=== PATIENT | female | born 1960 | race Caucasian/White ===

== ENCOUNTER 2017-04-21 09:51 | Outpatient (RCR) | payer BC ==
[~2017-04-21 09:51] MED LIST: ACHD5005 PO; CALC-250 PO; CLD600T PO; ESTR0.5T3 PO; ESTR1TAB24 PO; LEVO200T6 PO; LUTE20TA PO; LVT.1T PO
== END 2017-07-20 | disposition home or self-care (01) ==
LOC: CARD 09:51
PROVIDERS: ATTEND Family Medicine
DX: R00.2 Palpitations (principal)
CPT/HCPCS: 93225; 93226

== ENCOUNTER → 2017-07-30 | Outpatient (CLI) | payer BC ==
[~2017-07-30] MED LIST changes: +HYDR-3820 PO; +LEVO150T6 PO
--- NOTE | 2017-07-30 10:57 | Diagnostic Imaging Report ---
EXAMINATION: Bilateral breast ultrasound. INDICATION: Left breast lump. FINDINGS: The diagnostic mammogram performed earlier today noted a prominent area of architectural distortion in the upper-outer aspect of the left breast. In this region, there is a poorly defined area of shadowing measuring 2.1 x 1.8 x 2.0 cm. I do suspect that this corresponds to the abnormality seen on the mammogram and this finding should be considered neoplastic until proven otherwise. An ultrasound guided biopsy would be recommended. The mammogram also identified a small rounded area of slightly increased density in the retroareolar region of the right breast. The ultrasound examination of this area, however, shows no discrete abnormality. I suspect that finding was secondary to superimposition. The suspicious microcalcifications in the midportion right breast seen on mammogram could not be identified on this study. IMPRESSION: 1. There is a poorly defined 2.1 x 1.8 x 2.0 cm area of shadowing in the upper-outer aspect of the left breast. This would correspond to the findings on the mammogram and should be considered neoplastic until proven otherwise. Recommendations as above. 2. There is no evidence for malignancy involving the right breast, although the microcalcifications in the midportion of the right breast seen on the mammogram could not be identified.. 3. The results were discussed with Dr. Erazo. CRITICAL FINDING: ACR BI-RADS Category 5: Highly suggestive of malignancy. Dictated by: Dictated on workstation # [id number]
--- NOTE | 2017-07-31 10:29 | Diagnostic Imaging Report ---
Digital mammogram bilateral diagnostic. INDICATION: Left breast lump. This study was compared to the prior exam of 04/17/2010; and 11/04/2013. At this time the patient does complain of a lump in the upper-outer quadrant of the left breast. A marker was placed over the area of concern. The fibroglandular tissue in both breasts is heterogeneously dense. This does limit the sensitivity of this exam. In the area of the marker of concern there is a prominent region of architectural distortion. This finding is worrisome for malignancy. I would recommend that ultrasound of this area be performed for further study. There is a small rounded density in the retroareolar area of the right breast. The tomographic images suggest that this is most likely due to superimposition of the fibroglandular tissue. Even so, it may prove worthwhile to have an ultrasound examination of this area as well. In the 12 o'clock position there is a group of microcalcifications that have developed in the interval since the prior study. The magnification views of these microcalcifications show that they are indeterminate in appearance. I would recommend that these calcifications also be biopsied using a stereotactic device. IMPRESSION: 1. There is a prominent area of architectural distortion in the region of patient's palpable abnormality in the upper-outer aspect of the left breast. This finding is worrisome for malignancy. There is also a small density in the retroareolar area of the right breast. Ultrasound of both breasts would be recommended for further evaluation of these findings. 2. The small group of microcalcifications in the 12 o'clock position of the right breast is technically indeterminate. A stereotactic biopsy would be recommended to exclude malignancy. ACR BI-RADS Category 0: Incomplete. (Needs additional imaging evaluation). Result letter will be mailed to the patient. Note: At least 10% of breast cancer is not imaged by mammography. Dictated by: Dictated on workstation # [id number]
== END ==
LOC: RAD 08:05
PROVIDERS: ATTEND Nurse Practitioner Family
DX: N63 Unspecified lump in breast (principal)
CPT/HCPCS: 77066

== ENCOUNTER → 2017-08-04 | Outpatient (CLI) | payer BC ==
[~2017-08-04] VITALS: Ht 175.3 cm; Wt 73.9 kg
[~2017-08-04] MED LIST changes: -HYDR-3820 PO; -LEVO150T6 PO; +LIDOCAINE 1% INJ 20 ML (XYLOCAINE) VIAL INJ ONE
[2017-08-04 14:00] VITALS: BP 132/78
[2017-08-04 14:56] VITALS: BP 122/70
--- NOTE | 2017-08-04 16:59 | Diagnostic Imaging Report ---
EXAMINATION: Ultrasound-guided biopsy of a breast mass. A metallic clip placed to reginaldo biopsy site. INDICATION: Left breast mass. CONSENT: Informed consent was obtained from the patient. The risks, benefits, potential complications and alternatives were reviewed and all questions answered to the patient's satisfaction. FINDINGS: Ultrasound images demonstrate a 1:30 o'clock position left breast mass. PROCEDURE: After sterile preparation and draping, 1% lidocaine was utilized for local anesthesia. A 13-gauge guide needle was introduced under live ultrasound guidance to the level of the lesion. Good needle position was documented with ultrasound images. 14-gauge biopsy needle was utilized and core biopsies were performed. Multiple samples were obtained and sent to pathology. A metallic clip was placed to reginaldo the site of the biopsy. A subsequent mammogram is performed and confirms the proper positioning of the clip. The patient tolerated the procedure well with no immediate complications. IMPRESSION: Successful ultrasound-guided core biopsy of 1:30 o'clock position left breast mass. Dictated by: Dictated on workstation # [id number]
--- NOTE | 2017-08-05 13:58 | Diagnostic Imaging Report ---
EXAMINATION: CC and lateral mammographic views of the left breast were performed. INDICATION: Documentation of clip position after ultrasound-guided biopsy. FINDINGS: The breasts are composed of heterogeneously dense parenchyma which may decrease mammographic sensitivity. There is a subtle area of architectural distortion, better seen on the true lateral view, with the biopsy clip at the center of this region which is laterally located in the CC projection. The abnormality is much more subtle on the CC view. IMPRESSION: Satisfactory clip position in the lateral aspect of the left breast after ultrasound-guided biopsy. The Pathology results are pending. Dictated by: Dictated on workstation # [id number]
== END ==
LOC: RAD 13:35
PROVIDERS: ATTEND Nurse Practitioner Family
DX: R92.8 Other abnormal and inconclusive findings on diagnostic imaging of breast (principal)
CPT/HCPCS: 19083

== ENCOUNTER → 2017-08-05 | Outpatient (CLI) | payer BC ==
[~2017-08-05] MED LIST changes: +HYDR-3820 PO; +LEVO150T6 PO; +NS (IVPB) 0 ML ONE
== END ==
LOC: RAD 10:41
PROVIDERS: ATTEND Nurse Practitioner Family
DX: R92.8 Other abnormal and inconclusive findings on diagnostic imaging of breast (principal)

== ENCOUNTER → 2017-08-11 | Outpatient (CLI) | payer BC ==
[~2017-08-11] MED LIST changes: -HYDR-3820 PO; -LEVO150T6 PO; -LIDOCAINE 1% INJ 20 ML (XYLOCAINE) VIAL INJ ONE; -NS (IVPB) 0 ML ONE
--- NOTE | 2017-08-11 17:29 | Diagnostic Imaging Report ---
EXAMINATION: PET-CT TECHNIQUE: Serum glucose level at the time of the study is: 111 mg/dL. 11.7 mCi of FDG was administered intravenously followed by obtaining PET images with corresponding noncontrast CT scan images. The CT scan was performed for anatomic correlation and attenuation correction and was not performed according to the diagnostic protocol of the areas covered. The scan was performed from the head to mid thighs. INDICATION: Left breast cancer. FINDINGS: There is symmetric FDG uptake seen in the brain. There is no increased FDG uptake seen in the neck. There is no significant hypermetabolism seen in the breasts to correspond with the biopsy proven breast cancer. No hypermetabolic lymph nodes are seen in the left axilla and no enlarged lymph nodes are seen on the corresponding localizer CT images. In general, no significant hypermetabolism is seen in the chest. IN THE ABDOMEN AND PELVIS: There is prominent tracer uptake seen in the abdomen and pelvis within the urinary tracts related to excretion with no suspicious hypermetabolic mass identified. IMPRESSION: No hypermetabolic mass is seen. Dictated by: Dictated on workstation # [id number]
== END ==
LOC: RAD 07:48
PROVIDERS: ATTEND Family Medicine
DX: C50.911 Malignant neoplasm of unspecified site of right female breast (principal)

== ENCOUNTER → 2017-08-13 | Outpatient (CLI) | payer BC ==
[~2017-08-13] MED LIST changes: +HYDR-3820 PO; +LEVO150T6 PO
== END ==
LOC: CARD 09:45
PROVIDERS: ATTEND Family Medicine
DX: C50.912 Malignant neoplasm of unspecified site of left female breast (principal)
CPT/HCPCS: 93306

== ENCOUNTER → 2017-08-14 | Outpatient (CLI) | payer BC ==
[~2017-08-14] MED LIST changes: +GADOBUTROL 7.5 MMOL/7.5 ML (GADAVIST) VIAL IV ONE
--- NOTE | 2017-08-27 09:16 | Diagnostic Imaging Report ---
TECHNIQUE: Utilizing 1.5 Catrina magnet, patient was placed in a prone position with 8-channel dual breast coil utilized. Axial STIR precontrasted image and axial T1 fat-sat postcontrast high-resolution images obtained. Sagittal T2-weighted images precontrast, bilaterally, as well. Sagittal vibrant temporal images were obtained pre and post contrast with bolus technique utilized of gadolinium. Images are postcontrast immediately and subsequently for 7 minutes. Pre and post contrasted images are then evaluated with [employer] for evaluation of possible angiogenesis. INDICATION: Breast cancer COMPARISON: August 04, 2017 and July 30, 2017 FINDINGS: The bilateral breasts demonstrate moderate background glandularity. The bilateral breasts demonstrate mild background enhancement. No significant axillary or internal mammary adenopathy. No suspicious mass or non-mass enhancement within the right breast. Within the middle to posterior depth of the left breast at 3:00, there is an irregular region of non-mass enhancement and distortion. This measures 2.6 x 2.4 cm. A similar appearing spicule of enhancement is identified extending medially from this region of non-mass enhancement and terminates within the region central to the nipple. Including the spicule, the overall dimension of this non-mass enhancement within the transverse dimension is 3.5 cm. An additional small focus of similar-appearing enhancement is identified 1 cm anterior to the region of non-mass enhancement within the lateral left breast. No additional suspicious mass or non-mass enhancement within the left breast. IMPRESSION: 1. Irregular non-mass enhancement and distortion within the left breast at 3:00 is consistent with patient's known carcinoma. Overall dimensions are 2.6 x 2.4 x 3.5 cm. However, there is an additional tiny focus of enhancement 1 cm anterior to this non-mass enhancement which is concerning for a tiny satellite lesion. Including this questionable satellite lesion, the entire AP dimension of this region is 5.2 cm. 2. No definite adenopathy identified. 3. No evidence of malignancy within the right breast. BI-RADS category 6: Known malignancy Followup: Continued surgical consultation. Dictated by: Dictated on workstation # [id number]
== END ==
LOC: RAD 08:14
PROVIDERS: ATTEND Internal Medicine Hematology & Oncology
DX: C50.412 Malignant neoplasm of upper-outer quadrant of left female breast (principal); Z53.29 Procedure and treatment not carried out because of patient's decision for other reasons

== ENCOUNTER 2017-08-18 11:02 | Outpatient (CLI) | payer BC ==
[~2017-08-18] VITALS: Ht 175.3 cm; Wt 73.9 kg
[~2017-08-18 11:02] MED LIST changes: -GADOBUTROL 7.5 MMOL/7.5 ML (GADAVIST) VIAL IV ONE; -HYDR-3820 PO; -LEVO150T6 PO
[2017-08-18] MEDS ORDERED: LEVO150T6 PO (14:03)
[2017-08-19] MEDS ORDERED: HYDR-3820 PO (14:10)
== END 2017-08-18 14:29 ==
LOC: PREOP 11:02
PROVIDERS: ATTEND Surgery
DX: Z01.818 Encounter for other preprocedural examination (principal); C50.912 Malignant neoplasm of unspecified site of left female breast

== ENCOUNTER 2017-08-18 15:07 | Outpatient (RCR) | payer BC ==
[2017-08-11 11:34] LABS: BASOPHILS % (AUTO) 0 % (0-10); EOSINOPHILS # (AUTO) 0.2 10^3/uL (0.0-0.3); EOSINOPHILS % (AUTO) 3 % (0-10); LYMPHOCYTES # (AUTO) 1.5 X 10^3 (1.0-4.0); LYMPHOCYTES % (AUTO) 30 % (12-44); MEAN CORPUSCULAR HEMOGLOBIN 31 PG (25-34); MEAN CORPUSCULAR HGB CONC 34 G/DL (32-36); MEAN CORPUSCULAR VOLUME 91 FL (80-99); MEAN PLATELET VOLUME 10.2 FL (7.4-10.4); MONOCYTES # (AUTO) 0.4 X 10^3 (0.0-1.0); MONOCYTES % (AUTO) 7 % (0-12); NEUTROPHILS % (AUTO) 60 % (42-75); PLATELET COUNT 234 10^3/uL (130-400); RED BLOOD COUNT 4.33 10^6/uL (4.35-5.85); RED CELL DISTRIBUTION WIDTH 11.9 % (10.0-14.5)
[2017-08-11 11:59] LABS: ALANINE AMINOTRANSFERASE 18 U/L (0-55); ALBUMIN 4.3 GM/DL (3.2-4.5); ANION GAP 8 MMOL/L (5-14); ASPARTATE AMINO TRANSFERASE 15 U/L (5-34); BILIRUBIN,TOTAL 0.6 MG/DL (0.1-1.0); BLOOD UREA NITROGEN 7 MG/DL (7-18); BUN/CREATININE RATIO 9; CALCIUM 9.3 MG/DL (8.5-10.1); CARBON DIOXIDE 26 MMOL/L (21-32); CHLORIDE 105 MMOL/L (98-107); CREATININE SERUM 0.74 MG/DL (0.60-1.30); GFR ESTIMATED > 60; GLUCOSE 101 MG/DL (70-105); POTASSIUM 4.4 MMOL/L (3.6-5.0); SODIUM 139 MMOL/L (135-145); TOTAL PROTEIN 6.9 GM/DL (6.4-8.2)
[2017-08-11 12:20] LABS: THYROID STIMULATING HORMONE 0.03 UIU/ML (0.35-4.94)
[~2017-08-18 15:07] MED LIST changes: +LEVO150T6 PO; +LORazepam INJ 2 MG/ML VIAL CANCER CTR IV NR
[2017-08-19] MEDS ORDERED: HYDR-3820 PO (14:10)
== END 2017-08-22 | disposition home or self-care (01) ==
LOC: ONC 15:07
PROVIDERS: ATTEND Internal Medicine Hematology & Oncology
DX: C50.412 Malignant neoplasm of upper-outer quadrant of left female breast (principal); Z85.850 Personal history of malignant neoplasm of thyroid; E89.0 Postprocedural hypothyroidism; Z17.0 Estrogen receptor positive status [ER+]; Z80.42 Family history of malignant neoplasm of prostate; Z80.8 Family history of malignant neoplasm of other organs or systems; Z79.899 Other long term (current) drug therapy
CPT/HCPCS: 36415; 80053; 84443; 85025; 96374; 99213; 99214

== ENCOUNTER 2017-08-19 11:50 | Day surgery (SDC) | payer BC ==
[~2017-08-19] VITALS: Ht 175.3 cm; Wt 73.9 kg
--- NOTE | 2017-08-19 09:35 | History & Physicial ---
History of Present Illness History of Present Illness Reason for visit/HPI to undergo Ubiyzh-a-Caiw placement to facilitate systemic therapy regarding duct carcinoma of the left breast Date of Admission Date Seen by Provider: Aug 19, 2017 Time Seen by Provider: 09:31 I consulted on this patient on 08/19/17 09:31 Attending Physician Catalina Lowe MD Admitting Physician Destiny Erazo MD Consult Allergies and Home Medications Allergies Coded Allergies: No Known Drug Allergies (Unverified , 08/18/17) Home Medications Cholecalciferol 5,000 Unit Capsule, 5,000 UNIT PO DAILY, (Reported) Levothyroxine Sodium 150 Mcg Tablet, 150 MCG PO DAILY, (Reported) Lutein 20 Mg Tablet, 20 MG PO DAILY, (Reported) Past Afumncp-Yaikib-Xfkjfo Hx Patient Social History Marrital Status: Employed/Student: employed Immunizations Up To Date Date of Influenza Vaccine: Aug 23, 2013 Surgeries Hysterectomy, Thyroidectomy Respiratory No Cardiovascular No Neurological No Reproductive System : No Hx Reproductive Disorders: Yes Genitourinary No Gastrointestinal No Musculoskeletal Yes Arthritis Endocrine History of Endocrine Disorders: Yes Endocrine Disorders: Hypothyroidsim HEENT History of HEENT Disorders: No Cancer Yes Breast Psychosocial History of Psychiatric Problem: No Integumentary History of Skin or Integumenta: No Blood Transfusions History of Blood Disorders: No Family Medical History Significant Family History: Heart Disease, Cancer Family Hx: Cancer 03 FATHER (LUNG ) 09 SISTER (MELANOMA OF THE EYE) Family history: Cardiovascular disease 03 FATHER (TACHYCARDIA ) Family history: Diabetes mellitus 03 MOTHER 09 SISTER Family history: Osteoporosis 03 MOTHER OTHER SPECIFIED EYE DISORDER 03 MOTHER Constitutional: no symptoms reported EENTM: no symptoms reported Cardiovascular: no symptoms reported Gastrointestinal: no symptoms reported Genitourinary: no symptoms reported Musculoskeletal: no symptoms reported Skin: no symptoms reported Physical Exam Vital Signs Capillary Refill : General Appearance: No Apparent Distress Neck: Normal Inspection Respiratory: Lungs Clear Cardiovascular: Regular Rate, Rhythm Gastrointestinal: Non Tender Extremity: Normal Inspection Neurologic/Psychiatric: Alert, Oriented x3 Skin: Warm/Dry Assessment/Plan Assessment and Plan lady with ductal carcinoma of the left breast. For Osxolc-d-Fitm placement to initiate neoadjuvant systemic therapy. Problems: CATALINA LOWE MD Aug 19, 2017 9:35 am
[~2017-08-19 11:50] MED LIST changes: -LORazepam INJ 2 MG/ML VIAL CANCER CTR IV NR
--- OUTSIDE RECORDS SUMMARY | 2017-08-19 12:09 | XMS REPORT | Continuity of Care Document ---
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 04/24/2016 LUC BAZZI, CATALINA Gordon Ot Z01.818 ENCOUNTER FOR OTHER PREPROCEDURAL EXAMIN 04/25/2016 CATALINA CALLE MD Ot Z01.818 ENCOUNTER FOR OTHER PREPROCEDURAL EXAMIN 04/28/2016 CATALINA CALLE MD Ot K62.1 RECTAL POLYP 04/28/2016 CATALINA CALLE MD Ot Z12.11 ENCOUNTER FOR SCREENING FOR MALIGNANT NE 04/28/2016 CATALINA CALLE MD Ot Z80.0 FAMILY HISTORY OF MALIGNANT NEOPLASM OF 04/29/2016 CATALINA CALLE MD Ot K62.1 RECTAL POLYP 04/29/2016 CATALINA CALLE MD Ot Z12.11 ENCOUNTER FOR SCREENING FOR MALIGNANT NE 04/29/2016 CATALINA CALLE MD Ot Z80.0 FAMILY HISTORY OF MALIGNANT NEOPLASM OF 05/04/2016 CATALINA CALLE MD Ot K62.1 RECTAL POLYP 05/04/2016 CATALINA CALLE MD Ot Z12.11 ENCOUNTER FOR SCREENING FOR MALIGNANT NE 05/04/2016 CATALINA CALLE MD Ot Z80.0 FAMILY HISTORY OF MALIGNANT NEOPLASM OF 04/22/2017 VELASQUEZ DIANA MD Ot R00.2 PALPITATIONS 05/06/2017 VELASQUEZ DIANA MD Ot R00.2 PALPITATIONS 07/20/2017 VELASQUEZ DIANA MD Ot R00.2 PALPITATIONS 07/21/2017 VELASQUEZ DIANA MD Ot R00.2 PALPITATIONS 07/21/2017 LEBRON MD, VELASQUEZ A Ot R00.2 PALPITATIONS 07/29/2017 SCOTT CURRAN IT BUSINESS PROCESS ARCHITECT Ot 721.0 CERVICAL SPONDYLOSIS 07/29/2017 SCOTT CURRAN IT BUSINESS PROCESS ARCHITECT Ot 733.90 BONE CARTILAGE DIS NOS 07/29/2017 SCOTT CURRAN IT BUSINESS PROCESS ARCHITECT Ot V17.81 FAMILY HISTORY, OSTEOPOROSIS 07/29/2017 SCOTT CURRAN IT BUSINESS PROCESS ARCHITECT Ot V76.12 OTH SCREEN MAMMO-MALIGN NEOPLASM OF DAVY 07/29/2017 SCOTT CURRANP Ot V82.81 SCREENING FOR OSTEOPOROSIS 07/29/2017 LEBRON BAZZI, VELASQUEZ A Ot 241.0 NONTOX UNINODULAR GOITER 07/29/2017 LEBRON BAZZI, VELASQUEZ Taylor Ot 715.36 LOC OSTEOARTH NOS-L/LEG 07/29/2017 LEBRON BAZZI, VELASQUEZ Taylor Ot 719.45 JOINT PAIN-PELVIS 07/29/2017 LUC BAZZI, CATALINA Gordon Ot 241.0 NONTOX UNINODULAR GOITER 07/29/2017 LUC BAZZI, CATALINA Gordon Ot 245.2 CHR LYMPHOCYT THYROIDIT 07/29/2017 LUC BAZZI, CATALINA Gordon Ot 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 07/29/2017 LUC BAZZI, CATALINA Gordon Ot V72.83 EXAM PRE-OPERATIVE NEC 07/29/2017 LUC BAZZI, CATALINA Gordon Ot V74.8 SCREEN-BACTERIAL DIS NEC 07/29/2017 LEBRON BAZZI, VELASQUEZ A Ot R00.2 PALPITATIONS 07/30/2017 SCOTT CURRAN IT BUSINESS PROCESS ARCHITECT Ot N63 UNSPECIFIED LUMP IN BREAST 08/11/2017 SCOTT CURRAN IT BUSINESS PROCESS ARCHITECT Ot 721.0 CERVICAL SPONDYLOSIS 08/11/2017 SCOTT CURRANP Ot 733.90 BONE CARTILAGE DIS NOS 08/11/2017 SCOTT CURRAN IT BUSINESS PROCESS ARCHITECT Ot V17.81 FAMILY HISTORY, OSTEOPOROSIS 08/11/2017 SCOTT CURRAN IT BUSINESS PROCESS ARCHITECT Ot V76.12 OTH SCREEN MAMMO-MALIGN NEOPLASM OF DAVY 08/11/2017 SCOTT CURRANP Ot V82.81 SCREENING FOR OSTEOPOROSIS 08/11/2017 LEBRON BAZZI, VELASQUEZ A Ot 241.0 NONTOX UNINODULAR GOITER 08/11/2017 LEBRON BAZZI, VELASQUEZ A Ot 715.36 LOC OSTEOARTH NOS-L/LEG 08/11/2017 LEBRON BAZZI, VELASQUEZ Taylor Ot 719.45 JOINT PAIN-PELVIS 08/11/2017 LUC BAZZI, CATALINA Gordon Ot 241.0 NONTOX UNINODULAR GOITER 08/11/2017 LUC BAZZI, CATALINA Gordon Ot 245.2 CHR LYMPHOCYT THYROIDIT 08/11/2017 LUC BAZZI, CATALINA Gordon Ot 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 Visit Date/Time Discharge Status Pt. Type Provider Facility Loc./Unit Complaint [id number] 08/13/2017 09:30:00 2016 23:59:59 CLS Preadmit VELASQUEZ DIANA MD [facility] CARD LT BREAST CA [id number] 08/11/2017 10:30:00 2016 23:59:59 CLS Outpatient JOSE TUCKER [facility] ONC [id number] 08/11/2017 07:48:00 2016 23:59:59 CLS Outpatient VELASQUEZ DIANA MD [facility] RAD LT BREAST CA [id number] 08/05/2017 10:41:00 2016 23:59:59 CLS Outpatient SCOTT CURRAN [facility] RAD ABNORMAL MAMMO, CALCIFICATION RT BREAST [id number] 08/04/2017 13:35:00 2016 23:59:59 CLS Outpatient SCOTT CURRAN [facility] RAD ABNORMAL MAMMO, LESION LT OUTER BREAST [id number] 07/30/2017 08:05:00 2016 23:59:59 CLS Outpatient SCOTT CURRAN IT BUSINESS PROCESS ARCHITECT [facility] RAD L BREAST LUMP [id number] 07/21/2017 10:15:00 2016 23:59:59 CLS Preadmit VELASQUEZ DIANA MD [facility] CARD PALPITATIONS [id number] 04/21/2017 09:51:00 2016 00:01:00 DIS Outpatient VELASQUEZ DIANA MD [facility] CARD PALPITATIONS [id number] 04/28/2016 09:28:00 2015 13:39:00 DIS Outpatient CATALINA CALLE MD [facility] SDC SCREENING [id number] 04/24/2016 07:13:00 2015 14:48:00 DIS Outpatient CATALINA CALLE MD [facility] PREOP SCREENING [id number] 11/09/2013 06:00:00 2012 10:30:00 DIS Outpatient CATALINA CALLE MD [facility] SDC MULTINODULES [id number] 11/08/2013 08:04:00 2012 23:59:59 CLS Outpatient CATALINA CALLE MD [facility] PREOP MULTINODULES [id number] 11/04/2013 08:58:00 2012 23:59:59 CLS Outpatient SCOTT CURRAN IT BUSINESS PROCESS ARCHITECT [facility] RAD SCREENING [id number] 10/31/2013 09:57:00 2012 23:59:59 CLS Outpatient CATALINA CALLE MD [facility] RAD THYROID NODULE [id number] 10/04/2013 11:02:00 2012 23:59:59 CLS Outpatient VELASQUEZ DINAA MD [facility] RAD GOITER, THROAT FULLNESS,LT HIP AND KNEE PAIN
[2017-08-19] MEDS ORDERED: HEParin (CENTRAL IV FLUSH) 500 UNIT/5 ML SYR ONE (12:12)
[2017-08-19] MEDS ORDERED: 0.9% SODIUM CHLORIDE PF INJ 20 ML VIAL ONE (12:13)
[2017-08-19] MEDS ORDERED: BUP/EPI 0.5% 1:200,000 (MARCAINE) 10ML VIAL IJ ONE (12:14)
[2017-08-19] MEDS: LACTATED RINGERS 1,000 ML IV SCH ×2 (12:15→13:35)
[2017-08-19] MEDS ORDERED: ceFAZolin 1,000 MG (ANCEF) VIAL ONE (12:22)
[2017-08-19] MEDS ORDERED: SCOPOLAMINE 1.5 MG (TRANSDERM-SCOP) PATCH ONE (12:39)
[2017-08-19] MEDS ORDERED: FAMOTIDINE 20MG/2ML IV (PEPCID) ONE (12:39)
[2017-08-19] MEDS ORDERED: ONDANSETRON 4 MG/2 ML (SDV) Z0FRAN ONE ×2 (12:39→12:44)
[2017-08-19] MEDS ORDERED: fentaNYL INJECTION 100 MCG/2 ML AMP ONE ×2 (12:43→13:32)
[2017-08-19] MEDS ORDERED: proPOfol 200 MG/20 ML (DIPRIVAN) VIAL IV ONE (12:43)
[2017-08-19] MEDS ORDERED: SEVOFLURANE (ULTANE) 15 ML INHAL SOLN ONE ×4 (12:43→13:51)
[2017-08-19] MEDS ORDERED: LACTATED RINGERS 1,000 ML IV ONE (12:43)
[2017-08-19] MEDS ORDERED: LIDOCAINE PF 2% 5 ML (XYLOCAINE) VIAL ONE (12:43)
[2017-08-19] MEDS ORDERED: MIDAZOLAM 2 MG/2 ML (VERSED) VIAL ONE (12:43)
[2017-08-19] MEDS ORDERED: DEXAMETHASONE 10 MG/ML (DECADRON) 1 ML VIAL ONE (12:44)
[2017-08-19] MEDS ORDERED: CATHETER FLUSH 10 ML SYR IV PRN (12:45)
[2017-08-19] MEDS ORDERED: ceFAZolin 1 GM/NS 50 ML IVPB IV ONE ×2 (12:45)
--- NOTE | 2017-08-19 12:50 | Progress Note-Pre Operative ---
Pre-Operative Progress Note H&P Reviewed The H&P was reviewed, patient examined and no changes noted. Date Seen by Provider: Aug 19, 2017 Time Seen by Provider: 12:43 Date H&P Reviewed: Aug 19, 2017 Time H&P Reviewed: 12:50 Pre-Operative Diagnosis: Left breast carcinoma CATALINA CALLE MD Aug 19, 2017 12:50 pm
[2017-08-19] MEDS ORDERED: ONDANSETRON 4 MG/2 ML (SDV) Z0FRAN IVP ONE (13:15)
[2017-08-19] MEDS ORDERED: SCOPOLAMINE 1.5 MG (TRANSDERM-SCOP) PATCH TD ONE (13:15)
[2017-08-19 13:17] VITALS: BP 122/87
[2017-08-19] MEDS ORDERED: MEPERIDINE (DEMEROL) INJ 50 MG/ML IVP PRN (13:45)
[2017-08-19] MEDS ORDERED: ONDANSETRON 4 MG/2 ML (SDV) Z0FRAN IVP PRN (13:45)
[2017-08-19] MEDS ORDERED: HYDR-3820 PO (14:10)
--- NOTE | 2017-08-19 14:10 | Operative Report ---
Operative Report Date of Procedure/Surgery Aug 19, 2017 Surgeon (s) CATALINA CALLE MD Coat Repair Inspector (s): not applicable Post-Operative Diagnosis same Procedure Performed Ewtska-f-Tukz placement Description of Procedure Anesthesia Type: General Estimated blood loss (mL): minimal Specimen(s) collected/removed none Description of the Procedure Indication for procedure: This lady is due to receive preoperative systemic chemotherapy to manage a 2.1 cm duct carcinoma the left breast. To facilitate this, placing an Pblqkj-n-Zvps was felt to be reasonable. Informed consent was obtained after reviewing the procedure and complications of bacteremia, malfunction of the catheter requiring replacement etc. Description of the procedure: she was placed supine on the operative table and general anesthesia induced using a laryngeal mask airway. A was administered intravenously as prophylaxis against wound infection. Sequential compression devices were placed around her legs, to minimize the risk of venous thrombosis. Her neck and upper chest were prepared and draped in the usual sterile manner. Right internal jugular vein was localized using a 10 MHz ultrasound probe and a floppy guidewire introduced into the heart, under fluoroscopy. A subcutaneous pocket was created over the infra-clavicular fossa and the Gerber catheter brought into the neck, in a retrograde fashion. It was then advanced into the heart, under fluoroscopy, using the peel away sheath. I was able to aspirate and flush the system without any difficulty. The catheter was then connected to the port, that had been primed with heparinized saline. The port itself was secured to the pectoralis fascia using 2-0 Prolene sutures. The incision was then closed using 3-0 Vicryl for the subcutaneous tissue and 4-0 Vicryl for skin , in a subcuticular fashion. 0.5 percent Marcaine with epinephrine was infiltrated along the incision preemptively. She tolerated the procedure well, was extubated and operative room and taken to the recovery room in a stable condition Findings of the Procedure see operative report Allergies and Home Medications Allergies Coded Allergies: No Known Drug Allergies (Unverified , 08/18/17) Home Medications Cholecalciferol 5,000 Unit Capsule, 5,000 UNIT PO DAILY, (Reported) Levothyroxine Sodium 150 Mcg Tablet, 150 MCG PO DAILY, (Reported) Lutein 20 Mg Tablet, 20 MG PO DAILY, (Reported) CATALINA CALLE MD Aug 19, 2017 2:09 pm
--- NOTE | 2017-08-19 14:11 | Discharge Inst-Simple/Standard ---
Discharge Inst-Standard Discharge Medications New, Converted or Re-Newed RX: RX on Chart Patient Instructions/Follow Up Plan of Care/Instructions/FU: dressings off in 48 hours. May use the Gcxpuw-j-Kqjk. Activity as Tolerated: Yes Discharge Diet: No Restrictions CATALINA CALLE MD Aug 19, 2017 2:11 pm
[2017-08-19] MEDS ORDERED: morphine INJ 10 MG/ML 1ML (SYR OR VIAL) ONE (14:21)
[2017-08-19] MEDS: morphine INJ 10 MG/ML 1ML (SYR OR VIAL) IVP PRN ×3 (14:30→14:42)
[2017-08-19 15:10] VITALS: BP 152/80
[2017-08-19 15:40] VITALS: BP 148/78
--- NOTE | 2017-08-19 15:58 | Diagnostic Imaging Report ---
INDICATION: Central line placement. IMPRESSION: 72.7 seconds of fluoroscopy was used by Dr. Lowe during right IJ Groshong catheter insertion. A digital image shows the catheter tip projecting over the right atrium near the cavoatrial junction. Dictated by: Dictated on workstation # [id number]
[2017-08-19 15:59] VITALS: BP 117/75
[2017-08-19 16:35] VITALS: BP 117/75
[2017-08-20] MEDS ORDERED: FAMOTIDINE 20MG/2ML IV (PEPCID) IVP SCH (09:00)
== END 2017-08-19 16:35 | disposition home or self-care (01) ==
LOC: SDC 11:50
PROVIDERS: ATTEND Surgery
DX: C50.912 Malignant neoplasm of unspecified site of left female breast (principal); E03.9 Hypothyroidism, unspecified; Z79.899 Other long term (current) drug therapy
CPT/HCPCS: 87081

== ENCOUNTER → 2017-08-25 | Outpatient (CLI) | payer BC ==
[~2017-08-25] MED LIST changes: +GADOBUTROL 7.5 MMOL/7.5 ML (GADAVIST) VIAL IV ONE; +HYDR-3820 PO
== END ==
LOC: RAD 14:49
PROVIDERS: ATTEND Internal Medicine Hematology & Oncology
DX: C50.412 Malignant neoplasm of upper-outer quadrant of left female breast (principal)
CPT/HCPCS: 77059

== ENCOUNTER 2017-09-17 15:39 | Outpatient (RCR) | payer BC ==
[2017-08-27 13:56] LABS: BASOPHILS % (AUTO) 0 % (0-10); EOSINOPHILS # (AUTO) 0.1 10^3/uL (0.0-0.3); EOSINOPHILS % (AUTO) 2 % (0-10); LYMPHOCYTES # (AUTO) 1.6 X 10^3 (1.0-4.0); LYMPHOCYTES % (AUTO) 23 % (12-44); MEAN CORPUSCULAR HEMOGLOBIN 31 PG (25-34); MEAN CORPUSCULAR HGB CONC 34 G/DL (32-36); MEAN CORPUSCULAR VOLUME 92 FL (80-99); MEAN PLATELET VOLUME 10.3 FL (7.4-10.4); MONOCYTES # (AUTO) 0.5 X 10^3 (0.0-1.0); MONOCYTES % (AUTO) 7 % (0-12); NEUTROPHILS # (AUTO) 4.7 X 10^3 (1.8-7.8); NEUTROPHILS % (AUTO) 67 % (42-75); PLATELET COUNT 258 10^3/uL (130-400); RED CELL DISTRIBUTION WIDTH 11.7 % (10.0-14.5)
[2017-08-27 14:11] LABS: ANION GAP 7 MMOL/L (5-14); BLOOD UREA NITROGEN 11 MG/DL (7-18); BUN/CREATININE RATIO 15; CALCIUM 8.8 MG/DL (8.5-10.1); CARBON DIOXIDE 25 MMOL/L (21-32); CHLORIDE 106 MMOL/L (98-107); CREATININE SERUM 0.72 MG/DL (0.60-1.30); GFR ESTIMATED > 60; GLUCOSE 131 MG/DL (70-105); POTASSIUM 3.7 MMOL/L (3.6-5.0); SODIUM 138 MMOL/L (135-145)
[2017-09-03 14:14] LABS: BASOPHILS # (AUTO) 0.1 10^3/uL (0.0-0.1); BASOPHILS % (AUTO) 1 % (0-10); EOSINOPHILS # (AUTO) 0.2 10^3/uL (0.0-0.3); EOSINOPHILS % (AUTO) 6 % (0-10); LYMPHOCYTES # (AUTO) 1.4 X 10^3 (1.0-4.0); LYMPHOCYTES % (AUTO) 38 % (12-44); MEAN CORPUSCULAR HEMOGLOBIN 31 PG (25-34); MEAN CORPUSCULAR HGB CONC 33 G/DL (32-36); MEAN CORPUSCULAR VOLUME 92 FL (80-99); MEAN PLATELET VOLUME 10.5 FL (7.4-10.4); MONOCYTES # (AUTO) 0.6 X 10^3 (0.0-1.0); MONOCYTES % (AUTO) 16 % (0-12); NEUTROPHILS # (AUTO) 1.5 X 10^3 (1.8-7.8); NEUTROPHILS % (AUTO) 39 % (42-75); PLATELET COUNT 188 10^3/uL (130-400); RED BLOOD COUNT 4.17 10^6/uL (4.35-5.85); RED CELL DISTRIBUTION WIDTH 11.5 % (10.0-14.5); WHITE BLOOD COUNT 3.7 10^3/uL (4.3-11.0)
[2017-09-03 14:58] LABS: ANION GAP 8 MMOL/L (5-14); BLOOD UREA NITROGEN 11 MG/DL (7-18); BUN/CREATININE RATIO 16; CALCIUM 9.3 MG/DL (8.5-10.1); CARBON DIOXIDE 27 MMOL/L (21-32); CHLORIDE 102 MMOL/L (98-107); CREATININE SERUM 0.69 MG/DL (0.60-1.30); GFR ESTIMATED > 60; GLUCOSE 90 MG/DL (70-105); POTASSIUM 4.4 MMOL/L (3.6-5.0); SODIUM 137 MMOL/L (135-145)
[2017-09-10 10:31] LABS: BASOPHILS % (AUTO) 0 % (0-10); EOSINOPHILS # (AUTO) 0.1 10^3/uL (0.0-0.3); EOSINOPHILS % (AUTO) 1 % (0-10); LYMPHOCYTES # (AUTO) 1.5 X 10^3 (1.0-4.0); LYMPHOCYTES % (AUTO) 17 % (12-44); MEAN CORPUSCULAR HEMOGLOBIN 31 PG (25-34); MEAN CORPUSCULAR HGB CONC 34 G/DL (32-36); MEAN CORPUSCULAR VOLUME 92 FL (80-99); MEAN PLATELET VOLUME 9.7 FL (7.4-10.4); MONOCYTES # (AUTO) 0.4 X 10^3 (0.0-1.0); MONOCYTES % (AUTO) 5 % (0-12); NEUTROPHILS # (AUTO) 6.6 X 10^3 (1.8-7.8); NEUTROPHILS % (AUTO) 77 % (42-75); PLATELET COUNT 174 10^3/uL (130-400); RED BLOOD COUNT 4.01 10^6/uL (4.35-5.85); WHITE BLOOD COUNT 8.6 10^3/uL (4.3-11.0)
[2017-09-10 10:50] LABS: ALANINE AMINOTRANSFERASE 103 U/L (0-55); ALBUMIN 4.1 GM/DL (3.2-4.5); ANION GAP 8 MMOL/L (5-14); ASPARTATE AMINO TRANSFERASE 32 U/L (5-34); BILIRUBIN,TOTAL 0.3 MG/DL (0.1-1.0); BLOOD UREA NITROGEN 11 MG/DL (7-18); BUN/CREATININE RATIO 16; CALCIUM 9.2 MG/DL (8.5-10.1); CARBON DIOXIDE 25 MMOL/L (21-32); CHLORIDE 104 MMOL/L (98-107); CREATININE SERUM 0.68 MG/DL (0.60-1.30); GFR ESTIMATED > 60; GLUCOSE 105 MG/DL (70-105); SODIUM 137 MMOL/L (135-145); TOTAL PROTEIN 7.2 GM/DL (6.4-8.2)
[~2017-09-17] VITALS: Ht 172.7 cm; Wt 77.6 kg
[~2017-09-17 15:39] MED LIST changes: +CYCLOPHOSPHAMIDE INJECTION 1,000 MG, CYCLOPHOSPHAMIDE INJECTION 100 MG in NS (IVPB) CAN... IV SCH; +DOXORUBICIN HCL IV SCH; +FOSAPREPITANT DIMEGLUMINE 150 MG in NS (IVPB) CANCER CENTER ONLY 150 ML IV SCH; -GADOBUTROL 7.5 MMOL/7.5 ML (GADAVIST) VIAL IV ONE; +LORazepam INJ 2 MG/ML VIAL CANCER CTR IV NR; +LORazepam INJ 2 MG/ML VIAL CANCER CTR IV SCH; +NS IV 500 ML (CANCER CENTER) IV SCH; +NS IV SCH; +PALONOSETRON 0.25 MG, DEXAMETHASONE 10 MG/NS 50 ML IVPB IV PRN; +PEGFILGRASTIM 6 MG/0.6ML NEULASTA SC SCH
[2017-09-17 15:56] LABS: BASOPHILS # (AUTO) 0.1 10^3/uL (0.0-0.1); BASOPHILS % (AUTO) 2 % (0-10); EOSINOPHILS % (AUTO) 1 % (0-10); LYMPHOCYTES # (AUTO) 0.8 X 10^3 (1.0-4.0); LYMPHOCYTES % (AUTO) 29 % (12-44); MEAN CORPUSCULAR HEMOGLOBIN 31 PG (25-34); MEAN CORPUSCULAR HGB CONC 33 G/DL (32-36); MEAN CORPUSCULAR VOLUME 93 FL (80-99); MEAN PLATELET VOLUME 9.8 FL (7.4-10.4); MONOCYTES # (AUTO) 0.3 X 10^3 (0.0-1.0); MONOCYTES % (AUTO) 10 % (0-12); NEUTROPHILS # (AUTO) 1.7 X 10^3 (1.8-7.8); NEUTROPHILS % (AUTO) 59 % (42-75); PLATELET COUNT 260 10^3/uL (130-400); WHITE BLOOD COUNT 2.9 10^3/uL (4.3-11.0)
[2017-09-17 16:16] LABS: ANION GAP 8 MMOL/L (5-14); BLOOD UREA NITROGEN 13 MG/DL (7-18); BUN/CREATININE RATIO 16; CALCIUM 8.9 MG/DL (8.5-10.1); CARBON DIOXIDE 27 MMOL/L (21-32); CHLORIDE 104 MMOL/L (98-107); CREATININE SERUM 0.79 MG/DL (0.60-1.30); GFR ESTIMATED > 60; GLUCOSE 127 MG/DL (70-105); POTASSIUM 4.1 MMOL/L (3.6-5.0); SODIUM 139 MMOL/L (135-145)
== END 2017-09-23 13:42 | disposition home or self-care (01) ==
LOC: ONC 15:39
PROVIDERS: ATTEND Internal Medicine Hematology & Oncology
DX: Z51.11 Encounter for antineoplastic chemotherapy (principal); C50.412 Malignant neoplasm of upper-outer quadrant of left female breast; Z85.850 Personal history of malignant neoplasm of thyroid; E89.0 Postprocedural hypothyroidism; Z17.0 Estrogen receptor positive status [ER+]; Z80.42 Family history of malignant neoplasm of prostate; Z80.8 Family history of malignant neoplasm of other organs or systems; Z79.899 Other long term (current) drug therapy
CPT/HCPCS: 36415; 36591; 80048; 80053; 85025; 96367; 96372; 96374; 96375; 96411; 96413

== ENCOUNTER 2017-10-14 10:16 | Outpatient (RCR) | payer BC ==
[2017-09-24 15:24] LABS: BASOPHILS # (AUTO) 0.1 10^3/uL (0.0-0.1); BASOPHILS % (AUTO) 1 % (0-10); EOSINOPHILS % (AUTO) 0 % (0-10); LYMPHOCYTES # (AUTO) 1.8 X 10^3 (1.0-4.0); LYMPHOCYTES % (AUTO) 13 % (12-44); MEAN CORPUSCULAR HEMOGLOBIN 32 PG (25-34); MEAN CORPUSCULAR HGB CONC 34 G/DL (32-36); MEAN CORPUSCULAR VOLUME 94 FL (80-99); MEAN PLATELET VOLUME 9.9 FL (7.4-10.4); MONOCYTES # (AUTO) 0.9 X 10^3 (0.0-1.0); MONOCYTES % (AUTO) 7 % (0-12); NEUTROPHILS # (AUTO) 10.9 X 10^3 (1.8-7.8); NEUTROPHILS % (AUTO) 80 % (42-75); PLATELET COUNT 164 10^3/uL (130-400); RED BLOOD COUNT 3.71 10^6/uL (4.35-5.85); WHITE BLOOD COUNT 13.6 10^3/uL (4.3-11.0)
[2017-09-24 15:44] LABS: ALANINE AMINOTRANSFERASE 42 U/L (0-55); ANION GAP 9 MMOL/L (5-14); ASPARTATE AMINO TRANSFERASE 22 U/L (5-34); BILIRUBIN,TOTAL 0.2 MG/DL (0.1-1.0); BLOOD UREA NITROGEN 14 MG/DL (7-18); BUN/CREATININE RATIO 18; CALCIUM 8.9 MG/DL (8.5-10.1); CARBON DIOXIDE 23 MMOL/L (21-32); CHLORIDE 108 MMOL/L (98-107); CREATININE SERUM 0.79 MG/DL (0.60-1.30); GFR ESTIMATED > 60; GLUCOSE 132 MG/DL (70-105); POTASSIUM 3.9 MMOL/L (3.6-5.0); SODIUM 140 MMOL/L (135-145); TOTAL PROTEIN 6.7 GM/DL (6.4-8.2)
[2017-10-01 14:10] LABS: BASOPHILS % (AUTO) 1 % (0-10); EOSINOPHILS % (AUTO) 0 % (0-10); LYMPHOCYTES # (AUTO) 1.1 X 10^3 (1.0-4.0); LYMPHOCYTES % (AUTO) 21 % (12-44); MEAN CORPUSCULAR HEMOGLOBIN 31 PG (25-34); MEAN CORPUSCULAR HGB CONC 34 G/DL (32-36); MEAN CORPUSCULAR VOLUME 93 FL (80-99); MONOCYTES # (AUTO) 0.3 X 10^3 (0.0-1.0); MONOCYTES % (AUTO) 6 % (0-12); NEUTROPHILS # (AUTO) 3.6 X 10^3 (1.8-7.8); NEUTROPHILS % (AUTO) 72 % (42-75); PLATELET COUNT 176 10^3/uL (130-400); RED BLOOD COUNT 3.67 10^6/uL (4.35-5.85); RED CELL DISTRIBUTION WIDTH 12.8 % (10.0-14.5)
[2017-10-01 14:30] LABS: ANION GAP 8 MMOL/L (5-14); BLOOD UREA NITROGEN 13 MG/DL (7-18); BUN/CREATININE RATIO 19; CALCIUM 9.3 MG/DL (8.5-10.1); CARBON DIOXIDE 27 MMOL/L (21-32); CHLORIDE 103 MMOL/L (98-107); CREATININE SERUM 0.68 MG/DL (0.60-1.30); GFR ESTIMATED > 60; GLUCOSE 92 MG/DL (70-105); POTASSIUM 4.7 MMOL/L (3.6-5.0); SODIUM 138 MMOL/L (135-145)
[2017-10-08 13:34] LABS: BASOPHILS # (AUTO) 0.1 10^3/uL (0.0-0.1); BASOPHILS % (AUTO) 0 % (0-10); EOSINOPHILS # (AUTO) 0.1 10^3/uL (0.0-0.3); EOSINOPHILS % (AUTO) 0 % (0-10); LYMPHOCYTES # (AUTO) 1.5 X 10^3 (1.0-4.0); LYMPHOCYTES % (AUTO) 9 % (12-44); MEAN CORPUSCULAR HEMOGLOBIN 32 PG (25-34); MEAN CORPUSCULAR HGB CONC 34 G/DL (32-36); MEAN CORPUSCULAR VOLUME 95 FL (80-99); MEAN PLATELET VOLUME 9.6 FL (7.4-10.4); MONOCYTES # (AUTO) 0.8 X 10^3 (0.0-1.0); MONOCYTES % (AUTO) 5 % (0-12); NEUTROPHILS # (AUTO) 13.1 X 10^3 (1.8-7.8); NEUTROPHILS % (AUTO) 85 % (42-75); PLATELET COUNT 181 10^3/uL (130-400); RED BLOOD COUNT 3.41 10^6/uL (4.35-5.85); RED CELL DISTRIBUTION WIDTH 14.3 % (10.0-14.5); WHITE BLOOD COUNT 15.5 10^3/uL (4.3-11.0)
[2017-10-08 14:01] LABS: ALANINE AMINOTRANSFERASE 26 U/L (0-55); ALBUMIN 4.1 GM/DL (3.2-4.5); ANION GAP 10 MMOL/L (5-14); ASPARTATE AMINO TRANSFERASE 17 U/L (5-34); BILIRUBIN,TOTAL 0.3 MG/DL (0.1-1.0); BLOOD UREA NITROGEN 10 MG/DL (7-18); BUN/CREATININE RATIO 13; CARBON DIOXIDE 23 MMOL/L (21-32); CHLORIDE 108 MMOL/L (98-107); GFR ESTIMATED > 60; GLUCOSE 123 MG/DL (70-105); POTASSIUM 3.7 MMOL/L (3.6-5.0); SODIUM 141 MMOL/L (135-145); TOTAL PROTEIN 6.7 GM/DL (6.4-8.2)
[~2017-10-14] VITALS: Ht 172.7 cm; Wt 78.0 kg
[~2017-10-14 10:16] MED LIST changes: -LORazepam INJ 2 MG/ML VIAL CANCER CTR IV NR
[2017-10-14 10:40] LABS: BASOPHILS % (AUTO) 1 % (0-10); EOSINOPHILS % (AUTO) 0 % (0-10); LYMPHOCYTES # (AUTO) 0.5 X 10^3 (1.0-4.0); LYMPHOCYTES % (AUTO) 11 % (12-44); MEAN CORPUSCULAR HEMOGLOBIN 32 PG (25-34); MEAN CORPUSCULAR HGB CONC 33 G/DL (32-36); MEAN CORPUSCULAR VOLUME 95 FL (80-99); MEAN PLATELET VOLUME 9.5 FL (7.4-10.4); MONOCYTES # (AUTO) 0.1 X 10^3 (0.0-1.0); MONOCYTES % (AUTO) 1 % (0-12); NEUTROPHILS # (AUTO) 4.1 X 10^3 (1.8-7.8); NEUTROPHILS % (AUTO) 87 % (42-75); PLATELET COUNT 177 10^3/uL (130-400); RED BLOOD COUNT 3.51 10^6/uL (4.35-5.85); RED CELL DISTRIBUTION WIDTH 14.1 % (10.0-14.5); WHITE BLOOD COUNT 4.7 10^3/uL (4.3-11.0)
[2017-10-14 10:58] LABS: ANION GAP 8 MMOL/L (5-14); BLOOD UREA NITROGEN 16 MG/DL (7-18); BUN/CREATININE RATIO 24; CALCIUM 8.8 MG/DL (8.5-10.1); CARBON DIOXIDE 25 MMOL/L (21-32); CHLORIDE 105 MMOL/L (98-107); CREATININE SERUM 0.68 MG/DL (0.60-1.30); GFR ESTIMATED > 60; GLUCOSE 116 MG/DL (70-105); POTASSIUM 4.1 MMOL/L (3.6-5.0); SODIUM 138 MMOL/L (135-145)
== END 2017-10-19 10:18 | disposition home or self-care (01) ==
LOC: ONC 10:16
PROVIDERS: ATTEND Internal Medicine Hematology & Oncology
DX: Z51.11 Encounter for antineoplastic chemotherapy (principal); C50.412 Malignant neoplasm of upper-outer quadrant of left female breast; Z85.850 Personal history of malignant neoplasm of thyroid; E89.0 Postprocedural hypothyroidism; Z17.0 Estrogen receptor positive status [ER+]; Z80.42 Family history of malignant neoplasm of prostate; Z80.8 Family history of malignant neoplasm of other organs or systems; Z79.899 Other long term (current) drug therapy
CPT/HCPCS: 36415; 36591; 80048; 80053; 84443; 85025; 96367; 96368; 96372; 96375; 96411; 96413

== ENCOUNTER → 2017-10-22 | Outpatient (CLI) | payer BC ==
[~2017-10-22] MED LIST changes: -CYCLOPHOSPHAMIDE INJECTION 1,000 MG, CYCLOPHOSPHAMIDE INJECTION 100 MG in NS (IVPB) CAN... IV SCH; -DOXORUBICIN HCL IV SCH; -FOSAPREPITANT DIMEGLUMINE 150 MG in NS (IVPB) CANCER CENTER ONLY 150 ML IV SCH; -LORazepam INJ 2 MG/ML VIAL CANCER CTR IV SCH; -NS IV 500 ML (CANCER CENTER) IV SCH; -NS IV SCH; -PALONOSETRON 0.25 MG, DEXAMETHASONE 10 MG/NS 50 ML IVPB IV PRN; -PEGFILGRASTIM 6 MG/0.6ML NEULASTA SC SCH
--- NOTE | 2017-10-22 22:02 | Diagnostic Imaging Report ---
EXAMINATION: Ultrasound of the left breast. INDICATION: Left breast cancer followup after treatment with chemotherapy. FINDINGS: There is a heterogenous hypoechoic mass measuring 2.0 x 1.4 x 1.9 cm. This is associated with significant shadowing. Area of increased vascularity anterior to it is seen. Prior measurements were 2.1 x 1.7 x 2.0 cm. This is located at 1:30 o'clock position, 10 cm from the nipple. The surrounding area demonstrates no additional nodules. IMPRESSION: Suggestion of minimal decrease in the size of biopsy-proven cancer in the left breast at the 1:30 o'clock position. ACR BI-RADS Category 6: Known biopsy proven malignancy. Result letter will be mailed to the patient. Note: At least 10% of breast cancer is not imaged by mammography. Dictated by: Dictated on workstation # [id number]
== END ==
LOC: RAD 13:41
PROVIDERS: ATTEND Nurse Practitioner Adult Health
DX: C50.412 Malignant neoplasm of upper-outer quadrant of left female breast (principal)
CPT/HCPCS: 76642

== ENCOUNTER 2017-12-17 14:56 | Outpatient (RCR) | payer BC ==
[2017-10-22 15:15] LABS: BASOPHILS % (AUTO) 0 % (0-10); EOSINOPHILS % (AUTO) 0 % (0-10); HEMATOCRIT 32 % (35-52); HEMOGLOBIN 10.7 G/DL (11.5-16.0); LYMPHOCYTES # (AUTO) 0.6 X 10^3 (1.0-4.0); LYMPHOCYTES % (AUTO) 2 % (12-44); MEAN CORPUSCULAR HEMOGLOBIN 32 PG (25-34); MEAN CORPUSCULAR HGB CONC 33 G/DL (32-36); MEAN CORPUSCULAR VOLUME 96 FL (80-99); MEAN PLATELET VOLUME 9.5 FL (7.4-10.4); MONOCYTES # (AUTO) 0.2 X 10^3 (0.0-1.0); MONOCYTES % (AUTO) 1 % (0-12); NEUTROPHILS # (AUTO) 26.4 X 10^3 (1.8-7.8); NEUTROPHILS % (AUTO) 97 % (42-75); PLATELET COUNT 197 10^3/uL (130-400); RED BLOOD COUNT 3.33 10^6/uL (4.35-5.85); RED CELL DISTRIBUTION WIDTH 15.6 % (10.0-14.5); WHITE BLOOD COUNT 27.2 10^3/uL (4.3-11.0)
[2017-10-22 15:31] LABS: BUN/CREATININE RATIO 18; CALCIUM 9.2 MG/DL (8.5-10.1); CARBON DIOXIDE 24 MMOL/L (21-32); CHLORIDE 105 MMOL/L (98-107); CREATININE SERUM 0.73 MG/DL (0.60-1.30); GFR ESTIMATED > 60; GLUCOSE 249 MG/DL (70-105); POTASSIUM 3.7 MMOL/L (3.6-5.0); SODIUM 138 MMOL/L (135-145)
[2017-10-29 14:42] LABS: BASOPHILS % (AUTO) 0 % (0-10); EOSINOPHILS % (AUTO) 0 % (0-10); HEMATOCRIT 31 % (35-52); HEMOGLOBIN 10.5 G/DL (11.5-16.0); LYMPHOCYTES # (AUTO) 0.2 X 10^3 (1.0-4.0); LYMPHOCYTES % (AUTO) 3 % (12-44); MEAN CORPUSCULAR HEMOGLOBIN 32 PG (25-34); MEAN CORPUSCULAR HGB CONC 34 G/DL (32-36); MEAN CORPUSCULAR VOLUME 95 FL (80-99); MEAN PLATELET VOLUME 9.9 FL (7.4-10.4); MONOCYTES % (AUTO) 0 % (0-12); NEUTROPHILS # (AUTO) 8.9 X 10^3 (1.8-7.8); NEUTROPHILS % (AUTO) 97 % (42-75); PLATELET COUNT 333 10^3/uL (130-400); RED BLOOD COUNT 3.28 10^6/uL (4.35-5.85); RED CELL DISTRIBUTION WIDTH 15.4 % (10.0-14.5); WHITE BLOOD COUNT 9.1 10^3/uL (4.3-11.0)
[2017-10-29 14:54] LABS: BUN/CREATININE RATIO 15; CALCIUM 9.5 MG/DL (8.5-10.1); CARBON DIOXIDE 22 MMOL/L (21-32); CHLORIDE 104 MMOL/L (98-107); CREATININE SERUM 0.89 MG/DL (0.60-1.30); GFR ESTIMATED > 60; GLUCOSE 153 MG/DL (70-105); POTASSIUM 3.6 MMOL/L (3.6-5.0); SODIUM 137 MMOL/L (135-145)
[2017-11-05 14:11] LABS: BASOPHILS % (AUTO) 0 % (0-10); EOSINOPHILS % (AUTO) 0 % (0-10); HEMATOCRIT 33 % (35-52); HEMOGLOBIN 11.2 G/DL (11.5-16.0); LYMPHOCYTES # (AUTO) 0.3 X 10^3 (1.0-4.0); LYMPHOCYTES % (AUTO) 4 % (12-44); MEAN CORPUSCULAR HEMOGLOBIN 32 PG (25-34); MEAN CORPUSCULAR HGB CONC 34 G/DL (32-36); MEAN CORPUSCULAR VOLUME 96 FL (80-99); MEAN PLATELET VOLUME 9.6 FL (7.4-10.4); MONOCYTES % (AUTO) 1 % (0-12); NEUTROPHILS # (AUTO) 7.5 X 10^3 (1.8-7.8); NEUTROPHILS % (AUTO) 96 % (42-75); PLATELET COUNT 341 10^3/uL (130-400); RED BLOOD COUNT 3.46 10^6/uL (4.35-5.85); RED CELL DISTRIBUTION WIDTH 15.3 % (10.0-14.5); WHITE BLOOD COUNT 7.9 10^3/uL (4.3-11.0)
[2017-11-05 14:32] LABS: BUN/CREATININE RATIO 20; CALCIUM 9.4 MG/DL (8.5-10.1); CARBON DIOXIDE 25 MMOL/L (21-32); CHLORIDE 103 MMOL/L (98-107); CREATININE SERUM 0.66 MG/DL (0.60-1.30); GFR ESTIMATED > 60; GLUCOSE 163 MG/DL (70-105); POTASSIUM 3.8 MMOL/L (3.6-5.0); SODIUM 135 MMOL/L (135-145)
[2017-11-11 13:17] LABS: BASOPHILS # (AUTO) 0.1 10^3/uL (0.0-0.1); BASOPHILS % (AUTO) 1 % (0-10); EOSINOPHILS # (AUTO) 0.1 10^3/uL (0.0-0.3); EOSINOPHILS % (AUTO) 2 % (0-10); HEMATOCRIT 34 % (35-52); HEMOGLOBIN 11.6 G/DL (11.5-16.0); LYMPHOCYTES # (AUTO) 0.8 X 10^3 (1.0-4.0); LYMPHOCYTES % (AUTO) 13 % (12-44); MEAN CORPUSCULAR HEMOGLOBIN 33 PG (25-34); MEAN CORPUSCULAR HGB CONC 34 G/DL (32-36); MEAN CORPUSCULAR VOLUME 96 FL (80-99); MEAN PLATELET VOLUME 9.6 FL (7.4-10.4); MONOCYTES # (AUTO) 0.5 X 10^3 (0.0-1.0); MONOCYTES % (AUTO) 9 % (0-12); NEUTROPHILS # (AUTO) 4.6 X 10^3 (1.8-7.8); NEUTROPHILS % (AUTO) 76 % (42-75); PLATELET COUNT 274 10^3/uL (130-400); RED BLOOD COUNT 3.53 10^6/uL (4.35-5.85); RED CELL DISTRIBUTION WIDTH 14.9 % (10.0-14.5)
[2017-11-11 13:34] LABS: ALANINE AMINOTRANSFERASE 48 U/L (0-55); ALKALINE PHOSPHATASE 64 U/L (40-136); BILIRUBIN,TOTAL 0.4 MG/DL (0.1-1.0); BUN/CREATININE RATIO 21; CALCIUM 8.9 MG/DL (8.5-10.1); CARBON DIOXIDE 25 MMOL/L (21-32); CHLORIDE 105 MMOL/L (98-107); CREATININE SERUM 0.77 MG/DL (0.60-1.30); GFR ESTIMATED > 60; GLUCOSE 157 MG/DL (70-105); SODIUM 140 MMOL/L (135-145); TOTAL PROTEIN 6.9 GM/DL (6.4-8.2)
[2017-11-19 14:52] LABS: BASOPHILS % (AUTO) 1 % (0-10); EOSINOPHILS # (AUTO) 0.3 10^3/uL (0.0-0.3); EOSINOPHILS % (AUTO) 5 % (0-10); HEMATOCRIT 34 % (35-52); HEMOGLOBIN 11.3 G/DL (11.5-16.0); LYMPHOCYTES # (AUTO) 0.8 X 10^3 (1.0-4.0); LYMPHOCYTES % (AUTO) 15 % (12-44); MEAN CORPUSCULAR HEMOGLOBIN 33 PG (25-34); MEAN CORPUSCULAR HGB CONC 33 G/DL (32-36); MEAN CORPUSCULAR VOLUME 97 FL (80-99); MEAN PLATELET VOLUME 9.5 FL (7.4-10.4); MONOCYTES # (AUTO) 0.7 X 10^3 (0.0-1.0); MONOCYTES % (AUTO) 13 % (0-12); NEUTROPHILS # (AUTO) 3.6 X 10^3 (1.8-7.8); NEUTROPHILS % (AUTO) 67 % (42-75); PLATELET COUNT 247 10^3/uL (130-400); RED BLOOD COUNT 3.48 10^6/uL (4.35-5.85); RED CELL DISTRIBUTION WIDTH 14.6 % (10.0-14.5); WHITE BLOOD COUNT 5.4 10^3/uL (4.3-11.0)
[2017-11-19 15:17] LABS: BUN/CREATININE RATIO 19; CALCIUM 8.8 MG/DL (8.5-10.1); CARBON DIOXIDE 25 MMOL/L (21-32); CHLORIDE 109 MMOL/L (98-107); GFR ESTIMATED > 60; GLUCOSE 134 MG/DL (70-105); POTASSIUM 3.7 MMOL/L (3.6-5.0); SODIUM 140 MMOL/L (135-145)
[2017-11-26 09:08] LABS: BASOPHILS % (AUTO) 1 % (0-10); EOSINOPHILS # (AUTO) 0.2 10^3/uL (0.0-0.3); EOSINOPHILS % (AUTO) 3 % (0-10); HEMATOCRIT 32 % (35-52); HEMOGLOBIN 11.6 G/DL (11.5-16.0); LYMPHOCYTES # (AUTO) 0.9 X 10^3 (1.0-4.0); LYMPHOCYTES % (AUTO) 19 % (12-44); MEAN CORPUSCULAR HEMOGLOBIN 32 PG (25-34); MEAN CORPUSCULAR HGB CONC 36 G/DL (32-36); MEAN CORPUSCULAR VOLUME 90 FL (80-99); MEAN PLATELET VOLUME 8.9 FL (7.4-10.4); MONOCYTES # (AUTO) 0.4 X 10^3 (0.0-1.0); MONOCYTES % (AUTO) 9 % (0-12); NEUTROPHILS # (AUTO) 3.1 X 10^3 (1.8-7.8); NEUTROPHILS % (AUTO) 67 % (42-75); PLATELET COUNT 232 10^3/uL (130-400); RED BLOOD COUNT 3.62 10^6/uL (4.35-5.85); RED CELL DISTRIBUTION WIDTH 13.3 % (10.0-14.5); WHITE BLOOD COUNT 4.6 10^3/uL (4.3-11.0)
[2017-11-26 09:25] LABS: BUN/CREATININE RATIO 16; CALCIUM 9.1 MG/DL (8.5-10.1); CARBON DIOXIDE 24 MMOL/L (21-32); CHLORIDE 108 MMOL/L (98-107); GFR ESTIMATED > 60; GLUCOSE 109 MG/DL (70-105); POTASSIUM 3.8 MMOL/L (3.6-5.0); SODIUM 142 MMOL/L (135-145)
[2017-12-03 09:38] LABS: BASOPHILS % (AUTO) 1 % (0-10); EOSINOPHILS # (AUTO) 0.1 10^3/uL (0.0-0.3); EOSINOPHILS % (AUTO) 2 % (0-10); HEMATOCRIT 35 % (35-52); HEMOGLOBIN 11.8 G/DL (11.5-16.0); LYMPHOCYTES # (AUTO) 0.7 X 10^3 (1.0-4.0); LYMPHOCYTES % (AUTO) 17 % (12-44); MEAN CORPUSCULAR HEMOGLOBIN 33 PG (25-34); MEAN CORPUSCULAR HGB CONC 34 G/DL (32-36); MEAN CORPUSCULAR VOLUME 96 FL (80-99); MEAN PLATELET VOLUME 9.5 FL (7.4-10.4); MONOCYTES # (AUTO) 0.5 X 10^3 (0.0-1.0); MONOCYTES % (AUTO) 10 % (0-12); NEUTROPHILS # (AUTO) 3.1 X 10^3 (1.8-7.8); NEUTROPHILS % (AUTO) 70 % (42-75); PLATELET COUNT 260 10^3/uL (130-400); RED BLOOD COUNT 3.58 10^6/uL (4.35-5.85); WHITE BLOOD COUNT 4.4 10^3/uL (4.3-11.0)
[2017-12-03 10:01] LABS: ALANINE AMINOTRANSFERASE 41 U/L (0-55); ALBUMIN 4.1 GM/DL (3.2-4.5); ALKALINE PHOSPHATASE 66 U/L (40-136); BILIRUBIN,TOTAL 0.4 MG/DL (0.1-1.0); BUN/CREATININE RATIO 16; CALCIUM 9.3 MG/DL (8.5-10.1); CARBON DIOXIDE 25 MMOL/L (21-32); CHLORIDE 106 MMOL/L (98-107); CREATININE SERUM 0.69 MG/DL (0.60-1.30); GFR ESTIMATED > 60; GLUCOSE 95 MG/DL (70-105); SODIUM 139 MMOL/L (135-145); TOTAL PROTEIN 6.9 GM/DL (6.4-8.2)
[2017-12-10 14:38] LABS: BASOPHILS % (AUTO) 0 % (0-10); EOSINOPHILS # (AUTO) 0.1 10^3/uL (0.0-0.3); EOSINOPHILS % (AUTO) 2 % (0-10); HEMATOCRIT 33 % (35-52); HEMOGLOBIN 11.1 G/DL (11.5-16.0); LYMPHOCYTES # (AUTO) 0.9 X 10^3 (1.0-4.0); LYMPHOCYTES % (AUTO) 19 % (12-44); MEAN CORPUSCULAR HEMOGLOBIN 33 PG (25-34); MEAN CORPUSCULAR HGB CONC 34 G/DL (32-36); MEAN CORPUSCULAR VOLUME 96 FL (80-99); MEAN PLATELET VOLUME 9.6 FL (7.4-10.4); MONOCYTES # (AUTO) 0.5 X 10^3 (0.0-1.0); MONOCYTES % (AUTO) 11 % (0-12); NEUTROPHILS # (AUTO) 3.2 X 10^3 (1.8-7.8); NEUTROPHILS % (AUTO) 68 % (42-75); PLATELET COUNT 240 10^3/uL (130-400); RED CELL DISTRIBUTION WIDTH 12.6 % (10.0-14.5); WHITE BLOOD COUNT 4.7 10^3/uL (4.3-11.0)
[2017-12-10 15:00] LABS: BUN/CREATININE RATIO 18; CALCIUM 8.9 MG/DL (8.5-10.1); CARBON DIOXIDE 23 MMOL/L (21-32); CHLORIDE 106 MMOL/L (98-107); GFR ESTIMATED > 60; GLUCOSE 144 MG/DL (70-105); POTASSIUM 3.6 MMOL/L (3.6-5.0); SODIUM 140 MMOL/L (135-145)
[~2017-12-17] VITALS: Ht 172.7 cm; Wt 77.6 kg
[~2017-12-17 14:56] MED LIST changes: +FAMOTIDINE 20MG/2ML IV (CANCER CTR) IV SCH; +NS IV 1000 ML (CANCER CTR) IV SCH; +ONDANSETRON 16 MG, DEXAMETHASONE 10 MG/NS 50 ML IVPB IV SCH; +ONDANSETRON MDV (CANCER CENTER 16 MG, DEXAMETHASONE PF INJ (CANCER C 10 MG in D5W 50 ML... IV SCH; +PACLITAXEL 140 MG in NORMAL SALINE (CANCER CENTER) 250 ML IV SCH; +diphenhydrAMINE 25 MG TAB (BENADRYL) CANCER CENTER PO SCH; +diphenhydrAMINE 50 MG/ML INJ (CANCER CENTER) IV PRN
[2017-12-17 15:18] LABS: BASOPHILS % (AUTO) 1 % (0-10); EOSINOPHILS # (AUTO) 0.1 10^3/uL (0.0-0.3); EOSINOPHILS % (AUTO) 2 % (0-10); HEMATOCRIT 34 % (35-52); HEMOGLOBIN 11.7 G/DL (11.5-16.0); LYMPHOCYTES # (AUTO) 1.1 X 10^3 (1.0-4.0); LYMPHOCYTES % (AUTO) 24 % (12-44); MEAN CORPUSCULAR HEMOGLOBIN 33 PG (25-34); MEAN CORPUSCULAR HGB CONC 35 G/DL (32-36); MEAN CORPUSCULAR VOLUME 96 FL (80-99); MEAN PLATELET VOLUME 9.6 FL (7.4-10.4); MONOCYTES # (AUTO) 0.5 X 10^3 (0.0-1.0); MONOCYTES % (AUTO) 11 % (0-12); NEUTROPHILS # (AUTO) 2.8 X 10^3 (1.8-7.8); NEUTROPHILS % (AUTO) 62 % (42-75); PLATELET COUNT 255 10^3/uL (130-400); RED BLOOD COUNT 3.54 10^6/uL (4.35-5.85); RED CELL DISTRIBUTION WIDTH 12.1 % (10.0-14.5); WHITE BLOOD COUNT 4.5 10^3/uL (4.3-11.0)
[2017-12-17 15:37] LABS: BUN/CREATININE RATIO 18; CARBON DIOXIDE 24 MMOL/L (21-32); CHLORIDE 106 MMOL/L (98-107); CREATININE SERUM 0.72 MG/DL (0.60-1.30); GFR ESTIMATED > 60; GLUCOSE 124 MG/DL (70-105); SODIUM 139 MMOL/L (135-145)
[2017-12-24 13:45] LABS: BASOPHILS % (AUTO) 1 % (0-10); EOSINOPHILS % (AUTO) 1 % (0-10); HEMATOCRIT 35 % (35-52); LYMPHOCYTES % (AUTO) 22 % (12-44); MEAN CORPUSCULAR HEMOGLOBIN 33 PG (25-34); MEAN CORPUSCULAR HGB CONC 35 G/DL (32-36); MEAN CORPUSCULAR VOLUME 95 FL (80-99); MEAN PLATELET VOLUME 9.8 FL (7.4-10.4); MONOCYTES # (AUTO) 0.4 X 10^3 (0.0-1.0); MONOCYTES % (AUTO) 9 % (0-12); NEUTROPHILS % (AUTO) 67 % (42-75); PLATELET COUNT 259 10^3/uL (130-400); RED BLOOD COUNT 3.63 10^6/uL (4.35-5.85); RED CELL DISTRIBUTION WIDTH 12.1 % (10.0-14.5); WHITE BLOOD COUNT 4.4 10^3/uL (4.3-11.0)
[2017-12-24 14:05] LABS: ALANINE AMINOTRANSFERASE 36 U/L (0-55); ALBUMIN 4.1 GM/DL (3.2-4.5); ALKALINE PHOSPHATASE 49 U/L (40-136); BILIRUBIN,TOTAL 0.3 MG/DL (0.1-1.0); BUN/CREATININE RATIO 19; CALCIUM 9.1 MG/DL (8.5-10.1); CARBON DIOXIDE 23 MMOL/L (21-32); CHLORIDE 106 MMOL/L (98-107); CREATININE SERUM 0.69 MG/DL (0.60-1.30); GFR ESTIMATED > 60; GLUCOSE 106 MG/DL (70-105); SODIUM 138 MMOL/L (135-145); TOTAL PROTEIN 6.8 GM/DL (6.4-8.2)
== END 2017-12-24 09:48 | disposition home or self-care (01) ==
LOC: ONC 14:56
PROVIDERS: ATTEND Internal Medicine Hematology & Oncology
DX: Z51.11 Encounter for antineoplastic chemotherapy (principal); C50.412 Malignant neoplasm of upper-outer quadrant of left female breast; Z85.850 Personal history of malignant neoplasm of thyroid; E89.0 Postprocedural hypothyroidism; Z17.0 Estrogen receptor positive status [ER+]; Z80.42 Family history of malignant neoplasm of prostate; Z80.8 Family history of malignant neoplasm of other organs or systems; Z79.899 Other long term (current) drug therapy
CPT/HCPCS: 36591; 80048; 80053; 84443; 85025; 96375; 96413; 99213

== ENCOUNTER 2018-01-07 14:24 | Outpatient (RCR) | payer BC ==
[2017-12-31 14:24] LABS: BASOPHILS % (AUTO) 1 % (0-10); EOSINOPHILS % (AUTO) 1 % (0-10); HEMATOCRIT 35 % (35-52); HEMOGLOBIN 12.1 G/DL (11.5-16.0); LYMPHOCYTES % (AUTO) 22 % (12-44); MEAN CORPUSCULAR HEMOGLOBIN 32 PG (25-34); MEAN CORPUSCULAR HGB CONC 35 G/DL (32-36); MEAN CORPUSCULAR VOLUME 94 FL (80-99); MONOCYTES # (AUTO) 0.5 X 10^3 (0.0-1.0); MONOCYTES % (AUTO) 11 % (0-12); NEUTROPHILS # (AUTO) 2.8 X 10^3 (1.8-7.8); NEUTROPHILS % (AUTO) 65 % (42-75); PLATELET COUNT 245 10^3/uL (130-400); RED BLOOD COUNT 3.73 10^6/uL (4.35-5.85); RED CELL DISTRIBUTION WIDTH 11.9 % (10.0-14.5); WHITE BLOOD COUNT 4.3 10^3/uL (4.3-11.0)
[2017-12-31 14:38] LABS: BUN/CREATININE RATIO 14; CALCIUM 9.3 MG/DL (8.5-10.1); CARBON DIOXIDE 25 MMOL/L (21-32); CHLORIDE 107 MMOL/L (98-107); GFR ESTIMATED > 60; GLUCOSE 106 MG/DL (70-105); POTASSIUM 4.2 MMOL/L (3.6-5.0); SODIUM 139 MMOL/L (135-145)
[~2018-01-07 14:24] MED LIST changes: +NS IV 500 ML (CANCER CENTER) 500 ML ONE; -ONDANSETRON 16 MG, DEXAMETHASONE 10 MG/NS 50 ML IVPB IV SCH; +diphenhydrAMINE 25 MG TAB (BENADRYL) CANCER CENTER PO ONE; -diphenhydrAMINE 50 MG/ML INJ (CANCER CENTER) IV PRN
[2018-01-07 14:44] LABS: BASOPHILS % (AUTO) 1 % (0-10); EOSINOPHILS # (AUTO) 0.1 10^3/uL (0.0-0.3); EOSINOPHILS % (AUTO) 1 % (0-10); HEMATOCRIT 35 % (35-52); HEMOGLOBIN 12.1 G/DL (11.5-16.0); LYMPHOCYTES # (AUTO) 0.9 X 10^3 (1.0-4.0); LYMPHOCYTES % (AUTO) 22 % (12-44); MEAN CORPUSCULAR HEMOGLOBIN 33 PG (25-34); MEAN CORPUSCULAR HGB CONC 35 G/DL (32-36); MEAN CORPUSCULAR VOLUME 94 FL (80-99); MEAN PLATELET VOLUME 9.9 FL (7.4-10.4); MONOCYTES # (AUTO) 0.4 X 10^3 (0.0-1.0); MONOCYTES % (AUTO) 11 % (0-12); NEUTROPHILS # (AUTO) 2.8 X 10^3 (1.8-7.8); NEUTROPHILS % (AUTO) 66 % (42-75); PLATELET COUNT 230 10^3/uL (130-400); RED BLOOD COUNT 3.69 10^6/uL (4.35-5.85); RED CELL DISTRIBUTION WIDTH 11.8 % (10.0-14.5); WHITE BLOOD COUNT 4.2 10^3/uL (4.3-11.0)
[2018-01-07 15:07] LABS: BUN/CREATININE RATIO 16; CALCIUM 8.8 MG/DL (8.5-10.1); CARBON DIOXIDE 23 MMOL/L (21-32); CHLORIDE 106 MMOL/L (98-107); GFR ESTIMATED > 60; GLUCOSE 117 MG/DL (70-105); POTASSIUM 4.1 MMOL/L (3.6-5.0); SODIUM 140 MMOL/L (135-145)
== END 2018-01-12 12:48 | disposition home or self-care (01) ==
LOC: ONC 14:24
PROVIDERS: ATTEND Internal Medicine Hematology & Oncology
DX: Z51.11 Encounter for antineoplastic chemotherapy (principal); C50.412 Malignant neoplasm of upper-outer quadrant of left female breast; Z85.850 Personal history of malignant neoplasm of thyroid; E89.0 Postprocedural hypothyroidism; Z17.0 Estrogen receptor positive status [ER+]; Z80.42 Family history of malignant neoplasm of prostate; Z80.8 Family history of malignant neoplasm of other organs or systems; Z79.899 Other long term (current) drug therapy
CPT/HCPCS: 36591; 80048; 85025; 96375; 96413

== ENCOUNTER → 2018-04-14 | Outpatient (RCR) | payer BC ==
[2018-01-14 11:14] LABS: BASOPHILS % (AUTO) 1 % (0-10); EOSINOPHILS # (AUTO) 0.1 10^3/uL (0.0-0.3); EOSINOPHILS % (AUTO) 1 % (0-10); HEMATOCRIT 38 % (35-52); HEMOGLOBIN 13.1 G/DL (11.5-16.0); LYMPHOCYTES % (AUTO) 22 % (12-44); MEAN CORPUSCULAR HEMOGLOBIN 32 PG (25-34); MEAN CORPUSCULAR HGB CONC 35 G/DL (32-36); MEAN CORPUSCULAR VOLUME 94 FL (80-99); MONOCYTES # (AUTO) 0.5 X 10^3 (0.0-1.0); MONOCYTES % (AUTO) 11 % (0-12); NEUTROPHILS % (AUTO) 66 % (42-75); PLATELET COUNT 244 10^3/uL (130-400); RED BLOOD COUNT 4.04 10^6/uL (4.35-5.85); RED CELL DISTRIBUTION WIDTH 11.9 % (10.0-14.5); WHITE BLOOD COUNT 4.6 10^3/uL (4.3-11.0)
[2018-01-14 11:33] LABS: ALANINE AMINOTRANSFERASE 41 U/L (0-55); ALBUMIN 4.3 GM/DL (3.2-4.5); ALKALINE PHOSPHATASE 52 U/L (40-136); BILIRUBIN,TOTAL 0.3 MG/DL (0.1-1.0); BUN/CREATININE RATIO 21; CALCIUM 9.5 MG/DL (8.5-10.1); CARBON DIOXIDE 23 MMOL/L (21-32); CHLORIDE 107 MMOL/L (98-107); CREATININE SERUM 0.72 MG/DL (0.60-1.30); GFR ESTIMATED > 60; GLUCOSE 113 MG/DL (70-105); POTASSIUM 4.8 MMOL/L (3.6-5.0); SODIUM 139 MMOL/L (135-145); TOTAL PROTEIN 7.2 GM/DL (6.4-8.2)
[2018-02-16 10:41] LABS: BASOPHILS % (AUTO) 0 % (0-10); EOSINOPHILS # (AUTO) 0.2 10^3/uL (0.0-0.3); EOSINOPHILS % (AUTO) 3 % (0-10); HEMATOCRIT 34 % (35-52); HEMOGLOBIN 11.3 G/DL (11.5-16.0); LYMPHOCYTES # (AUTO) 1.3 X 10^3 (1.0-4.0); LYMPHOCYTES % (AUTO) 26 % (12-44); MEAN CORPUSCULAR HEMOGLOBIN 31 PG (25-34); MEAN CORPUSCULAR HGB CONC 33 G/DL (32-36); MEAN CORPUSCULAR VOLUME 95 FL (80-99); MEAN PLATELET VOLUME 9.7 FL (7.4-10.4); MONOCYTES # (AUTO) 0.4 X 10^3 (0.0-1.0); MONOCYTES % (AUTO) 8 % (0-12); NEUTROPHILS # (AUTO) 3.1 X 10^3 (1.8-7.8); NEUTROPHILS % (AUTO) 63 % (42-75); PLATELET COUNT 246 10^3/uL (130-400); RED BLOOD COUNT 3.61 10^6/uL (4.35-5.85); RED CELL DISTRIBUTION WIDTH 12.3 % (10.0-14.5)
[2018-02-16 11:02] LABS: ALANINE AMINOTRANSFERASE 72 U/L (0-55); ALKALINE PHOSPHATASE 92 U/L (40-136); BILIRUBIN,TOTAL 0.3 MG/DL (0.1-1.0); BUN/CREATININE RATIO 25; CALCIUM 9.1 MG/DL (8.5-10.1); CARBON DIOXIDE 25 MMOL/L (21-32); CHLORIDE 108 MMOL/L (98-107); GFR ESTIMATED > 60; GLUCOSE 98 MG/DL (70-105); POTASSIUM 4.3 MMOL/L (3.6-5.0); SODIUM 139 MMOL/L (135-145); TOTAL PROTEIN 6.6 GM/DL (6.4-8.2)
[2018-02-26 11:05] LABS: ALBUMIN 4.1 GM/DL (3.2-4.5); BILIRUBIN,DIRECT 0.1 MG/DL (0.0-0.3); BILIRUBIN,INDIRECT 0.2 MG/DL; BILIRUBIN,TOTAL 0.3 MG/DL (0.1-1.0); TOTAL PROTEIN 6.5 GM/DL (6.4-8.2)
[2018-04-06 13:14] LABS: BASOPHILS % (AUTO) 0 % (0-10); EOSINOPHILS # (AUTO) 0.1 10^3/uL (0.0-0.3); EOSINOPHILS % (AUTO) 2 % (0-10); HEMATOCRIT 40 % (35-52); HEMOGLOBIN 13.7 G/DL (11.5-16.0); LYMPHOCYTES # (AUTO) 1.2 X 10^3 (1.0-4.0); LYMPHOCYTES % (AUTO) 19 % (12-44); MEAN CORPUSCULAR HEMOGLOBIN 31 PG (25-34); MEAN CORPUSCULAR HGB CONC 34 G/DL (32-36); MEAN CORPUSCULAR VOLUME 91 FL (80-99); MEAN PLATELET VOLUME 10.2 FL (7.4-10.4); MONOCYTES # (AUTO) 0.4 X 10^3 (0.0-1.0); MONOCYTES % (AUTO) 7 % (0-12); NEUTROPHILS # (AUTO) 4.4 X 10^3 (1.8-7.8); NEUTROPHILS % (AUTO) 72 % (42-75); PLATELET COUNT 234 10^3/uL (130-400); RED CELL DISTRIBUTION WIDTH 11.9 % (10.0-14.5); WHITE BLOOD COUNT 6.1 10^3/uL (4.3-11.0)
[2018-04-06 13:45] LABS: ALANINE AMINOTRANSFERASE 13 U/L (0-55); ALBUMIN 4.3 GM/DL (3.2-4.5); ALKALINE PHOSPHATASE 53 U/L (40-136); BILIRUBIN,TOTAL 0.5 MG/DL (0.1-1.0); BUN/CREATININE RATIO 19; CALCIUM 9.2 MG/DL (8.5-10.1); CARBON DIOXIDE 22 MMOL/L (21-32); CHLORIDE 109 MMOL/L (98-107); CREATININE SERUM 0.78 MG/DL (0.60-1.30); GFR ESTIMATED > 60; GLUCOSE 134 MG/DL (70-105); POTASSIUM 3.8 MMOL/L (3.6-5.0); SODIUM 142 MMOL/L (135-145); TOTAL PROTEIN 6.8 GM/DL (6.4-8.2)
[~2018-04-14] MED LIST changes: -FAMOTIDINE 20MG/2ML IV (CANCER CTR) IV SCH; -NS IV 1000 ML (CANCER CTR) IV SCH; -NS IV 500 ML (CANCER CENTER) 500 ML ONE; -ONDANSETRON MDV (CANCER CENTER 16 MG, DEXAMETHASONE PF INJ (CANCER C 10 MG in D5W 50 ML... IV SCH; -PACLITAXEL 140 MG in NORMAL SALINE (CANCER CENTER) 250 ML IV SCH; -diphenhydrAMINE 25 MG TAB (BENADRYL) CANCER CENTER PO ONE; -diphenhydrAMINE 25 MG TAB (BENADRYL) CANCER CENTER PO SCH
== END | disposition home or self-care (01) ==
LOC: ONC 01-14 10:50
PROVIDERS: ATTEND Internal Medicine Hematology & Oncology
DX: Z51.0 Encounter for antineoplastic radiation therapy (principal); C50.412 Malignant neoplasm of upper-outer quadrant of left female breast; Z85.850 Personal history of malignant neoplasm of thyroid; E89.0 Postprocedural hypothyroidism; Z17.0 Estrogen receptor positive status [ER+]; Z80.42 Family history of malignant neoplasm of prostate; Z80.8 Family history of malignant neoplasm of other organs or systems; Z79.899 Other long term (current) drug therapy
CPT/HCPCS: 36415; 77280; 77290; 77295; 77300; 77332; 77334; 77336; 77417; 77470; 80053; 80076; 84443; 85025; 99204; 99213

== ENCOUNTER → 2018-06-03 | Outpatient (CLI) | payer BC ==
--- NOTE | 2018-06-03 16:06 | Diagnostic Imaging Report ---
INDICATION: Screening for osteoporosis. EXAMINATION: DEXA scan. COMPARISON: This study was compared to the prior exam of 11/04/2013. FINDINGS: The bone mineral density of the hips and spine was measured. The T-score for the spine is -1.9. This is unchanged when compared with the prior exam. The T-score for the left hip is 0.3 and for the right hip is 0.2. On the prior exam, the respective T-scores were 0.8 and 0.7. IMPRESSION: 1. The bone mineral density of the spine is unchanged when compared with the prior exam. The T-score does indicate osteopenia. 2. There has been a slight decrease in the bone mineral density of each hip joint; however, the T-score value still remains within normal limits. Dictated by: Dictated on workstation # [id number]
== END ==
LOC: RAD 09:01
PROVIDERS: ATTEND Nurse Practitioner Adult Health
DX: C50.412 Malignant neoplasm of upper-outer quadrant of left female breast (principal); Z13.820 Encounter for screening for osteoporosis; M85.88 Other specified disorders of bone density and structure, other site
CPT/HCPCS: 77080

== ENCOUNTER → 2018-06-22 | Outpatient (CLI) | payer BC | LOC: CARD 10:40 | PROVIDERS: ATTEND Nurse Practitioner Adult Health | DX: C50.412 Malignant neoplasm of upper-outer quadrant of left female breast (principal); R06.09 Other forms of dyspnea; R53.83 Other fatigue | CPT/HCPCS: 93306 ==

== ENCOUNTER → 2018-07-28 | Outpatient (CLI) | payer BC ==
--- NOTE | 2018-07-28 16:41 | Diagnostic Imaging Report ---
INDICATION: Breast cancer, persistent cough. EXAMINATION: PA and lateral chest. FINDINGS: There are postsurgical changes from left mastectomy with bilateral breast augmentation. There is some increased opacity in the lateral aspect of the left apex that could be infiltrate. IMPRESSION: Asymmetric density near the left apex which could be pneumonia. There are no prior studies available for comparison. Dictated by: Dictated on workstation # [id number]
== END ==
LOC: RAD 14:40
PROVIDERS: ATTEND Internal Medicine Hematology & Oncology
DX: J98.4 Other disorders of lung (principal); Z85.3 Personal history of malignant neoplasm of breast
CPT/HCPCS: 71046

== ENCOUNTER 2018-08-02 14:58 | Outpatient (RCR) | payer BC | END 2018-08-22 | disposition home or self-care (01) | LOC: ONC 14:58 | PROVIDERS: ATTEND Internal Medicine Hematology & Oncology | DX: C50.412 Malignant neoplasm of upper-outer quadrant of left female breast (principal); Z85.850 Personal history of malignant neoplasm of thyroid; E89.0 Postprocedural hypothyroidism; Z17.0 Estrogen receptor positive status [ER+]; Z80.42 Family history of malignant neoplasm of prostate; Z80.8 Family history of malignant neoplasm of other organs or systems; Z79.899 Other long term (current) drug therapy | CPT/HCPCS: 99213 ==

== ENCOUNTER → 2018-08-10 | Outpatient (CLI) | payer BC ==
[~2018-08-10] MED LIST changes: +IOHEXOL 350 MG/ML 100 ML (OMNIPAQUE 350) VIAL IV ONE; +NS 250 ML (IVPB) BAG IV ONE
[2018-08-10 14:38] LABS: BUN/CREATININE RATIO 15; CREATININE SERUM 0.75 MG/DL (0.60-1.30); GFR ESTIMATED > 60
--- NOTE | 2018-08-10 17:32 | Diagnostic Imaging Report ---
PROCEDURE: CT chest with contrast only. TECHNIQUE: Multiple contiguous axial images were obtained through the chest after administration of intravenous contrast. INDICATION: Persistent cough. COMPARISON: August 11, 2017 FINDINGS: Postsurgical changes with surgical clips seen involving the thyroid bed. Bilateral mastectomies with implant reconstruction. Surgical clips are seen within the bilateral axillary regions. No axillary adenopathy within the [id number]. No significant mediastinal or hilar adenopathy. The heart is within normal limits in size. No aneurysmal dilatation of the thoracic aorta. No pericardial effusion. No pleural effusion. New consolidation and opacities are seen within the superior and lateral aspect of the left upper lobe. Most focal consolidation measures up to 2.8 x 2.4 cm. Additional new opacities are seen within the medial aspect of the left upper lung. Pleural-based interstitial opacities are identified within the anterior aspect of the left upper lobe and lingula. The lungs are otherwise clear. No pneumothorax. 2.5 cm hypodensity is seen within the left hepatic lobe. There is suggestion this is likely present on the prior PET/CT. However, this region appears slightly more prominent. The visualized upper abdomen is otherwise unremarkable. Scattered osseous degenerative changes without acute osseous abnormality. IMPRESSION: 1. New predominantly airspace opacities and consolidation within the left upper lobe. This may relate to a focus of pneumonia. Postradiation pneumonitis could appear similar. Neoplasm not totally excluded, particularly given nodularity. Recommend a followup CT of the chest in one month after appropriate therapy to ensure improvement/resolution. 2. Pleural-based interstitial opacities within the anterior aspect of the left upper lobe and lingula. This is new from the prior exam though felt to relate to post radiation effects. 3. 2.5 cm hypodensity within the left hepatic lobe. This appears to have likely been present on the prior PET/CT, though may be slightly increased in size since that time. Direct comparison is difficult secondary to differences in technique. Comparison to additional prior imaging would be beneficial. This is indeterminate based upon this examination, though does not appear to relate to a simple hepatic cyst. If further characterization is desired, a CT of the abdomen with and without contrast using hepatic mass protocol could be obtained. Additional postsurgical and chronic findings as above. Dictated by: Dictated on workstation # [id number]
== END ==
LOC: RAD 14:07
PROVIDERS: ATTEND Nurse Practitioner Family
DX: J18.1 Lobar pneumonia, unspecified organism (principal); J98.4 Other disorders of lung; K76.89 Other specified diseases of liver; Z98.890 Other specified postprocedural states; Z90.13 Acquired absence of bilateral breasts and nipples
CPT/HCPCS: 36415; 71260; 82565; 84520

== ENCOUNTER 2019-01-21 09:32 | Outpatient (RCR) | payer BC ==
[2018-11-02 15:11] LABS: BASOPHILS % (AUTO) 1 % (0-10); EOSINOPHILS # (AUTO) 0.1 10^3/uL (0.0-0.3); EOSINOPHILS % (AUTO) 2 % (0-10); HEMATOCRIT 38 % (35-52); HEMOGLOBIN 12.5 G/DL (11.5-16.0); LYMPHOCYTES % (AUTO) 25 % (12-44); MEAN CORPUSCULAR HEMOGLOBIN 31 PG (25-34); MEAN CORPUSCULAR HGB CONC 33 G/DL (32-36); MEAN CORPUSCULAR VOLUME 93 FL (80-99); MEAN PLATELET VOLUME 9.8 FL (7.4-10.4); MONOCYTES # (AUTO) 0.6 X 10^3 (0.0-1.0); MONOCYTES % (AUTO) 15 % (0-12); NEUTROPHILS # (AUTO) 2.2 X 10^3 (1.8-7.8); NEUTROPHILS % (AUTO) 57 % (42-75); PLATELET COUNT 221 10^3/uL (130-400); RED CELL DISTRIBUTION WIDTH 12.5 % (10.0-14.5); WHITE BLOOD COUNT 3.8 10^3/uL (4.3-11.0)
[2018-11-02 15:28] LABS: ALANINE AMINOTRANSFERASE 20 U/L (0-55); ALBUMIN 4.3 GM/DL (3.2-4.5); ALKALINE PHOSPHATASE 71 U/L (40-136); BILIRUBIN,TOTAL 0.3 MG/DL (0.1-1.0); BUN/CREATININE RATIO 14; CALCIUM 9.2 MG/DL (8.5-10.1); CARBON DIOXIDE 24 MMOL/L (21-32); CHLORIDE 107 MMOL/L (98-107); CREATININE SERUM 0.76 MG/DL (0.60-1.30); GFR ESTIMATED > 60; GLUCOSE 124 MG/DL (70-105); POTASSIUM 3.9 MMOL/L (3.6-5.0); SODIUM 139 MMOL/L (135-145); TOTAL PROTEIN 6.7 GM/DL (6.4-8.2)
[~2019-01-21 09:32] MED LIST changes: -IOHEXOL 350 MG/ML 100 ML (OMNIPAQUE 350) VIAL IV ONE; -NS 250 ML (IVPB) BAG IV ONE
[2019-01-21 09:54] LABS: BASOPHILS % (AUTO) 1 % (0-10); EOSINOPHILS # (AUTO) 0.1 10^3/uL (0.0-0.3); EOSINOPHILS % (AUTO) 3 % (0-10); HEMATOCRIT 40 % (35-52); HEMOGLOBIN 13.4 G/DL (11.5-16.0); LYMPHOCYTES % (AUTO) 23 % (12-44); MEAN CORPUSCULAR HEMOGLOBIN 31 PG (25-34); MEAN CORPUSCULAR HGB CONC 33 G/DL (32-36); MEAN CORPUSCULAR VOLUME 92 FL (80-99); MEAN PLATELET VOLUME 9.7 FL (7.4-10.4); MONOCYTES # (AUTO) 0.5 X 10^3 (0.0-1.0); MONOCYTES % (AUTO) 11 % (0-12); NEUTROPHILS # (AUTO) 2.8 X 10^3 (1.8-7.8); NEUTROPHILS % (AUTO) 63 % (42-75); PLATELET COUNT 199 10^3/uL (130-400); RED CELL DISTRIBUTION WIDTH 12.1 % (10.0-14.5); WHITE BLOOD COUNT 4.4 10^3/uL (4.3-11.0)
[2019-01-21 10:14] LABS: ALANINE AMINOTRANSFERASE 27 U/L (0-55); ALBUMIN 4.4 GM/DL (3.2-4.5); ALKALINE PHOSPHATASE 65 U/L (40-136); BILIRUBIN,TOTAL 0.6 MG/DL (0.1-1.0); BUN/CREATININE RATIO 20; CALCIUM 9.7 MG/DL (8.5-10.1); CARBON DIOXIDE 24 MMOL/L (21-32); CHLORIDE 108 MMOL/L (98-107); CREATININE SERUM 0.79 MG/DL (0.60-1.30); GFR ESTIMATED > 60; GLUCOSE 92 MG/DL (70-105); SODIUM 142 MMOL/L (135-145); TOTAL PROTEIN 6.9 GM/DL (6.4-8.2)
== END 2019-01-31 | disposition home or self-care (01) ==
LOC: ONC 09:32
PROVIDERS: ATTEND Internal Medicine Hematology & Oncology
DX: C50.412 Malignant neoplasm of upper-outer quadrant of left female breast (principal); Z85.850 Personal history of malignant neoplasm of thyroid; E89.0 Postprocedural hypothyroidism; M85.88 Other specified disorders of bone density and structure, other site; R91.8 Other nonspecific abnormal finding of lung field; K76.9 Liver disease, unspecified; Z17.0 Estrogen receptor positive status [ER+]; Z79.811 Long term (current) use of aromatase inhibitors; Z79.899 Other long term (current) drug therapy; Z92.21 Personal history of antineoplastic chemotherapy; Z92.3 Personal history of irradiation
CPT/HCPCS: 36415; 80053; 82306; 84443; 85025; 99213

== ENCOUNTER → 2019-01-27 | Outpatient (CLI) | payer BC ==
--- NOTE | 2019-01-27 17:58 | Diagnostic Imaging Report ---
INDICATION: Breast cancer as well as history of thyroid cancer. TECHNIQUE: CT chest and abdomen obtained. CT chest obtained with IV contrast. CT of the abdomen obtained pre and post IV contrast. COMPARISON: Comparison made with 07/31/2018. CT chest findings: There are bilateral breast implants with evidence of previous bilateral mastectomy. There are surgical clips in both axilla but no evidence of axillary adenopathy. There is no enlarged mediastinal or hilar node. There is no pleural or pericardial fluid. Lung parenchymal windows demonstrate some apparent parenchymal scarring in the left apex which appears decreased compared to the prior study but not entirely resolved. There is some subpleural scarring in the lingula as well. The right lung appears clear. CT abdomen findings: The liver shows multiple lesions which show peripheral enhancement and a pattern suspicious for hemangiomas. There is a lesion in the left lobe of the liver measuring about 1.9 cm. There is a lesion in the inferoanterior portion of the right lobe measuring about 2.7 cm. There is a lesion in the inferior portion of the right lobe more posteriorly measuring about 2.5 cm. The spleen, adrenals, and pancreas appear normal. Kidneys bilaterally appear unremarkable. There is no retroperitoneal mass or adenopathy. IMPRESSION: 1. CT chest demonstrates postop changes status post bilateral mastectomy with breast implants. There is no adenopathy or pleural fluid. Parenchymal changes in the left apex as well as in the lingula appear to be decreasing compared to the prior study and most likely represent residual changes from prior pneumonia or postradiation pneumonitis. There is no overt suspicious mass lesion in the chest. 2. There are three separate lesions in the liver, all of which have characteristics compatible with hemangiomas. There is no other significant abnormality. Consider followup, as clinically warranted. Dictated by: Dictated on workstation # [id number]
== END ==
LOC: RAD 13:31
PROVIDERS: ATTEND Internal Medicine Hematology & Oncology
DX: C50.412 Malignant neoplasm of upper-outer quadrant of left female breast (principal); K76.9 Liver disease, unspecified; R91.8 Other nonspecific abnormal finding of lung field; Z85.850 Personal history of malignant neoplasm of thyroid; Z90.13 Acquired absence of bilateral breasts and nipples
CPT/HCPCS: 71270; 74170

== ENCOUNTER 2019-04-27 09:23 | Outpatient (RCR) | payer BC ==
[2019-04-27 09:37] LABS: BASOPHILS % (AUTO) 1 % (0-10); EOSINOPHILS # (AUTO) 0.1 10^3/uL (0.0-0.3); EOSINOPHILS % (AUTO) 3 % (0-10); HEMATOCRIT 39 % (35-52); HEMOGLOBIN 13.3 G/DL (11.5-16.0); LYMPHOCYTES # (AUTO) 0.9 X 10^3 (1.0-4.0); LYMPHOCYTES % (AUTO) 22 % (12-44); MEAN CORPUSCULAR HEMOGLOBIN 31 PG (25-34); MEAN CORPUSCULAR HGB CONC 34 G/DL (32-36); MEAN CORPUSCULAR VOLUME 93 FL (80-99); MEAN PLATELET VOLUME 10.2 FL (7.4-10.4); MONOCYTES # (AUTO) 0.4 X 10^3 (0.0-1.0); MONOCYTES % (AUTO) 10 % (0-12); NEUTROPHILS # (AUTO) 2.7 X 10^3 (1.8-7.8); NEUTROPHILS % (AUTO) 65 % (42-75); PLATELET COUNT 214 10^3/uL (130-400); RED CELL DISTRIBUTION WIDTH 12.6 % (10.0-14.5); WHITE BLOOD COUNT 4.2 10^3/uL (4.3-11.0)
[2019-04-27 10:01] LABS: ALANINE AMINOTRANSFERASE 26 U/L (0-55); ALBUMIN 4.5 GM/DL (3.2-4.5); ALKALINE PHOSPHATASE 77 U/L (40-136); BILIRUBIN,TOTAL 0.6 MG/DL (0.1-1.0); BUN/CREATININE RATIO 18; CALCIUM 9.3 MG/DL (8.5-10.1); CARBON DIOXIDE 23 MMOL/L (21-32); CHLORIDE 108 MMOL/L (98-107); CREATININE SERUM 0.78 MG/DL (0.60-1.30); GFR ESTIMATED > 60; GLUCOSE 98 MG/DL (70-105); POTASSIUM 4.1 MMOL/L (3.6-5.0); SODIUM 139 MMOL/L (135-145); TOTAL PROTEIN 7.1 GM/DL (6.4-8.2)
== END 2019-07-26 | disposition home or self-care (01) ==
LOC: ONC 09:23
PROVIDERS: ATTEND Internal Medicine Hematology & Oncology
DX: C50.412 Malignant neoplasm of upper-outer quadrant of left female breast (principal); Z85.850 Personal history of malignant neoplasm of thyroid; E89.0 Postprocedural hypothyroidism; M85.88 Other specified disorders of bone density and structure, other site; R91.8 Other nonspecific abnormal finding of lung field; K76.9 Liver disease, unspecified; Z17.0 Estrogen receptor positive status [ER+]; Z79.811 Long term (current) use of aromatase inhibitors; Z79.899 Other long term (current) drug therapy; Z92.21 Personal history of antineoplastic chemotherapy; Z92.3 Personal history of irradiation; Z80.42 Family history of malignant neoplasm of prostate
CPT/HCPCS: 36415; 80053; 84443; 85025; 99213

== ENCOUNTER → 2019-04-28 | Outpatient (CLI) | payer BC ==
[~2019-04-28] MED LIST changes: +CATHETER FLUSH 10 ML SYR IV PRN; +HOLD METFORMIN - RECEIVED CONTRAST 20 ML VIAL IV SCH; +IOHEXOL 350 MG/ML 100 ML (OMNIPAQUE 350) VIAL IV ONE; +NS 100 ML (IVPB) BAG IV ONE
--- NOTE | 2019-04-28 13:29 | Diagnostic Imaging Report ---
PROCEDURE: CT chest and abdomen with contrast. TECHNIQUE: Multiple contiguous axial images were obtained through the chest and abdomen after the administration of intravenous contrast. Auto Exposure Controls were utilized during the CT exam to meet ALARA standards for radiation dose reduction. INDICATION: Breast carcinoma with metastases to lungs and liver, followup. COMPARISON: Correlation is made with prior study from 01/27/2019. CT CHEST: Bilateral breast implants are noted. There are surgical clips in both axillae. No axillary lymphadenopathy is detected. No internal mammary lymphadenopathy is detected. No mediastinal or hilar lymphadenopathy is detected. No pericardial or pleural fluid is identified. Parenchymal evaluation again demonstrates some scarring in the left apex. Minimal scarring in the lingula is also seen. No parenchymal mass is identified. IMPRESSION: Stable CT chest when compared with exam from 01/27/2019. There is no evidence of thoracic lymphadenopathy or pulmonary metastatic disease. CT ABDOMEN: Previously noted low-density lesions within the liver are again noted and appear very similar to prior exam. These are somewhat ill defined and difficult to measure, but no change has occurred. No new liver lesion is seen. Gallbladder is contracted. There is no biliary ductal dilatation. Pancreas and spleen are unremarkable. No adrenal mass is detected. Kidneys are unremarkable. Aorta is nonaneurysmal. There is no central retroperitoneal or mesenteric lymphadenopathy. Bony structures are unremarkable. IMPRESSION: Stable CT abdomen when compared with exam from 01/27/2019. Three separate liver lesions are stable and again may represent hemangiomas, but continued followup is recommended. No new abnormality is identified. Dictated by: Dictated on workstation # [id number]
--- NOTE | 2019-04-28 20:54 | Diagnostic Imaging Report ---
INDICATION: Breast carcinoma. Patient was administered 27.1 mCi technetium 99m MDP intravenously, and whole body imaging was performed after 3 hour delay. No prior studies are available for comparison. Normal uptake of activity by the axial and appendicular skeleton is seen. There is uptake by both kidneys with excretion to the urinary bladder. No abnormal foci of tracer accumulation is seen to suggest osseous metastatic disease. IMPRESSION: No scintigraphic evidence of osseous metastatic disease. Dictated by: Dictated on workstation # [id number]
== END ==
LOC: CARD 10:35
PROVIDERS: ATTEND Internal Medicine Hematology & Oncology
DX: C50.412 Malignant neoplasm of upper-outer quadrant of left female breast (principal); J70.0 Acute pulmonary manifestations due to radiation; M89.8X9 Other specified disorders of bone, unspecified site; R93.89 Abnormal findings on diagnostic imaging of other specified body structures; K76.9 Liver disease, unspecified
CPT/HCPCS: 71260; 74160; 78306

== ENCOUNTER 2019-08-02 12:46 | Outpatient (RCR) | payer BC ==
[~2019-08-02 12:46] MED LIST changes: -CATHETER FLUSH 10 ML SYR IV PRN; -HOLD METFORMIN - RECEIVED CONTRAST 20 ML VIAL IV SCH; -IOHEXOL 350 MG/ML 100 ML (OMNIPAQUE 350) VIAL IV ONE; -NS 100 ML (IVPB) BAG IV ONE
[2019-08-02 13:08] LABS: BASOPHILS % (AUTO) 0 % (0-10); EOSINOPHILS # (AUTO) 0.1 10^3/uL (0.0-0.3); EOSINOPHILS % (AUTO) 2 % (0-10); HEMATOCRIT 40 % (35-52); HEMOGLOBIN 13.1 G/DL (11.5-16.0); LYMPHOCYTES # (AUTO) 1.1 X 10^3 (1.0-4.0); LYMPHOCYTES % (AUTO) 23 % (12-44); MEAN CORPUSCULAR HEMOGLOBIN 31 PG (25-34); MEAN CORPUSCULAR HGB CONC 33 G/DL (32-36); MEAN CORPUSCULAR VOLUME 94 FL (80-99); MONOCYTES # (AUTO) 0.4 X 10^3 (0.0-1.0); MONOCYTES % (AUTO) 9 % (0-12); NEUTROPHILS # (AUTO) 3.3 X 10^3 (1.8-7.8); NEUTROPHILS % (AUTO) 67 % (42-75); PLATELET COUNT 222 10^3/uL (130-400); RED CELL DISTRIBUTION WIDTH 12.3 % (10.0-14.5); WHITE BLOOD COUNT 4.9 10^3/uL (4.3-11.0)
[2019-08-02 13:28] LABS: ALANINE AMINOTRANSFERASE 33 U/L (0-55); ALBUMIN 4.4 GM/DL (3.2-4.5); ALKALINE PHOSPHATASE 76 U/L (40-136); BILIRUBIN,TOTAL 0.5 MG/DL (0.1-1.0); BUN/CREATININE RATIO 19; CALCIUM 9.3 MG/DL (8.5-10.1); CARBON DIOXIDE 27 MMOL/L (21-32); CHLORIDE 103 MMOL/L (98-107); CREATININE SERUM 0.85 MG/DL (0.60-1.30); GFR ESTIMATED > 60; GLUCOSE 96 MG/DL (70-105); POTASSIUM 4.2 MMOL/L (3.6-5.0); SODIUM 138 MMOL/L (135-145)
[2019-09-06] MEDS ORDERED: LEVO137T2 PO (12:44)
[2019-09-06] MEDS ORDERED: MV-M1TAB38 PO (12:44)
[2019-09-06] MEDS ORDERED: EXEM25TA4 PO (12:44)
== END 2019-10-31 | disposition home or self-care (01) ==
LOC: ONC 12:46
PROVIDERS: ATTEND Internal Medicine Hematology & Oncology
DX: C50.412 Malignant neoplasm of upper-outer quadrant of left female breast (principal); Z85.850 Personal history of malignant neoplasm of thyroid; E89.0 Postprocedural hypothyroidism; M85.88 Other specified disorders of bone density and structure, other site; R91.8 Other nonspecific abnormal finding of lung field; K76.9 Liver disease, unspecified; Z17.0 Estrogen receptor positive status [ER+]; Z79.811 Long term (current) use of aromatase inhibitors; Z79.899 Other long term (current) drug therapy; Z92.21 Personal history of antineoplastic chemotherapy; Z92.3 Personal history of irradiation; Z80.42 Family history of malignant neoplasm of prostate
CPT/HCPCS: 36415; 80053; 82306; 84443; 85025; 99213

== ENCOUNTER 2019-09-06 05:40 | Outpatient (CLI) | payer BC ==
[~2019-09-06] VITALS: Ht 175 cm; Wt 73.8 kg
[2019-09-06] MEDS ORDERED: MV-M1TAB38 PO (12:44)
[2019-09-06] MEDS ORDERED: LEVO137T2 PO (12:44)
[2019-09-06] MEDS ORDERED: EXEM25TA4 PO (12:44)
== END 2019-09-06 12:52 | disposition home or self-care (01) ==
LOC: PREOP 05:40
PROVIDERS: ATTEND Specialist
DX: Z01.818 Encounter for other preprocedural examination (principal)

== ENCOUNTER 2019-09-09 06:00 | Day surgery (SDC) | payer BC ==
[~2019-09-09] VITALS: Wt 73.8 kg
[~2019-09-09 06:00] MED LIST changes: +EXEM25TA4 PO; +LEVO137T2 PO; +MV-M1TAB38 PO
[2019-09-09 06:05] VITALS: BP 124/81
[2019-09-09] MEDS ORDERED: POVIDONE (BETADINE) OPHTH SOLN 5% 30 ML OP ONE (06:15)
[2019-09-09] MEDS ORDERED: TIMOLOL MALEATE 0.5% 5 ML (TIMOPTIC) BTL OU PRN (06:15)
[2019-09-09] MEDS ORDERED: MOXIFLOXACIN OPHTH SOLN 5 MG/ML 0.3 ML SYRINGE OP ONE (06:15)
[2019-09-09] MEDS ORDERED: LIDOCAINE PF 1% 2 ML AMP IR PRN (06:15)
[2019-09-09] MEDS: TETRACAINE 0.5% OPHTH SOLN 4 ML BTL (SINGLE DOSE ONLY) OU PRN ×4 (06:19→06:42)
[2019-09-09] MEDS: PHENYLEPHRINE 10% OPHTH (NEO-SYN) 5 ML BTL OU SCH ×3 (06:28→06:42)
[2019-09-09] MEDS: CYCLOPENTOLATE 1% (CYCLOGYL) 2 ML DROPS OP SCH ×3 (06:28→06:42)
[2019-09-09] MEDS ORDERED: MIDAZOLAM 2 MG/2 ML (VERSED) VIAL ONE (06:56)
--- NOTE | 2019-09-09 07:06 | Ophthalmologist Pre-Op Note ---
Pre-Operative Progress Note H&P Reviewed The H&P was reviewed, patient examined and no changes noted. Date H&P Reviewed: Sep 09, 2019 Time H&P Reviewed: 07:05 Pre-Op Dx Cataract, Left Eye JORDON VELAZQUEZ MD Sep 09, 2019 07:06
--- NOTE | 2019-09-09 07:32 | Ophthalmology Operative Report ---
Cataract removal/placement IOL PREOPERATIVE DIAGNOSIS: Cataract Left Eye POSTOPERATIVE DIAGNOSIS: Cataract Left Eye PROCEDURE: Cataract removal and placement of posterior chamber implant, left eye SURGEON: Brian Velazquez ANESTHESIA: Topical with sedation COMPLICATIONS: None ESTIMATED BLOOD LOSS: Minimal DESCRIPTION OF PROCEDURE: After proper informed consent was obtained, the patient, a 59 female, was taken to the Operating Room and the left eye was anesthetized with tetracaine. The left eye was then prepped and draped in the usual manner. A wire lid speculum was placed. A paracentesis was made at the left hand position. Preservative free lidocaine was injected into the anterior chamber followed by viscoelastic. A clear corneal incision was made in the temporal position. A capsulorrhexis was preformed and the central nuclear and cortical material were removed. The posterior capsule was polished and an Ian [id number] 11.5 was placed into the capsular bag. The residual viscoelastic was aspirated and balanced saline solution was injected into the anterior chamber. Moxifloxacin was injected into the anterior chamber. The wound was checked and found to be water tight. The patient tolerated the procedure well without complications. BRIAN VELAZQUEZ MD Sep 09, 2019 07:32
[2019-09-09 07:40] VITALS: BP 128/72
--- NOTE | 2019-09-09 07:45 | Anesthesia-General Post-Op ---
MAC Patient Condition Mental Status/LOC: Same as Preop Cardiovascular: Satisfactory Nausea/Vomiting: Absent Respiratory: Satisfactory Pain: Controlled Complications: Absent Post Op Complications Complications None Follow Up Care/Instructions Patient Instructions None needed. Anesthesiology Discharge Order Discharge Order Patient is doing well, no complaints, stable vital signs, no apparent adverse anesthesia problems. No complications reported per nursing. MEG MURRY CRNA Sep 09, 2019 07:45
== END 2019-09-09 07:40 | disposition home or self-care (01) ==
LOC: SDC 06:00
PROVIDERS: ATTEND Specialist
DX: H25.12 Age-related nuclear cataract, left eye (principal); E03.9 Hypothyroidism, unspecified; M19.90 Unspecified osteoarthritis, unspecified site; Z90.710 Acquired absence of both cervix and uterus; Z88.8 Allergy status to other drugs, medicaments and biological substances; Z85.840 Personal history of malignant neoplasm of eye; Z79.899 Other long term (current) drug therapy; Z85.850 Personal history of malignant neoplasm of thyroid; Z85.79 Personal history of other malignant neoplasms of lymphoid, hematopoietic and related tissues; Z83.79 Family history of other diseases of the digestive system; Z83.518 Family history of other specified eye disorder; Z83.3 Family history of diabetes mellitus; Z80.0 Family history of malignant neoplasm of digestive organs; Z80.1 Family history of malignant neoplasm of trachea, bronchus and lung; Z80.42 Family history of malignant neoplasm of prostate; Z80.6 Family history of leukemia

== ENCOUNTER 2019-09-21 05:52 | Outpatient (CLI) | payer BC ==
[~2019-09-21] VITALS: Ht 175 cm; Wt 73.8 kg
== END 2019-09-21 10:24 | disposition home or self-care (01) ==
LOC: PREOP 05:52
PROVIDERS: ATTEND Specialist
DX: Z01.818 Encounter for other preprocedural examination (principal)

== ENCOUNTER 2019-09-23 06:00 | Day surgery (SDC) | payer BC ==
[~2019-09-23] VITALS: Ht 175 cm; Wt 73.8 kg
[2019-09-23 06:10] VITALS: BP 120/81
[2019-09-23] MEDS: TETRACAINE 0.5% OPHTH SOLN 4 ML BTL (SINGLE DOSE ONLY) OU PRN ×4 (06:15→06:38)
[2019-09-23] MEDS ORDERED: POVIDONE (BETADINE) OPHTH SOLN 5% 30 ML OP ONE (06:15)
[2019-09-23] MEDS ORDERED: LIDOCAINE PF 1% 2 ML AMP IR PRN (06:15)
[2019-09-23] MEDS ORDERED: TIMOLOL MALEATE 0.5% 5 ML (TIMOPTIC) BTL OU PRN (06:15)
[2019-09-23] MEDS ORDERED: MOXIFLOXACIN OPHTH SOLN 5 MG/ML 0.3 ML SYRINGE OP ONE (06:15)
[2019-09-23] MEDS: PHENYLEPHRINE 10% OPHTH (NEO-SYN) 5 ML BTL OU SCH ×3 (06:25→06:38)
[2019-09-23] MEDS: CYCLOPENTOLATE 1% (CYCLOGYL) 2 ML DROPS OP SCH ×3 (06:25→06:38)
--- NOTE | 2019-09-23 06:52 | Ophthalmologist Pre-Op Note ---
Pre-Operative Progress Note H&P Reviewed The H&P was reviewed, patient examined and no changes noted. Date H&P Reviewed: Sep 23, 2019 Time H&P Reviewed: 06:52 Pre-Op Dx Cataract, Right Eye JORDON VELAZQUEZ MD Sep 23, 2019 06:52 POS
[2019-09-23] MEDS ORDERED: MIDAZOLAM 2 MG/2 ML (VERSED) VIAL ONE (07:05)
--- NOTE | 2019-09-23 07:21 | Ophthalmology Operative Report ---
Cataract removal/placement IOL PREOPERATIVE DIAGNOSIS: Cataract Right Eye POSTOPERATIVE DIAGNOSIS: Cataract Right Eye PROCEDURE: Cataract removal and placement of posterior chamber implant, right eye SURGEON: Brian Velazquez ANESTHESIA: Topical with sedation COMPLICATIONS: None ESTIMATED BLOOD LOSS: Minimal DESCRIPTION OF PROCEDURE: After proper informed consent was obtained, the patient, a 59 female, was taken to the Operating Room and the right eye was anesthetized with tetracaine. The right eye was then prepped and draped in the usual manner. A wire lid speculum was placed. A paracentesis was made at the left hand position. Preservative free lidocaine was injected into the anterior chamber followed by viscoelastic. A clear corneal incision was made in the temporal position. A capsulorrhexis was preformed and the central nuclear and cortical material were removed. The posterior capsule was polished and Ian 9.0 [id number] IOL was placed into the capsular bag. The residual viscoelastic was aspirated and balanced saline solution was injected into the anterior chamber. Moxifloxacin was injected into the anterior chamber. The wound was checked and found to be water tight. The patient tolerated the procedure well without complications. BRIAN VELAZQUEZ MD Sep 23, 2019 07:21 POS
[2019-09-23 07:30] VITALS: BP 113/80
--- NOTE | 2019-09-23 12:37 | Anesthesia-General Post-Op ---
MAC Patient Condition Mental Status/LOC: Same as Preop Cardiovascular: Satisfactory Nausea/Vomiting: Absent Respiratory: Satisfactory Pain: Controlled Complications: Absent Post Op Complications Complications None Follow Up Care/Instructions Patient Instructions None needed. Anesthesiology Discharge Order Discharge Order Patient is doing well, no complaints, stable vital signs, no apparent adverse anesthesia problems. No complications reported per nursing. LINH CORTES CRNA Sep 23, 2019 12:37 POS
--- OUTSIDE RECORDS SUMMARY | 2019-10-16 20:13 | XMS REPORT | Encounter Summary ---
Author Author [facility] POS Organization [facility] SP Address Unknown SP Phone Unavailable SP Care Team Providers Care Clothing Pattern Preparer Name Role Phone POS Destiny Erazo MD PCP SP Reason for Visit * Reason Comments POS Other surgery scheduling SP Encounter Details Care Team Description POS Date Type Department SP SP Hermelindo Stanton MD [address], [place] [phone] Other (surgery scheduling ) SP 09/14/2019 Telephone [facility] SP [address] [place] [phone] SP [phone] SP Social History Date POS Tobacco Use Types Packs/Day Years Used SP SP Never Smoker SP Smokeless Tobacco: Never SP Used SP Drinks/Week oz/Week Comments POS Alcohol Use SP SP 1-2 Glasses of wine 1.0 - 2.0 once a week SP Yes SP Sex Assigned at Date Recorded SP Not on file SP Industry POS Job Start Date Occupation SP Not on file SP Not on file Not on file SP Travel End POS Travel History Travel Start SP No recent travel history available. SP documented as of this encounter Functional Status Date of Assessment POS Functional Status Response SP 09/07/2019 SP Does the patient have a hearing impairment: No SP 09/07/2019 SP Does the patient have a visual impairment: Yes SP 09/07/2019 SP Does the patient have impaired ambulation: No SP 09/07/2019 SP Does the patient have an activity of daily living No SP (ADL) impairment: SP 09/07/2019 SP Does the patient have an instrumental activity of No SP daily living (IADL) impairment: SP Date of Assessment POS Cognitive Status Response SP 09/07/2019 SP Does the patient have a cognitive impairment: No SP documented as of this encounter Miscellaneous Notes * Telephone Encounter - Leatha Guzman - 09/14/2019 3:49 PM CDT Called and lvm for pt regarding surgery scheduling documented in this encounter Plan of Treatment Care Team Description POS Date Type Specialty SP SP Hermelindo Stanton MD [address] [place] [id number] 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
--- OUTSIDE RECORDS SUMMARY | 2019-10-16 20:13 | XMS REPORT | Clinical Summary ---
Author Author [facility] POS Organization [facility] SP Address Unknown SP Phone Unavailable SP Care Team Providers Care Laser Engineer Name Role Phone POS Destiny Erazo MD PCP SP Source Comments Some departments are not documenting in the electronic medical record. If you d o not see the information that you expected, contact Release of Information in [facility] [employer] Information Management department at [phone] for further assistan ce in locating additional records.[facility] Allergies Comments POS Active Allergy Reactions Severity Noted Date SP SP Nickel RASH Medium 12/04/2017 SP SP Family history Sulfasalazine SEE COMMENTS Low SP Medications End Date Status POS Medication Sig Dispensed Refills Start SP Date SP Active SP cholecalciferol (VITAMIN Take 5,000 0 SP D-3) 1,000 units tablet Units by SP mouth every 7 SP days. SP Active SP lutein/zeaxanthin Take 1 tablet 0 SP (OCUVITE LUTEIN 25 PO) by mouth SP daily. SP Active SP exemestane (AROMASIN) 25 Take 25 mg by 0 SP mg tab mouth daily. SP Take after a SP meal. 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 Benavidez is a fema le who [facility]2017 at age 57 for evaluation of left breast cancer. SP Ms. Benavidez palpated a lump in the summer of 2016. When it increased in size SP she went for imaging. There was a new l eft breast lump on mammogram and an SP indeterminate group of calcification in the right breast. Left breast SP sono-guided biopsy 08/04/17 ([place], [place]) revealed grade invasive lobular SP carcinoma. Right stereotactic biopsy wa s not performed. Right stereotactic SP biopsy 12/04/17 () revealed fibrocysti c changes. Ms. Benavidez underwent SP bilateral skin sparing mastectomy/left SLNB/Vanessa on 01/26/18. Final pathology SP of the right breast revealed focal Atyp ical ductal hyperplasia and Atypical SP lobular hyperplasia. She completed rad iation therapy with Dr. Bennett in [place], [place]. She started Femara in . She is planning revision SP surgery with Dr. Stanton in 10/2018. SP PATHOLOGY: SP Tumor: SP Size/Extent of Tumor Bed: 3.1 x2.3 x 1.7 cm SP Size/Extent of Residual Invasive Tumor: 3.1 x 2.3 x 1.7 cm SP Overall Residual Cellularity of the Sylvia or Bed: 5% SP Margins Free From Tumor: Yes SP ER: positive SP NV: positive SP Her 2: negative SP Grade: 2 SP Lymph Nodes: 1/7 SLNs, 4.5 mm met SP LVSI: no SP Extranodal extension: no SP BREAST IMAGING: SP Mammogram: SP -- Bilateral diagnostic mammogram 7 ([place], [place]) revealed SP heterogeneously dense breast tissue. In the left breast in the area of the SP marker there was a prominent region of architectural distortion. This SP finding was worrisome for malignancy an d ultrasound was recommended. There SP was a small rounded density in the retr oareolar area of the right breast. SP The tomographic images suggest superimp osition, but ultrasound is SP recommended. At 12:00 there was a group of microcalcifications that had SP developed in the interval since prior s tudy. They were indeterminate on SP magnification views. Stereotactic biops y was recommended. SP -- Bilateral diagnostic mammogram 8 ([facility]) revealed heterogeneously SP dense breast tissue. Right breast: A ci rcumscribed nodule was seen in the SP far medial right breast near 2:00 and w ill be further evaluated with SP ultrasound. In addition, multiple calci fications were seen. At 1:00, SP anteriordepth, the most suspicious clus ter was identified measuring at SP least 13 mm in diameter. Stereotactic b iopsy of this cluster was SP recommended. Additional calcifications were seen on the CC magnification SP view laterally, which I would follow, u nless biopsy shows atypia or breast SP cancer. Left breast: The known neoplasm was seen in the upper outer SP quadrant, posterior depth, with associa dewayne calcifications, and a marking SP clip on the lateral margin. No addition al suspicious findings were seen. SP Ultrasound: SP -- Bilateral breast ultrasound 07/30/17 ( [place], [place]) revealed in the left SP breast in the region of mammographic ab normality there was a poorly defined SP shadowing measuring 2.1 x 1.8 x 2 cm. T he mammogram also identified a small SP rounded area of slightly increased dens ity in the retroareolar right SP breast. There were no discrete ultrasou nd abnormalities. SP -- Left breast ultrasound 10/22/17 ([place], [place]) revealed a heterogeneous SP hypoechoic mass measuring 2 x 1.4 x 1.9 cm. This was associated with SP significant shadowing. Area of increase d vascularity anterior to this was SP seen. This mass is at 1:30, 10 cm FTN. This previously measured 2.1 x 1.7 x SP 2.0 cm. The surrounding area revealed n o additional nodules. SP -- Bilateral breast ultrasound 11/27/17 ( [facility]) revealed Right breast: In the SP area of mammographic abnormality, a mix ed echogenic nodule is seen at 2:00, SP 10 cm from the nipple measuring 9 x 5 m m which correlated with the SP mammogram. I reviewed this area of conc chuckie on MRI scan, given the absence SP of enhancement on the MRI scan, and a r elatively benign appearance on the SP mammography and ultrasound, I would not suggest biopsy, but rather routine SP follow-up. Left breast: The known neopl asm was seen at 2:00, 9 cm from the SP nipple, measuring 2.9 x 1.1 x 2.1 cm, s maller than appreciated on outside SP MRI study. Evaluation of the axilla pallavi wed no adenopathy. SP MRI: SP -- Bilateral breast MRI 08/14/17 ([place], [place]) revealed no suspicious mass SP or non mass enhancement in the right br east. In the left breast at 3:00 SP there was an irregular region of nonmas s enhancement and distortion. This SP measured 2.6 x 2.4 cm. A similar appear ing spicule of enhancement was SP identified extending medially from this region of nonmass enhancement and SP terminated in the region central to the nipple. Including the spicule, the SP overall dimension of the nonmass enhanc ement was 3.5 cm. An additional SP small focus of similar appearing enhanc ement was identified 1 cm anterior SP to the region of nonmass enhancement. T he total measurement of both areas SP was 5.2 cm. No additional suspicious ma ss or nonmass enhancement in the SP left breast. No axillary adenopathy. SP Other: SP -- PET/CT 08/11/17 ([place], [place]) revea led no evidence of metastasis. SP REPRODUCTIVE HEALTH: SP Age at first Menarche: 15 SP Age at First Live : N/A SP Age at Menopause: Hysterectomy at 43, HRT from [age] SP : 0 SP PROCEDURE: Bilateral skin sparing maste ctomy/left SLNB/immediate implants, SP 01/26/18 ([facility]) SP PERTINENT PMH: Personal history of thy roid cancer SP FAMILY HISTORY: Brother with prostate c ancer, sister with ocular melanoma SP PHYSICAL EXAM on PRESENTATION: Right - No palpable breast masses. No skin, SP nipple, or areolar change. Left - Thick ening at 2:00 without discrete SP palpable mass. No skin or nipple change s. No supraclavicular or axillary SP adenopathy. SP MEDICAL ONCOLOGY: Dr. Jimenez NEOADJUV ANT THERAPY: AC + Taxol completed SP 01/07/18 PRESENT THERAPY: Femara starte d 05/2018; Aromasin started 2017 SP REFERRED BY: Dr. Jimenez SP Encounters Care Team Description POS Date Type Specialty SP Hermelindo Tapia MD Malignant neoplasm of upper-outer quadra nt of left SP in female, estrogen receptor positive (HCC) (Primary Dx); Encounter for breast reconstruction following mastectomy 10/13/2019 Prep for Case Plastic Surgery SP Hermelindo aTpia MD Other (surgery scheduling ) SP 09/14/2019 Telephone Plastic Surgery SP Hermelindo Tapia MD Other (surgery scheduling ) SP 09/12/2019 Telephone Plastic Surgery SP Hermelindo Tapia MD Deformity and disproportion of reconstru cted breast SP Dx); Encounter for breast reconstruction following mastectomy 09/07/2019 Office Visit Plastic Surgery SP Leona De Jesus PA-C SP 09/07/2019 Hospital Radiology SP Encounter SP Leona De Jesus PA-C SP 09/07/2019 Hospital Radiology SP Encounter SP Leona De Jesus PA-C Results SP 09/07/2019 Telephone Oncology SP Leona De Jesus PA-C Advice Only SP 08/12/2019 Telephone Oncology SP Leona De Jesus PA-C Thickening of skin of breast (Primary Dx ) SP 07/28/2019 Office Visit Oncology SP Leona De Jesus PA-C At risk for lymphedema (Primary Dx) SP 07/28/2019 Nurse Only Oncology SP from Last 3 Months Family History Medical History Relation Name Comments POS Arthritis-rheumatoid Brother SP Cancer Brother SP Cancer-Prostate Brother SP Arthritis-osteo Maternal Aunt SP Diabetes Maternal Aunt SP Arthritis-osteo Maternal SP Grandmother SP Diabetes Maternal SP Grandmother SP Diabetes Mother SP Arthritis-osteo Paternal SP Grandmother SP Arthritis-rheumatoid Paternal SP Grandmother SP Diabetes Paternal SP Grandmother SP Arthritis-osteo Sister SP Cancer Sister leukemia SP Cancer-Colon Sister SP Stroke Sister SP Relation Name Status Comments SP Brother Alive SP Maternal Aunt SP Maternal Grandmother SP Mother SP Paternal Grandmother SP Sister SP Social History Date POS Tobacco Use [...] SP No recent travel history available. SP Last Filed Vital Signs Reading Time Taken Comments POS Vital Sign SP 126/78 09/07/2019 10:31 AM CDT SP Blood Pressure SP 80 09/07/2019 10:31 AM CDT SP Pulse SP 36.9 C (98.4 F) 09/07/2019 10:31 AM CDT SP Temperature SP 18 07/28/2019 3:25 PM CDT SP Respiratory Rate SP 100% 09/07/2019 10:31 AM CDT SP Oxygen Saturation SP - - SP Inhaled Oxygen SP Concentration SP 75.6 kg (166 lb 9.6 oz) 09/07/2019 10:31 AM CDT SP Weight SP 172.7 cm (5' 8") 09/07/2019 10:31 AM CDT SP Height SP 25.33 09/07/2019 10:31 AM CDT SP Body Mass Index SP Plan of Treatment Care Team Description POS Date Type Specialty SP SP Hermelindo Stanton MD [address] [place] [id number] Malignant neoplasm of upper-outer quadra nt of left breast in SP estrogen receptor positive (HCC) 11/14/2019 Hospital SP Encounter SP Health Maintenance Due Date Last Done Comments SP HEPATITIS C SCREENING 1958 SP HIV SCREENING 1973 SP DTAP/TDAP VACCINES (1 - 1976 SP Tdap) SP PHYSICAL (COMPREHENSIVE) 1976 SP EXAM SP CERVICAL CANCER SCREENING 1988 SP COLORECTAL CANCER 2008 SP SCREENING SP SHINGLES RECOMBINANT 2008 SP VACCINE (1 of 2) SP BREAST CANCER SCREENING 11/27/2018 11/27/2017 SP INFLUENZA VACCINE 06/23/2019 SP Implants Device Identifier Shelf Expiration Date Model / Serial / L ot POS Implanted Type Area Manufactur SP er SP 01/05/2018 [id number] / SP / [id number] SP [employer] Clip-12/04/2017 Clip SP Implanted: Qty: 1 on 12/04/2017 by Fredrick Schulz MD 12/23/2019 [id number] / SPN/A / [id number] Matrix Tiss Aldrm Prfr Duo .4-2.4mm Left: Chest L IFECELL SP Thk [id number] Allograft - Sn/A Wall SP Implanted: Qty: 1 on 01/26/2018 by Hermelindo Tapia MD at [facility] 07/19/2022 [id number] / SP [id number] / SP [id number] SP Breast Implant Left: Chest MENTOR SP Implanted: Qty: 1 on 01/26/2018 by [facility] 12/23/2019 [id number] / SPN/A / [id number] Matrix Tiss Aldrm Prfr Duo .4-2.4mm Right: Chest L IFECELL SP Thk [id number] Allograft - Sn/A Wall SP Implanted: Qty: 1 on 01/26/2018 by Hermelindo Tapia MD at [facility] 07/19/2022 [id number] / SP [id number] / SP [id number] SP Breast Implant Right: Chest MENTOR SP Implanted: Qty: 1 on 01/26/2018 by [facility] Hermelindo Tapia MD at [facility] Procedures Comments POS Procedure Name Priority Date/Time Associated Diag nosis SP US BREAST TARGET LT Routine 09/07/2019 Thickening of skin of 9:17 AM CDT breast SP from Last 3 Months Results * US BREAST TARGET LT (09/07/2019 9:17 AM CDT) Specimen POS Impressions Performed At ACR BI-RADS Assessments: BIRAD 1-Negative [facility] R ESULTS SP RECOMMENDATION: SP No screening mammo. SP Narrative Performed At left chest wall thickening at 8:00 and 4:00 [facility] R ESULTS SP [id number] US BREAST TARGET LT: LEFT BREAS T - SEPTEMBER 07, 2019 - SP Standard views. SP Technologist: Eliecer Jamesogrsoco her SP Prior study comparison: December 04, right breast [id number] SP MAMMO DIAG RT, performed at [facility].November 27, 2017, bilateral I [id number] MAMMO DIAGNOSTIC SP XENIA/NAYELI performed at [facility]. SP November 27, 2017, bilateral [id number] US B REAST TARGET BILAT SP performed at [facility]. SP History: 59-year-old female status post bilateral mastectomy and SP reconstruction who presents for evaluat ion of left skin SP thickening/swelling. SP Targeted left breast ultrasound was per formed. Prior left SP mastectomy and implant reconstruction. No suspicious solid or SP cystic mass is seen within the region o f swelling within the left SP breast at 8:00 or within the area of in terest/thickening as SP directed by the patient within the lowe r outer quadrant. No SP suspicious finding is seen within an ar ea of pain within the SP lateral inferior chest wall. SP Approved by Mekhi Mcclain M.D. on 09/07/20 9:27 AM SP By my electronic signature, I attest th at I have personally SP reviewed the images for this examinatio n and formulated the SP interpretations and opinions expressed in this report SP Finalized by Viv Hankins M.D. on 9:29 AM. SP Dictated by Mekhi Mcclain M.D. on 09/07/20 9:18 AM. SP Electronically signed and approved by: Viv Hankins M.D. SP [id number] SP Procedure Note POS SP Interface, Radiant Results - 09/07/2019 9:30 AM CDT left chest wall thickening at 8:00 and 4:00 [id number] US BREAST TARGET LT: LEFT BREAST - SEPTEMBER 07, 2019 - Standard views. Technologist: Theodora Ling, Salesperson [employer] Prior study comparison: December 04, 2017, right breast [id number] MAMMO DIAG RT, performed at [facility]. November 27, 2017, bilateral [id number] MAMMO DIAGNOSTIC XENIA/NAYELI performed at [facility]. November 27, 2017, bilateral [id number] US BREAST TARGET BILAT performed at [facility]. History: 59-year-old female status post bilateral mastectomy and reconstruction who presents for evaluation of left skin thickening/swelling. Targeted left breast ultrasound was performed. Prior left mastectomy and implant reconstruction. No suspicious solid or cystic mass is seen within the region of swelling within the left breast at 8:00 or within the area of interest/thickening as directed by the patient within the lower outer quadrant. No suspicious finding is seen within an area of pain within the lateral inferior chest wall. Approved by Mekhi Mcclain M.D. on 09/07/2019 9:27 AM By my electronic signature, I attest that I have personally reviewed the images for this examination and formulated the interpretations and opinions expressed in this report Finalized by Viv Hankins M.D. on 09/07/2019 9:29 AM. Dictated by Mekhi Mcclain M.D. on 09/07/2019 9:18 AM. Electronically signed and approved by: Viv Hankins M.D. [id number] SPIMPRESSION ACR BI-RADS Assessments: BIRAD 1-Negative RECOMMENDATION: No screening mammo. Performing Organization Address City/State/Zipcode Ph one Number SP [facility] RAD RESULTS SP from Last 3 Months Insurance Type POS Payer Benefit Subscriber ID Effective Phone Address SP Plan / Dates SP Group SP PPO SP BCBS [facility] xxxxxxxxxxxx 2016-P SP PREF CARE resent SP BLUE SP SP Advance Directives Patient Content Checker Explanation POS Type Date Recorded SP SP Advance 11/10/2018 9:24 AM SP Directive/DPOA SP Date Inactivated Comments POS Code Status Date Activated SP 01/27/2018 12:29 PM SP Full Code 01/26/2018 12:29 PM SP Provider has discussed Code Status Yes SP w/Patient or Family? SP
--- OUTSIDE RECORDS SUMMARY | 2019-10-16 20:13 | XMS REPORT | Encounter Summary ---
Author Author [facility] POS Organization [facility] SP Address Unknown SP Phone Unavailable SP Care Team Providers Care Workers Compensation Claims Assistant Name Role Phone POS Destiny Erazo MD PCP SP Encounter Details Care Team Description POS Date Type Department SP SP Hermelindo Stanton MD [address] [place] [address] Malignant neoplasm of upper-outer quadra nt of left breast in SP estrogen receptor positive (HCC) (Primary Dx); Encounter for breast reconstruction following mastectomy 10/13/2019 Prep for Case [facility] [place] [address] SP [address] [place] [address] SP [phone] SP Social History Date POS Tobacco Use [...] No SP documented as of this encounter Plan of Treatment Care Team Description POS Date Type Specialty SP SP Hermelindo Stanton MD [address] [place] [address] [phone] Malignant neoplasm of upper-outer quadra nt of left breast in SP estrogen receptor positive (HCC) 11/14/2019 Hospital SP Encounter SP documented as of this encounter Visit Diagnoses Diagnosis POS Malignant neoplasm of upper-outer quadr ant of left breast in female, estrogen SP positive (HCC) - Primary SP Encounter for breast reconstruction fol lowing mastectomy SP documented in this encounter
--- OUTSIDE RECORDS SUMMARY | 2019-10-16 20:14 | XMS REPORT | Encounter Summary ---
Author Author [facility] POS Organization [facility] SP Address Unknown SP Phone Unavailable SP Care Team Providers Care Health Information Managers Name Role Phone POS Destiny Erazo MD PCP SP Reason for Visit * Reason Comments POS Other surgery scheduling SP Encounter Details Care Team Description POS Date Type Department SP SP Hermelindo Stanton MD [address] [place], [place] [id number] Other (surgery scheduling ) SP 09/12/2019 Telephone [facility] SP [address] [place] [phone] SP [phone] SP Social History Date POS Tobacco Use [...] * Telephone Encounter - Leatha Guzman - 09/12/2019 2:24 PM CDT Called and lvm for pt regarding surgery scheduling documented in this encounter Plan of Treatment Care Team Description POS Date Type Specialty SP SP Hermelindo Stanton MD [address] [place] [address] [phone] 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
--- OUTSIDE RECORDS SUMMARY | 2019-10-16 20:14 | XMS REPORT | Encounter Summary ---
Author Author [facility] POS Organization [facility] SP Address Unknown SP Phone Unavailable SP Care Team Providers Care Paper Bag Making Machinist Name Role Phone POS Destiny Erazo MD PCP SP Reason for Visit * Reason Comments POS Cancer SP Encounter Details Care Team Description POS Date Type Department SP SP Leona Ross PA-C [address] [facility] [place] [address] At risk for lymphedema (Primary Dx) SP 07/28/2019 Nurse Only [facility] [place] [address] [place] [address] SP [phone] SP Social History Date POS Tobacco Use [...] of Assessment POS Functional Status Response SP 07/28/2019 SP Does the patient have a hearing impairment: Yes - Ti nnitus SP 07/28/2019 SP Does the patient have a visual impairment: Yes SP 07/28/2019 SP Does the patient have impaired ambulation: No SP 07/28/2019 SP Does the patient have an activity of daily living No SP (ADL) impairment: SP 07/28/2019 SP Does the patient have an instrumental activity of No SP daily living (IADL) impairment: SP Date of Assessment POS Cognitive Status Response SP 07/28/2019 SP Does the patient have a cognitive impairment: No SP documented as of this encounter Progress Notes * Dipti Knowles RN - 07/28/2019 3:45 PM CDT The result of BIS (Bioimpedance testing) during an office visit with Leona genao PA-C on 07/28/19 was normal 0.7 (-2.1 true baseline). Pt notified via my chart. Routine follow up with BIS surveillance. BIS to be coordinated with s urgical visit follow ups. documented in this encounter Plan of Treatment Care Team Description POS Date Type Specialty SP SP Hermelindo Stanton MD [address] [place] [address] [phone] Malignant neoplasm of upper-outer quadra nt of left breast in SP estrogen receptor positive (HCC) 11/14/2019 [facility] SP Encounter SP Order Schedule POS Name Type Priority Associated Diag noses SP Ordered: 07/28/2019 SP PERFORM L-DEX Procedures Routine At risk for lym phedema SP documented as of this encounter Visit Diagnoses Diagnosis POS At risk for lymphedema - Primary SP Other specified conditions influencing health status SP documented in this encounter
--- OUTSIDE RECORDS SUMMARY | 2019-10-16 20:14 | XMS REPORT | Encounter Summary ---
Author Author [facility] POS Organization [facility] SP Address Unknown SP Phone Unavailable SP Care Team Providers Care Services Clerk Name Role Phone POS Destiny Erazo MD PCP SP Reason for Visit * Reason Comments POS Heme/Onc Care SP Encounter Details Care Team Description POS Date Type Department SP SP Leona Ross PA-C [address] [place] [address] Thickening of skin of breast (Primary Dx ) SP 07/28/2019 Office Visit [facility] [place] [address] [place] [address] SP [phone] SP Social History Date POS Tobacco Use [...] available. SP documented as of this encounter Last Filed Vital Signs Reading Time Taken Comments POS Vital Sign SP 139/86 07/28/2019 3:25 PM CDT SP Blood Pressure SP 84 07/28/2019 3:25 PM CDT SP Pulse SP 37 C (98.6 F) 07/28/2019 3:25 PM CDT SP Temperature SP 18 07/28/2019 3:25 PM CDT SP Respiratory Rate SP 100% 07/28/2019 3:25 PM CDT SP Oxygen Saturation SP - - SP Inhaled Oxygen SP Concentration SP 74.9 kg (165 lb 3.2 oz) 07/28/2019 3:25 PM CDT SP Weight SP 172.7 cm (5' 8") 07/28/2019 3:25 PM CDT SP Height SP 25.12 07/28/2019 3:25 PM CDT SP Body Mass Index SP documented in this encounter Functional Status Date of Assessment [...] as of this encounter Progress Notes * Leona Ross PA-C - 07/28/2019 4:00 PM CDT Name: Leslie Benavidez : 1960 AGE: 59 y.o. DATE OF SERVICE: 07/28/2019 Cancer Staging Malignant neoplasm of upper-outer quadrant of left breast in female, estrogen re ceptor positive (HCC) Staging form: Breast, AJCC 8th Edition - Clinical stage from 08/04/2017: Stage IB (cT2, cN0, cM0, G1, ER: Positive, IL: Positive, HER2: Negative) - Signed by Leona Morrison PA-C on 11/26/2017 - Pathologic stage from 01/26/2018: No Stage Recommended (ypT2, pN1(sn), cM0, G2, ER: Positive, IL: Negative, HER2: Negative) - Signed by Leona Morrison PA-C o n 02/01/2018 DIAGNOSIS: Left grade 1 ILC (ER100%, PR0%, HER2 1+, Ki-67 1%) at 1:30, dx 7 History of Present Illness Ms. Benavidez returns to the clinic for routine 1.5 year follow up. HISTORY: Ms. Benavidez is a female who presented [facility] on 11/27/2017 at age 57 for evaluation of left breast cancer. Ms. Benavidez pal pated a lump in the summer of 2016. When it increased in size she went for imagi ng. There was a new left breast lump on mammogram and an indeterminate group of calcification in the right breast. Left breast sono-guided biopsy 08/04/17 ([place], [place]) revealed grade invasive lobular carcinoma. Right stereotactic biopsy w as not performed. Right stereotactic biopsy 12/04/17 () revealed fibrocystic ch anges. Ms. Benavidez underwent bilateral skin sparing mastectomy/left SLNB/Vanessa on 01/26/18. Final pathology of the right breast revealed focal Atypical ductal hyperpl gina and Atypical lobular hyperplasia. She completed radiation therapy with Dr. Bennett in [place], [place]. She started Femara in 05/2018. She is planning revision surgery with Dr. Stanton in 10/2018. PATHOLOGY: Tumor: Size/Extent of Tumor Bed: 3.1 x2.3 x 1.7 cm Size/Extent of Residual Invasive Tumor: 3.1 x 2.3 x 1.7 cm Overall Residual Cellularity of the Tumor Bed: 5% Margins Free From Tumor: Yes ER: positive IL: positive Her 2: negative Grade: 2 Lymph Nodes: 1/7 SLNs, 4.5 mm met LVSI: no Extranodal extension: no BREAST IMAGING: Mammogram: -- Bilateral diagnostic mammogram 07/30/17 ([place], [place]) revealed heterogeneousl y dense breast tissue. In the left breast in the area of the marker there was a prominent region of architectural distortion. This finding was worrisome for mal ignancy and ultrasound was recommended. There was a small rounded density in the retroareolar area of the right breast. The tomographic images suggest superimpo sition, but ultrasound is recommended. At 12:00 there was a group of microcalcif ications that had developed in the interval since prior study. They were indeter minate on magnification views. Stereotactic biopsy was recommended. -- Bilateral diagnostic mammogram 11/27/17 () revealed heterogeneously dense fauzia ast tissue. Right breast: A circumscribed nodule was seen in the far medial righ t breast near 2:00 and will be further evaluated with ultrasound. In addition, m ultiple calcifications were seen. At 1:00, anterior depth, the most suspicious cluster was identified measuring at least 13 mm in diameter. Stereotactic biopsy of this cluster was recommended. Additional calcifications were seen on the CC magnification view laterally, which I would follow, unless biopsy shows atypia or breast cancer. Left breast: The known neoplasm was seen in the upper outer qu adrant, posterior depth, with associated calcifications, and a marking clip on t he lateral margin. No additional suspicious findings were seen. Ultrasound: -- Bilateral breast ultrasound 07/30/17 ([place], [place]) revealed in the left breas t in the region of mammographic abnormality there was a poorly defined shadowing measuring 2.1 x 1.8 x 2 cm. The mammogram also identified a small rounded area of slightly increased density in the retroareolar right breast. There were no di screte ultrasound abnormalities. -- Left breast ultrasound 10/22/17 ([place], [place]) revealed a heterogeneous hypo echoic mass measuring 2 x 1.4 x 1.9 cm. This was associated with significant sha dowing. Area of increased vascularity anterior to this was seen. This mass is at 1:30, 10 cm FTN. This previously measured 2.1 x 1.7 x 2.0 cm. The surrounding a melisa revealed no additional nodules. -- Bilateral breast ultrasound 11/27/17 () revealed Right breast: In the area of mammographic abnormality, a mixed echogenic nodule is seen at 2:00, 10 cm from the nipple measuring 9 x 5 mm which correlated with the mammogram. I reviewed th is area of concern on MRI scan, given the absence of enhancement on the MRI scan , and a relatively benign appearance on the mammography and ultrasound, I would not suggest biopsy, but rather routine follow-up. Left breast: The known neoplas m was seen at 2:00, 9 cm from the nipple, measuring 2.9 x 1.1 x 2.1 cm, smaller than appreciated on outside MRI study. Evaluation of the axilla showed no adenop athy. MRI: -- Bilateral breast MRI 08/14/17 ([place], [place]) revealed no suspicious mass or n on mass enhancement in the right breast. In the left breast at 3:00 there was an irregular region of nonmass enhancement and distortion. This measured 2.6 x 2.4 cm. A similar appearing spicule of enhancement was identified extending medially from this region of nonmass enhancement and terminated in the region central to the nipple. Including the spicule, the overall dimension of the nonmass enhanc ement was 3.5 cm. An additional small focus of similar appearing enhancement was identified 1 cm anterior to the region of nonmass enhancement. The total measur ement of both areas was 5.2 cm. No additional suspicious mass or nonmass enhance ment in the left breast. No axillary adenopathy. Other: -- PET/CT 08/11/17 ([place], [place]) revealed no evidence of metastasis. REPRODUCTIVE HEALTH: Age at first Menarche: 15 Age at First Live : N/A Age at Menopause: Hysterectomy at 43, HRT from 45-57 : 0 PROCEDURE: Bilateral skin sparing mastectomy/left SLNB/immediate implants, 8 (Reagan/Romy) PERTINENT PMH: Personal history of thyroid cancer FAMILY HISTORY: Brother with prostate cancer, sister with ocular melanoma PHYSICAL EXAM on PRESENTATION: Right - No palpable breast masses. No skin, nipp le, or areolar change. Left - Thickening at 2:00 without discrete palpable mass. No skin or nipple changes. No supraclavicular or axillary adenopathy. MEDICAL ONCOLOGY: Dr. Jimenez NEOADJUVANT THERAPY: AC + Taxol completed 01/07/18 PRESENT THERAPY: Femara started 05/2018; Aromasin started 2017 REFERRED BY: Dr. Jimenez Review of Systems Constitutional: Negative for fever, chills, appetite change. fatigue. HENT: Negative for hearing loss, congestion, rhinorrhea and tinnitus. choking Eyes: Negative for pain, discharge and itching. Respiratory: Negative for cough, chest tightness and shortness of breath. Cardiovascular: Negative for chest pain and palpitations. Gastrointestinal: Negative for abdominal distention, pain, nausea, vomiting, and diarrhea. Genitourinary: Negative for frequency, vaginal bleeding, difficulty urinating an d pelvic pain. Musculoskeletal: Negative for myalgias, back pain, joint swelling and arthralgia s. Skin: Negative for rash. Neurological: Negative for dizziness, weakness, light-headedness and headaches. Hematological: Does not bruise/bleed easily. Psychiatric/Behavioral: Negative for disturbed wake/sleep cycle. The patient is not nervous/anxious. Allergies Allergen Reactions Nickel RASH Sulfasalazine SEE COMMENTS Family history Medical History: Diagnosis Date Arthritis At risk for lymphedema L/L (-2.1 true baseline) Back pain Cancer of thyroid (HCC) GERD (gastroesophageal reflux disease) History of chemotherapy Dr. Howell;01/07/18 Osteopenia PONV (postoperative nausea and vomiting) Port-A-Cath in place 07/2017 right chest PVC's (premature ventricular contractions) Radiation pneumonitis (HCC) 06/2018;07/2018;08/2018 Squamous cell carcinoma of neck 2018 Tachycardia Surgical History: Procedure Laterality Date THYROIDECTOMY 10/2014 COLONOSCOPY 2015 PORTACATH PLACEMENT Right 07/2017 BREAST BIOPSY Left 08/04/2017 [place], [place]; sono guided breast biopsy MASTECTOMY Bilateral 01/26/2018 BILATERAL SKIN SPARING MASTECTOMIES, LEFT SENTINEL LYMPH NODE BIOPSY performed by Casey Kirk DO at [facility] OR/PERIOP BREAST RECONSTRUCTION Bilateral 01/26/2018 DIRECT TO IMPLANT POST MASTECTOMY, ADM PLACEMENT AND SPY performed by Hermelindo Villarreal MD at [facility] OR/PERIOP SKIN CANCER EXCISION 06/2018 neck HX HYSTERECTOMY Family History Problem Relation Age of Onset Diabetes Mother 65 Cancer-Colon Sister 68 Cancer Sister 68 leukemia Arthritis-osteo Sister Stroke Sister Cancer-Prostate Brother Cancer Brother 71 Arthritis-rheumatoid Brother 65 Diabetes Maternal Aunt Arthritis-osteo Maternal Aunt Diabetes Maternal Grandmother Arthritis-osteo Maternal Grandmother Diabetes Paternal Grandmother Arthritis-rheumatoid Paternal Grandmother Arthritis-osteo Paternal Grandmother Social History Socioeconomic History Marital status: Spouse name: Not on file Number of children: Not on file Years of education: Not on file Highest education level: Not on file Occupational History Not on file Tobacco Use Smoking status: Never Smoker Smokeless tobacco: Never Used Substance and Sexual Activity Alcohol use: Yes Alcohol/week: 0.6 - 1.2 oz Types: 1 - 2 Glasses of wine per week Comment: once a week Drug use: No Sexual activity: Not on file Other Topics Concern Not on file Social History Narrative Not on file Objective: cholecalciferol (VITAMIN D-3) 1,000 units tablet Take 5,000 Units by mouth e very 7 days. exemestane (AROMASIN) 25 mg tab Take 25 mg by mouth daily. Take after a meal . levothyroxine (SYNTHROID) 125 mcg tablet lutein/zeaxanthin (OCUVITE LUTEIN 25 PO) Take 1 tablet by mouth daily. Vitals: 07/28/19 1525 BP: 139/86 Pulse: 84 Resp: 18 Temp: 37 C (98.6 F) TempSrc: Oral SpO2: 100% Weight: 74.9 kg (165 lb 3.2 oz) Height: 172.7 cm (68") Body mass index is 25.12 kg/m. Pain Score: Zero Fatigue Scale: 0-None Pain Addressed: N/A Patient Evaluated for a Clinical Trial: Patient currently enrolled in a [facility] clinical trial. Eastern Cooperative Oncology Group performance status is 0, Fully active, able t o carry on all pre-disease performance without restriction.. Physical Exam Pulmonary/Chest: Vitals reviewed. RIGHT BREAST EXAM: Breast: S/p mastectomy/implant. No palpable masses Skin Erythema: No Attachment of Overlying Skin: No Peau d' orange: No Chest Wall Attachment: No Nipple Inversion: No Nipple Discharge: No LEFT BREAST EXAM: Breast: S/p mastectomy/SLNB/implant. Skin edema at 8:00 and 4:00 Skin Erythema: No Attachment of Overlying Skin: No Peau d' orange: No Chest Wall Attachment: No Nipple Inversion: No Nipple Discharge: No RIGHT REGINALD BASIN EXAM: Axillary: negative Infraclavicular: negative Supraclavicular: negative LEFT REGINALD BASIN EXAM: Axillary: negative Infraclavicular: negative Supraclavicular: negative Constitutional: No acute distress. HEENT: Head: Normocephalic and atraumatic. Eyes: No discharge. No scleral icterus. Pulmonary/Chest: No respiratory distress. Neurological: Alert and oriented to person, place and time. No cranial nerve def icit. Skin: Warm and dry. No rash noted. No erythema. No pallor. Psychiatric: Normal mood and affect. Behavior is normal. Judgement and thought c ontent normal. Assessment and Plan: Left grade 1 ILC (ER100%, PR0%, HER2 1+, Ki-67 1%) at 1:30, dx 07/2017 Ms. Benavidez reports she is doing well. She has started exercising more and buildin g up her stamina. She has been having issues with choking including choking on s omething unknown 2 weeks ago and needing the heimlich. She also reports waking u p at night choking. She is planning to speak with Dr. Jimenez about this next wee k. We discussed trying to elevate her head of bed at night and she can try OTC r eflux medications to see if this helps. She may need a EGD for evaluation. She r eports having some thickening of the left mastectomy flap. On exam, there is vikas e skin edema at the medial inferior edge and lateral inferior edge of the mastec wilberto flap. 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 We discu ssed massage and use of compression. I will schedule a left diagnostic mammogram and ultrasound in August when she comes to see Dr. Stanton for evaluation of the area. If the areas are not improving or worsen in the next 2 weeks I would recommend moving up her imaging. If the areas resolve then we can cancel the im aging. Ms. Benavidez continues follow up with Dr. Jimenez for medical oncology. She i s on Aromasin and tolerating it well. She had a BIS today for arm lymphedema kelechi veillance. Ms. Benavidez is to return to the clinic in 1 year with BIS. She was give n ample time to ask questions all of which were answered to her satisfaction. e was encouraged to call with any interval questions or concerns. 1. Massage and compression 2. Left diagnostic mammogram and ultrasound on 09/07/19 3. Will follow up via phone for the skin thickening in 2 weeks 4. Continue follow up with Dr. Stanton 5. Continue follow up with Dr. Jimenez 6. RTC in 1 year with KRISHNA Ross PA-C * Adan Colbert MA - 07/28/2019 4:00 PM CDT Bioimpedance Spectroscopy performed. Advised patient that Normal result will be sent within 24 hours by mail or via [employer] (preferred). The patient will be c ontacted via phone by the lymphedema nurse with any abnormal results. documented in this encounter Plan of Treatment Care Team Description POS Date Type Specialty SP SP Hermelindo Stanton MD [address] [place] [address] [phone] Malignant neoplasm of upper-outer quadra nt of left breast in SP estrogen receptor positive (HCC) 11/14/2019 Hospital SP Encounter SP documented as of this encounter Results * US BREAST TARGET LT (09/07/2019 9:17 AM CDT) Specimen POS Impressions Performed At ACR BI-RADS Assessments: BIRAD 1-Negative [facility] SP RECOMMENDATION: SP No screening mammo. SP Narrative Performed At left chest wall thickening at 8:00 and 4:00 [facility] SP [id number] US BREAST TARGET LT: LEFT BREAS T - SEPTEMBER 07, 2019 - SP SP Standard views. SP Technologist: Sharita James her SP Prior study comparison: December 04, right breast [id number] SP MAMMO DIAG RT, performed at [facility].November 27, 2017, bilateral I [id number] MAMMO DIAGNOSTIC SP XENIA/NAYELI performed at [facility]. SP November 27, 2017, bilateral [id number] US B REAST TARGET BILAT SP [facility] SP History: 59-year-old female status post [...] and approved by: Viv Hankins M.D. SP [id number] SP Procedure Note POS SP Interface, Radiant Results - 09/07/2019 9:30 AM CDT left chest wall thickening at 8:00 and 4:00 [id number] US BREAST TARGET LT: LEFT BREAST - SEPTEMBER 07, 2019 - Standard views. Technologist: Theodora Ling, Mid Level Java Developer Prior study comparison: December 04, 2017, right breast [id number] MAMMO DIAG RT, performed at [facility]. November 27, 2017, bilateral [id number] MAMMO DIAGNOSTIC XENIA/NAYELI performed at [facility]. November 27, 2017, bilateral [id number] US BREAST TARGET BILAT performed at [facility]. History: 59-year-old female status post bilateral mastectomy [...] signed and approved by: Viv Hankins M.D. [id number] SPIMPRESSION ACR BI-RADS Assessments: BIRAD 1-Negative RECOMMENDATION: No screening mammo. Performing Organization Address City/State/Zipcode Ph one Number SP [facility] SP documented in this encounter Visit Diagnoses Diagnosis POS Thickening of skin of breast - Primary SP Unspecified breast disorder SP documented in this encounter
--- OUTSIDE RECORDS SUMMARY | 2019-10-16 20:14 | XMS REPORT | Encounter Summary ---
Author Author [facility] POS Organization [facility] SP Address Unknown SP Phone Unavailable SP Care Team Providers Care Sail Lay Out Worker Name Role Phone POS Destiny Erazo MD PCP SP Reason for Visit * Reason Comments POS Follow Up SP Encounter Details Care Team Description POS Date Type Department SP SP Hermelindo Stanton MD [address] [place], [place] [id number] Deformity and disproportion of reconstru cted breast (Primary SP Encounter for breast reconstruction following mastectomy 09/07/2019 Office Visit [facility] [place] [address] [place] [address] SP [phone] SP Social History Date POS Tobacco Use [...] 09/07/2019 10:31 AM CDT SP Temperature SP - - SP Respiratory Rate SP 100% 09/07/2019 10:31 AM CDT SP Oxygen Saturation SP - - SP Inhaled Oxygen SP Concentration SP 75.6 kg (166 lb 9.6 oz) 09/07/2019 10:31 AM CDT SP Weight SP 172.7 cm (5' 8") 09/07/2019 10:31 AM CDT SP Height SP 25.33 09/07/2019 10:31 AM CDT SP Body Mass Index SP documented [...] as of this encounter Progress Notes * Hermelindo Stanton MD - 09/07/2019 10:45 AM CDT Date of Service: 09/07/2019 Subjective: Leslie Benavidez is a 59 y.o. female. History of Present Illness Leslie Benavidez returns to clinic in follow-up. 11/10/2018 breast mound revision bilateral (Bilateral)with right breast capsu lectomy and left breast capsulotomy 01/26/2018 BILATERAL SKIN SPARING MASTECTOMIES, LEFT SENTINEL LYMPH NODE BIOPSY (B ilateral) BILATERALDIRECT TO IMPLANTBREAST RECONSTRUCTION WITH MENTOR [id number] GEL IMP LANTS, ALLODERM AND SPY FOR VASCULAR FLAP ASSESSMENT(Bilateral) Back to full activities She is undergoing cataract surgery this Thursday Overall pleased with results, has mild capsule on the right and some rippling on the left. Review of Systems Constitutional: Negative. Respiratory: Negative. Musculoskeletal: Negative. Neurological: Negative. Objective: cholecalciferol (VITAMIN D-3) 1,000 units tablet Take 5,000 Units by mouth e very 7 days. exemestane (AROMASIN) 25 mg tab Take 25 mg by mouth daily. Take after a meal . levothyroxine (SYNTHROID) 125 mcg tablet lutein/zeaxanthin (OCUVITE LUTEIN 25 PO) Take 1 tablet by mouth daily. Vitals: 09/07/19 1031 BP: 126/78 Pulse: 80 Temp: 36.9 C (98.4 F) TempSrc: Oral SpO2: 100% Weight: 75.6 kg (166 lb 9.6 oz) Height: 172.7 cm (68") Body mass index is 25.33 kg/m. Physical Exam Constitutional: She is oriented to person, place, and time. No distress. HENT: Head: Atraumatic. Cardiovascular: Normal rate. Pulmonary/Chest: No respiratory distress. Left side is well healed. Some upper pole rippling, power 2. More kyphosis and s houlders are rolled in, creating a little more soft tissue laxity. Right side is well healed. Abdominal: Soft. Neurological: She is alert and oriented to person, place, and time. Skin: Skin is warm and dry. Psychiatric: She has a normal mood and affect. Her behavior is normal. Assessment and Plan: Disscussd option for additional fat grafting to bilateral breast, medial capsulo wilberto on the right. She is aware of expected outcome and recovery. Plan for bilateral breast fat grafting, right breast medial capsulotomy. 2hr. GA DS. She would like to do this prior to the end of the year, would like to be on a cancellation list. Otherwise, continue annual follow-up and implant self exam. I personally interviewed and examined the patient, and formulated the assessment and plan. The documentation was provided by a department scribe. Hermelindo medellin MD In the presence of Hermelindo Stanton MD, I have taken down these notes, Radhika Marlow. 09/07/2019 11:29 AM documented in this encounter Plan of Treatment Care Team Description POS Date Type Specialty SP SP Hermelindo Stanton MD [address] [place] [address] [phone] Malignant neoplasm of upper-outer quadra nt of left breast in SP estrogen receptor positive (HCC) 11/14/2019 Hospital SP Encounter SP documented as of this encounter Visit Diagnoses Diagnosis POS Deformity and disproportion of reconstr ucted breast - Primary SP Deformity of reconstructed breast SP Encounter for breast reconstruction fol lowing mastectomy SP documented in this encounter
--- OUTSIDE RECORDS SUMMARY | 2019-10-16 20:14 | XMS REPORT | Encounter Summary ---
Author Author [facility] POS Organization [facility] SP Address Unknown SP Phone Unavailable SP Care Team Providers Care Director Fraud Name Role Phone POS Destiny Erazo MD PCP SP Reason for Visit * Reason Comments POS Results SP Encounter Details Care Team Description POS Date Type Department SP SP Leona Ross PA-C [address] [facility] [place], [place] [phone] Results SP 09/07/2019 Telephone [facility] [address] [place], [place] SP [phone] SP Social History Date POS Tobacco Use [...] patient have an instrumental activity of No daily living (IADL) impairment: SP Date of Assessment POS Cognitive Status Response SP 09/07/2019 SP Does the patient have a cognitive impairment: No SP documented as of this encounter Miscellaneous Notes * Telephone Encounter - Leona Ross PA-C - 09/07/2019 3:43 PM CDT Attempted to contact Ms. Benavidez regarding her ultrasound. The voicemail kept eras ing my message. Sent [employer] message. Leona Ross PA-C documented in this encounter Plan of Treatment Care Team Description POS Date Type Specialty SP SP Hermelindo Stanton MD [address] [place] [address], [place] [address] [phone] 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
--- OUTSIDE RECORDS SUMMARY | 2019-10-16 20:14 | XMS REPORT | Encounter Summary ---
Author Author [facility] POS Organization [facility] SP Address Unknown SP Phone Unavailable SP Care Team Providers Care Green [employer] Marketing Analyst Name Role Phone POS Destiny Erazo MD PCP SP Reason for Visit * Reason Comments POS Advice Only SP Encounter Details Care Team Description POS Date Type Department SP SP Leona Ross PA-C [address] [facility] [address] Advice Only SP 08/12/2019 Telephone [facility] [place] [address] [place] [address] SP [phone] SP Social History Date POS Tobacco Use [...] Telephone Encounter - Leona Ross PA-C - 08/12/2019 10:04 AM CDT LM for Ms. Benavidez to follow up on skin thickening/lymphedema. Callback provided. Leona Ross PA-C documented in this encounter Plan of Treatment Care Team Description POS Date Type Specialty SP SP Hermelindo Stanton MD [address] [place] [address] [phone] 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
--- OUTSIDE RECORDS SUMMARY | 2019-10-16 20:14 | XMS REPORT | Encounter Summary ---
Author Author [facility] POS Organization [facility] SP Address Unknown SP Phone Unavailable SP Care Team Providers Care Gasket Supervisor Name Role Phone POS Destiny Erazo MD PCP SP Encounter Details Care Team Description POS Date Type Department SP SP Leona Ross PA-C [address] [place], [place] [id number] SP 09/07/2019 Hospital Imaging SP Encounter [address] [place] [address] SP [phone] SP Social History Date POS Tobacco Use [...] No SP documented as of this encounter Medications at Time of Discharge Start Date End Date POS Medication Sig Dispensed Refills SP SP cholecalciferol (VITAMIN Take 5,000 0 SP D-3) 1,000 units tablet Units by SP mouth every 7 SP days. SP SP exemestane (AROMASIN) 25 Take 25 mg by 0 SP mg tab mouth daily. SP Take after a SP meal. SP 12/28/2018 SP levothyroxine (SYNTHROID) 0 SP 125 mcg tablet SP SP lutein/zeaxanthin Take 1 tablet 0 SP (OCUVITE LUTEIN 25 PO) by mouth SP daily. 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
--- OUTSIDE RECORDS SUMMARY | 2019-10-16 20:14 | XMS REPORT | Encounter Summary ---
Author Author [facility] POS Organization [facility] SP Address Unknown SP Phone Unavailable SP Care Team Providers Care Animal Assistant Name Role Phone POS Destiny Erazo MD PCP SP Encounter Details Care Team Description POS Date Type Department SP SP Leona Ross PA-C [address] [place], [place] [id number] SP 09/07/2019 [facility] [place] [address] [place] [address] SP [phone] SP Social History Date POS Tobacco Use [...] Type Specialty SP SP Hermelindo Stanton MD [address] [place] [id number] 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 SP Narrative Performed At left chest wall thickening at 8:00 and 4:00 [facility] SP [id number] US BREAST TARGET LT: LEFT BREAS T - SEPTEMBER 07, 2019 - SP SP Standard views. SP Technologist: Sharita James her SP Prior study comparison: December 04 8, right breast [id number] SP MAMMO DIAG RT, performed at [facility].November 27, 2017, bilateral I [id number] MAMMO DIAGNOSTIC SP XENIA/NAYELI performed at [facility]. SP November 27, 2017, bilateral [id number] US B REAST TARGET BILAT SP performed at [facility]. SP History: 59-year-old female status post [...] and approved by: Viv Hankins M.D. SP [phone] SP Procedure Note POS SP Interface, Radiant Results - 09/07/2019 9:30 AM CDT left chest wall thickening at 8:00 and 4:00 [id number] US BREAST TARGET LT: LEFT BREAST - SEPTEMBER 07, 2019 - Standard views. Technologist: Theodora Ling, Shrimping Boat Captain Prior study comparison: December 04, 2017, right breast [id number] MAMMO DIAG RT, performed at [facility]. November 27, 2017, bilateral [id number] MAMMO DIAGNOSTIC XENIA/NAYELI performed at [facility]. November 27, 2017, bilateral [id number] US BREAST TARGET BILAT performed at [facility]. History: 59-year-old female status post [...] signed and approved by: Viv Hankins M.D. [id number] SPIMPRESSION ACR BI-RADS Assessments: BIRAD 1-Negative RECOMMENDATION: No screening mammo. Performing Organization Address City/State/Zipcode Ph one Number SP [facility] SP documented in this encounter Visit Diagnoses Diagnosis POS Thickening of skin of breast SP Unspecified breast disorder SP documented in this encounter
--- OUTSIDE RECORDS SUMMARY | 2019-10-16 20:24 | XMS REPORT | Continuity of Care Document ---
Author Organization Unknown POS Address Unknown SP Phone Unavailable SP Allergies Active Description Code Type Severity POS Reaction Onset Reported/Identified POS to Patient Clinical Status POS Yes No Known Drug Allergies [id number] Drug SP Unknown N/A 08/18/2017 SP SP Yes sulfasalazine [id number] Gui g Allergy SP Unknown N/A 09/06/2019 SP Medications There is no data. Problems Date Dx Coded Attending Type Code POS Diagnosed By POS JOSE TUCKER Ot C50.412 SP NEOPLASM OF UPPER-OUTER QUADRANT O SP JOSE TUCKER Ot E89.0 SP HYPOTHYROIDISM SP JOSE TUCKER Ot Z17.0 SP RECEPTOR POSITIVE STATUS [ER+] SP JOSE TUCKER Ot Z51.11 SP FOR ANTINEOPLASTIC CHEMOTHERAP SP JOSE TUCKER Ot Z79.899 SP LONGTERM (CURRENT) DRUG THERAPY SP JOSE TUCKER Ot Z80.42 SP HISTORY OF MALIGNANT NEOPLASM OF SP JOSE TUCKER Ot Z80.8 SP HISTORY OF MALIGNANT NEOPLASM OF SP JOSE TUCKER Ot Z85.850 SP HISTORY OF MALIGNANT NEOPLASM O SP 10/22/1017 NEELAM LOPEZ MD Ot C50.412 SP NEOPLASM OF UPPER-OUTER QUADRANT O SP 10/22/1017 NEELAM LOPEZ MD Ot E89.0 SP HYPOTHYROIDISM SP 10/22/1017 NEELAM LOPEZ MD Ot Z17.0 SP RECEPTOR POSITIVE STATUS [ER+] SP 10/22/1017 NEELAM LOPEZ MD Ot Z51.11 SP FOR ANTINEOPLASTIC CHEMOTHERAP SP 10/22/1017 NEELAM LOPEZ MD Ot Z79.899 SP PHARMACIST TECHNICIAN (CURRENT) DRUG THERAPY SP 10/22/1017 JOHN MD, RICHTER Ot Z80.42 SP HISTORY OF MALIGNANT NEOPLASM OF SP 10/22/1017 NEELAM LOPEZ MD Ot Z80.8 SP HISTORY OF MALIGNANT NEOPLASM OF SP 10/22/1017 NEELAM LOPEZ MD Ot Z85.850 SP HISTORY OF MALIGNANT NEOPLASM O SP 10/22/1247 NEELAM LOPEZ MD Ot C50.412 SP NEOPLASM OF UPPER-OUTER QUADRANT O SP 10/22/1247 NEELAM LOPEZ MD Ot E89.0 SP HYPOTHYROIDISM SP 10/22/1247 NEELAM LOPEZ MD Ot Z17.0 SP RECEPTOR POSITIVE STATUS [ER+] SP 10/22/1247 NEELAM LOPEZ MD Ot Z51.11 SP FOR ANTINEOPLASTIC CHEMOTHERAP SP 10/22/1247 NEELAM LOPEZ MD Ot Z79.899 SP LONGTERM (CURRENT) DRUG THERAPY SP 10/22/1247 NEELAM LOPEZ MD Ot Z80.42 SP HISTORY OF MALIGNANT NEOPLASM OF SP 10/22/1247 NEELAM LOPEZ MD Ot Z80.8 SP HISTORY OF MALIGNANT NEOPLASM OF SP 10/22/1247 NEELAM LOPEZ MD Ot Z85.850 SP HISTORY OF MALIGNANT NEOPLASM O SP 10/22/1341 GARRETT BOBAN N Ot C50.412 SP NEOPLASM OF UPPER-OUTER QUADRANT O SP 10/22/1341 GARRETT, BOBAN N Ot E89.0 SP HYPOTHYROIDISM SP 10/22/1341 GARRETT, BOBAN N Ot Z17.0 SP RECEPTOR POSITIVE STATUS [ER+] SP 10/22/1341 GARRETT BOBAN N Ot Z51.11 SP FOR ANTINEOPLASTIC CHEMOTHERAP SP 10/22/1341 BRENDAN TUCKERAN N Ot Z79.899 SP PHARMACIST TECHNICIAN (CURRENT) DRUG THERAPY SP 10/22/1341 GARRETT BOBAN N Ot Z80.42 SP HISTORY OF MALIGNANT NEOPLASM OF SP 10/22/1341 GARRETT, BOBAN N Ot Z80.8 SP HISTORY OF MALIGNANT NEOPLASM OF SP 10/22/1341 GARRETT, BOBAN N Ot Z85.850 SP HISTORY OF MALIGNANT NEOPLASM O SP 11/10/2013 LUC BAZZI, CATALINA Gordon Ot 241.1 SP NONTOX MULTINODUL GOITER SP 04/24/2016 LUC BAZZI, CATALINA Gordon Ot Z01.818 SP ENCOUNTER FOR OTHER PREPROCEDURAL EXAMIN SP 04/25/2016 LUC BAZZI, CATALINA Gordon Ot Z01.818 SP ENCOUNTER FOR OTHER PREPROCEDURAL EXAMIN SP 04/28/2016 LUC BAZZI, CATALINA Gordon Ot K62.1 SP RECTAL POLYP SP 04/28/2016 LUC BAZZI, CATALINA Gordon Ot Z12.11 SP ENCOUNTER FOR SCREENING FOR MALIGNANT NE SP 04/28/2016 LUC BAZZI, CATALINA Gordon Ot Z80.0 SP FAMILY HISTORY OF MALIGNANT NEOPLASM OF SP 04/29/2016 LUC BAZZI, CATALINA Gordon Ot K62.1 SP RECTAL POLYP SP 04/29/2016 LUC BAZZI, CATALINA Gordon Ot Z12.11 SP ENCOUNTER FOR SCREENING FOR MALIGNANT NE SP 04/29/2016 LUC BAZZI, CATALINA Gordon Ot Z80.0 SP FAMILY HISTORY OF MALIGNANT NEOPLASM OF SP 05/04/2016 LUC BAZZI, CATALINA Gordon Ot K62.1 SP RECTAL POLYP SP 05/04/2016 LUC BAZZI, CATALINA Gordon Ot Z12.11 SP ENCOUNTER FOR SCREENING FOR MALIGNANT NE SP 05/04/2016 LUC BAZZI, CATALINA Gordon Ot Z80.0 SP FAMILY HISTORY OF MALIGNANT NEOPLASM OF SP 04/22/2017 VELASQUEZ DIANA MD Ot R00.2 SP PALPITATIONS SP 05/06/2017 VELASQUEZ DIANA MD Ot R00.2 SP PALPITATIONS SP 07/20/2017 VELASQUEZ DIANA MD Ot R00.2 SP PALPITATIONS SP 07/21/2017 VELASQUEZ DIANA MD Ot R00.2 SP PALPITATIONS SP 07/21/2017 VELASQUEZ DIANA MD Ot R00.2 SP PALPITATIONS SP 07/29/2017 SCOTT CURRAN COMPLIANCE MANAGER Ot 721.0 SP CERVICAL SPONDYLOSIS SP 07/29/2017 SCOTT CURRAN COMPLIANCE MANAGER Ot 733.90 SP BONE CARTILAGE DIS NOS SP 07/29/2017 SCOTT CURRAN COMPLIANCE MANAGER Ot V17.81 SP FAMILY HISTORY, OSTEOPOROSIS SP 07/29/2017 SCOTT CURRAN COMPLIANCE MANAGER Ot V76.12 SP OTH SCREEN MAMMO-MALIGN NEOPLASM OF DAVY SP 07/29/2017 SCOTT CURRAN COMPLIANCE MANAGER Ot V82.81 SP SCREENING FOR OSTEOPOROSIS SP 07/29/2017 VELASQUEZ DIANA MD Ot 241.0 SP NONTOX UNINODULAR GOITER SP 07/29/2017 LEBRON BAZZI, VELASQUEZ Taylor Ot 715.36 SP LOC OSTEOARTH NOS-L/LEG SP 07/29/2017 LEBRON BAZZI, VELASQUEZ Taylor Ot 719.45 SP JOINT PAIN-PELVIS SP 07/29/2017 LUC BAZZI, CATALINA Gordon Ot 241.0 SP NONTOX UNINODULAR GOITER SP 07/29/2017 LUC BAZZI, CATALINA Gordon Ot 245.2 SP CHR LYMPHOCYT THYROIDIT SP 07/29/2017 LUC BAZZI, CATALINA Gordon Ot 241.1 SP NONTOX MULTINODUL GOITER SP 07/29/2017 LUC BAZZI, CATALINA Gordon Ot V72.83 SP EXAM PRE-OPERATIVE NEC SP 07/29/2017 LUC BAZZI, CATLAINA Gordon Ot V74.8 SP SCREEN-BACTERIAL DIS NEC SP 07/29/2017 LEBRON BAZZI, VELASQUEZ Taylor Ot R00.2 SP PALPITATIONS SP 07/30/2017 SCOTT CURRAN COMPLIANCE MANAGER Ot N63 SP UNSPECIFIED LUMP IN BREAST SP 08/11/2017 SCOTT CURRAN COMPLIANCE MANAGER Ot 721.0 SP CERVICAL SPONDYLOSIS SP 08/11/2017 SCOTT CURRAN COMPLIANCE MANAGER Ot 733.90 SP BONE CARTILAGE DIS NOS SP 08/11/2017 SCOTT CURRAN COMPLIANCE MANAGER Ot V17.81 SP FAMILY HISTORY, OSTEOPOROSIS SP 08/11/2017 SCOTT CURRAN COMPLIANCE MANAGER Ot V76.12 SP OTH SCREEN MAMMO-MALIGN NEOPLASM OF DAVY SP 08/11/2017 SCOTT CURRAN COMPLIANCE MANAGER Ot V82.81 SP SCREENING FOR OSTEOPOROSIS SP 08/11/2017 LEBRON BAZZI, VELASQUEZ Taylor Ot 241.0 SP NONTOX UNINODULAR GOITER SP 08/11/2017 LEBRON BAZZI, VELASQUEZ Taylor Ot 715.36 SP LOC OSTEOARTH NOS-L/LEG SP 08/11/2017 LEBRON BAZZI, VELASQUEZ Taylor Ot 719.45 SP JOINT PAIN-PELVIS SP 08/11/2017 ULC BAZZI, CATALINA Gordon Ot 241.0 SP NONTOX UNINODULAR GOITER SP 08/11/2017 LUC BAZZI, CATALINA Gordon Ot 245.2 SP CHR LYMPHOCYT THYROIDIT SP 08/11/2017 LUC BAZZI, CATALINA Gordon Ot 241.1 SP NONTOX MULTINODUL GOITER SP 08/11/2017 LUC BAZZI, CATALINA M Ot V72.83 SP EXAM PRE-OPERATIVE NEC SP 08/11/2017 LUC BAZZI, CATALINA Gordon Ot V74.8 SP SCREEN-BACTERIAL DIS NEC SP 08/11/2017 LEBRON BAZZI, VELASQUEZ Taylor Ot R00.2 SP PALPITATIONS SP 08/11/2017 SCOTT CURRAN COMPLIANCE MANAGER Ot N63 SP UNSPECIFIED LUMP IN BREAST SP 08/11/2017 SCOTT CURRAN COMPLIANCE MANAGER Ot R92.8 SP OTH ABN AND INCONCLUSIVE FINDINGS ON DX SP 08/11/2017 SCOTT CURRAN COMPLIANCE MANAGER Ot R92.8 SP OTH ABN AND INCONCLUSIVE FINDINGS ON DX SP 08/12/2017 BRENDAN TUCKERAN N Ot C50.412 SP NEOPLASM OF UPPER-OUTER QUADRANT O SP 08/12/2017 GARRETT BOBMINDY N Ot E89.0 SP HYPOTHYROIDISM SP 08/12/2017 GARRETT, BOBAN N Ot Z17.0 SP RECEPTOR POSITIVE STATUS [ER+] SP 08/12/2017 GARRETT BOBAN N Ot Z79.899 SP LONGTERM (CURRENT) DRUG THERAPY SP 08/12/2017 GARRETT BOBAN N Ot Z80.42 SP HISTORY OF MALIGNANT NEOPLASM OF SP 08/12/2017 GARRETT BOBAN N Ot Z80.8 SP HISTORY OF MALIGNANT NEOPLASM OF SP 08/12/2017 GARRETT, BOBAN N Ot Z85.850 SP HISTORY OF MALIGNANT NEOPLASM O SP 08/13/2017 SCOTT CURRAN COMPLIANCE MANAGER Ot N63 SP UNSPECIFIED LUMP IN BREAST SP 08/13/2017 SCOTT CURRAN COMPLIANCE MANAGER Ot R92.8 SP OTH ABN AND INCONCLUSIVE FINDINGS ON DX SP 08/14/2017 JOSE TUCKER N Ot C50.412 SP NEOPLASM OF UPPER-OUTER QUADRANT O SP 08/14/2017 GARRETT BOBAN N Ot E89.0 SP HYPOTHYROIDISM SP 08/14/2017 GARRETT, BOBAN N Ot Z17.0 SP RECEPTOR POSITIVE STATUS [ER+] SP 08/14/2017 GARRETT BOBAN N Ot Z79.899 SP LONGTERM (CURRENT) DRUG THERAPY SP 08/14/2017 GARRETT BOBAN N Ot Z80.42 SP HISTORY OF MALIGNANT NEOPLASM OF SP 08/14/2017 GARRETT BOBAN N Ot Z80.8 SP HISTORY OF MALIGNANT NEOPLASM OF SP 08/14/2017 GARRETT, BOBAN N Ot Z85.850 SP HISTORY OF MALIGNANT NEOPLASM O SP 08/14/2017 JOSE TUCKER N Ot C50.412 SP NEOPLASM OF UPPER-OUTER QUADRANT O SP 08/14/2017 JOSE TUCKER N Ot E89.0 SP HYPOTHYROIDISM SP 08/14/2017 GARRETTJOSE BONDS N Ot Z17.0 SP RECEPTOR POSITIVE STATUS [ER+] SP 08/14/2017 JOSE TUCKER N Ot Z79.899 SP PHARMACIST TECHNICIAN (CURRENT) DRUG THERAPY SP 08/14/2017 GARRETTJOSE BONDS N Ot Z80.42 SP HISTORY OF MALIGNANT NEOPLASM OF SP 08/14/2017 GARRETTJOSE BONDS N Ot Z80.8 SP HISTORY OF MALIGNANT NEOPLASM OF SP 08/14/2017 GARRETT, BOBMINDY N Ot Z85.850 SP HISTORY OF MALIGNANT NEOPLASM O SP 08/17/2017 JOSE TUCKER N Ot C50.412 SP NEOPLASM OF UPPER-OUTER QUADRANT O SP 08/17/2017 JOSE TUCKER N Ot Z53.29 SP NOT CRD OUT BEC PT DECISION F SP 08/17/2017 JOSE TUCKER N Ot C50.412 SP NEOPLASM OF UPPER-OUTER QUADRANT O SP 08/17/2017 JOSE TUCKER N Ot E89.0 SP HYPOTHYROIDISM SP 08/17/2017 GARRETTJOSE BONDS N Ot Z17.0 SP RECEPTOR POSITIVE STATUS [ER+] SP 08/17/2017 JOSE TUCKER N Ot Z79.899 SP LONGTERM (CURRENT) DRUG THERAPY SP 08/17/2017 JOSE TUCKER N Ot Z80.42 SP HISTORY OF MALIGNANT NEOPLASM OF SP 08/17/2017 JOSE TUCKER N Ot Z80.8 SP HISTORY OF MALIGNANT NEOPLASM OF SP 08/17/2017 GARRETT BOBAN N Ot Z85.850 SP HISTORY OF MALIGNANT NEOPLASM O SP 08/17/2017 SCOTT CURRAN COMPLIANCE MANAGER Ot 721.0 SP CERVICAL SPONDYLOSIS SP 08/17/2017 SCOTT CURRAN COMPLIANCE MANAGER Ot 733.90 SP BONE CARTILAGE DIS NOS SP 08/17/2017 SCOTT CURRAN COMPLIANCE MANAGER Ot V17.81 SP FAMILY HISTORY, OSTEOPOROSIS SP 08/17/2017 SCOTT CURRAN COMPLIANCE MANAGER Ot V76.12 SP OTH SCREEN MAMMO-MALIGN NEOPLASM OF DAVY SP 08/17/2017 SCOTT CURRAN COMPLIANCE MANAGER Ot V82.81 SP SCREENING FOR OSTEOPOROSIS SP 08/17/2017 LEBRON BAZZI, VELASQUEZ Taylor Ot 241.0 SP NONTOX UNINODULAR GOITER SP 08/17/2017 LEBRON BAZZI, VELASQUEZ Taylor Ot 715.36 SP LOC OSTEOARTH NOS-L/LEG SP 08/17/2017 LEBRON BAZZI, VELASQUEZ Taylor Ot 719.45 SP JOINT PAIN-PELVIS SP 08/17/2017 LUC BAZZI, CATALINA Gordon Ot 241.0 SP NONTOX UNINODULAR GOITER SP 08/17/2017 LUC BAZZI, CATALINA Gordon Ot 245.2 SP CHR LYMPHOCYT THYROIDIT SP 08/17/2017 LUC BAZZI, CATALINA Gordon Ot 241.1 SP NONTOX MULTINODUL GOITER SP 08/17/2017 LUC BAZZI, CATALINA Gordon Ot V72.83 SP EXAM PRE-OPERATIVE NEC SP 08/17/2017 LUC BAZZI, CATALINA Gordon Ot V74.8 SP SCREEN-BACTERIAL DIS NEC SP 08/17/2017 LEBRON BAZZI, VELASQUEZ Taylor Ot R00.2 SP PALPITATIONS SP 08/17/2017 SCOTT CURRAN COMPLIANCE MANAGER Ot N63 SP UNSPECIFIED LUMP IN BREAST SP 08/17/2017 SCOTT CURRAN COMPLIANCE MANAGER Ot R92.8 SP OTH ABN AND INCONCLUSIVE FINDINGS ON DX SP 08/17/2017 SCOTT CURRAN COMPLIANCE MANAGER Ot R92.8 SP OTH ABN AND INCONCLUSIVE FINDINGS ON DX SP 08/17/2017 LEBRON BAZZI, VELASQUEZ Taylor Ot C50.911 SP MALIGNANT NEOPLASM OF UNSP SITE OF RIGHT SP 08/17/2017 VELASQUEZ DIANA MD Ot C50.912 SP MALIGNANT NEOPLASM OF UNSPECIFIED SITE O SP 08/17/2017 JOSE TUCKER Ot C50.412 SP NEOPLASM OF UPPER-OUTER QUADRANT O SP 08/17/2017 JOSE TUCKER Ot E89.0 SP HYPOTHYROIDISM SP 08/17/2017 JOSE TUCKER Ot Z17.0 SP RECEPTOR POSITIVE STATUS [ER+] SP 08/17/2017 JOSE TUCKER Ot Z79.899 SP PHARMACIST TECHNICIAN (CURRENT) DRUG THERAPY SP 08/17/2017 JOSE TUCKER Ot Z80.42 SP HISTORY OF MALIGNANT NEOPLASM OF SP 08/17/2017 GARRETT, BOBAN N Ot Z80.8 SP HISTORY OF MALIGNANT NEOPLASM OF SP 08/17/2017 JOSE TUCKER N Ot Z85.850 SP HISTORY OF MALIGNANT NEOPLASM O SP 08/17/2017 JOSE TUCKER N Ot C50.412 SP NEOPLASM OF UPPER-OUTER QUADRANT O SP 08/17/2017 JOSE TUCKER N Ot Z53.29 SP NOT CRD OUT BEC PT DECISION F SP 08/18/2017 SCOTT CURRAN Ot R92.8 SP OTH ABN AND INCONCLUSIVE FINDINGS ON DX SP 08/18/2017 LEBRON BAZZI, VELASQUEZ Taylor Ot R00.2 SP PALPITATIONS SP 08/18/2017 JOSE TUCKER N Ot C50.412 SP NEOPLASM OF UPPER-OUTER QUADRANT O SP 08/18/2017 JOSE TUCKER N Ot E89.0 SP HYPOTHYROIDISM SP 08/18/2017 JOSE TUCKER N Ot Z17.0 SP RECEPTOR POSITIVE STATUS [ER+] SP 08/18/2017 JOSE TUCKER N Ot Z79.899 SP PHARMACIST TECHNICIAN (CURRENT) DRUG THERAPY SP 08/18/2017 JOSE TUCKER N Ot Z80.42 SP HISTORY OF MALIGNANT NEOPLASM OF SP 08/18/2017 JOSE TUCKER N Ot Z80.8 SP HISTORY OF MALIGNANT NEOPLASM OF SP 08/18/2017 JOSE TUCKER N Ot Z85.850 SP HISTORY OF MALIGNANT NEOPLASM O SP 08/18/2017 LUC BAZZI, CATALINA Gordon Ot C50.912 SP MALIGNANT NEOPLASM OF UNSPECIFIED SITE O SP 08/18/2017 LUC BAZZI, CATALINA Gordon Ot Z01.818 SP ENCOUNTER FOR OTHER PREPROCEDURAL EXAMIN SP 08/18/2017 JOSE TUCKER N Ot C50.412 SP NEOPLASM OF UPPER-OUTER QUADRANT O SP 08/18/2017 JOSE TUCKER N Ot Z53.29 SP NOT CRD OUT BEC PT DECISION F SP 08/18/2017 JOSE TUCKER N Ot C50.412 SP NEOPLASM OF UPPER-OUTER QUADRANT O SP 08/18/2017 GARRETTJOSE BONDS N Ot Z53.29 SP NOT CRD OUT BEC PT DECISION F SP 08/19/2017 GARRETTJOSE BONDS N Ot C50.412 SP NEOPLASM OF UPPER-OUTER QUADRANT O SP 08/19/2017 GARRETTJOSE BONDS N Ot Z53.29 SP NOT CRD OUT BEC PT DECISION F SP 08/19/2017 LEBRON BAZZI, VELASQUEZ Taylor Ot C50.911 SP MALIGNANT NEOPLASM OF UNSP SITE OF RIGHT SP 08/19/2017 LEBRON BAZZI, VELASQUEZ Taylor Ot C50.912 SP MALIGNANT NEOPLASM OF UNSPECIFIED SITE O SP 08/19/2017 JOSE TUCKER N Ot C50.412 SP NEOPLASM OF UPPER-OUTER QUADRANT O SP 08/19/2017 GARRETTJOSE BONDS N Ot Z53.29 SP NOT CRD OUT BEC PT DECISION F SP 08/19/2017 LUC BAZZI, CATALINA Gordon Ot C50.912 SP MALIGNANT NEOPLASM OF UNSPECIFIED SITE O SP 08/19/2017 LUC BAZZI, CATALINA Gordon Ot E03.9 SP HYPOTHYROIDISM, UNSPECIFIED SP 08/19/2017 LUC BAZZI, CATALINA Gordon Ot Z79.899 SP OTHER PHARMACIST TECHNICIAN (CURRENT) DRUG THERAPY SP 08/20/2017 JOSE TUCKER N Ot C50.412 SP NEOPLASM OF UPPER-OUTER QUADRANT O SP 08/20/2017 GARRETTJOSE BONDS N Ot Z53.29 SP NOT CRD OUT BEC PT DECISION F SP 08/20/2017 LUC BAZZI, CATALINA Gordon Ot C50.912 SP MALIGNANT NEOPLASM OF UNSPECIFIED SITE O SP 08/20/2017 LUC BAZZI, CATALINA Gordon Ot E03.9 SP HYPOTHYROIDISM, UNSPECIFIED SP 08/20/2017 LUC BAZZI, CATALINA Gordon Ot Z79.899 SP OTHER PHARMACIST TECHNICIAN (CURRENT) DRUG THERAPY SP 08/22/2017 JOSE TUCKER N Ot C50.412 SP NEOPLASM OF UPPER-OUTER QUADRANT O SP 08/22/2017 GARRETTJOSE BONDS N Ot E89.0 SP HYPOTHYROIDISM SP 08/22/2017 GARRETT, BOBAN N Ot Z17.0 SP RECEPTOR POSITIVE STATUS [ER+] SP 08/22/2017 GARRETTBRENDAN BONDSAN N Ot Z79.899 SP PHARMACIST TECHNICIAN (CURRENT) DRUG THERAPY SP 08/22/2017 GARRETT, BRENDANAN N Ot Z80.42 SP HISTORY OF MALIGNANT NEOPLASM OF SP 08/22/2017 GARRETT, BOBAN N Ot Z80.8 SP HISTORY OF MALIGNANT NEOPLASM OF SP 08/22/2017 GARRETT, BRENDANAN N Ot Z85.850 SP HISTORY OF MALIGNANT NEOPLASM O SP 08/26/2017 LEBRON BAZZI, VELASQUEZ Taylor Ot C50.912 SP MALIGNANT NEOPLASM OF UNSPECIFIED SITE O SP 08/26/2017 GARRETT, BOBAN N Ot C50.412 SP NEOPLASM OF UPPER-OUTER QUADRANT O SP 08/26/2017 GARRETT, BOBAN N Ot E89.0 SP HYPOTHYROIDISM SP 08/26/2017 GARRETT, BOBAN N Ot Z17.0 SP RECEPTOR POSITIVE STATUS [ER+] SP 08/26/2017 GARRETT, BOBAN N Ot Z79.899 SP LONGTERM (CURRENT) DRUG THERAPY SP 08/26/2017 GARRETT, BOBAN N Ot Z80.42 SP HISTORY OF MALIGNANT NEOPLASM OF SP 08/26/2017 GARRETT, BOBAN N Ot Z80.8 SP HISTORY OF MALIGNANT NEOPLASM OF SP 08/26/2017 GARRETT, BOBAN N Ot Z85.850 SP HISTORY OF MALIGNANT NEOPLASM O SP 08/27/2017 GARRETT, BOBAN N Ot C50.412 SP NEOPLASM OF UPPER-OUTER QUADRANT O SP 08/27/2017 GARRETT, BOBAN N Ot E89.0 SP HYPOTHYROIDISM SP 08/27/2017 GARRETT, BOBAN N Ot Z17.0 SP RECEPTOR POSITIVE STATUS [ER+] SP 08/27/2017 GARRETT, BOBAN N Ot Z79.899 SP PHARMACIST TECHNICIAN (CURRENT) DRUG THERAPY SP 08/27/2017 GARRETT, BOBAN N Ot Z80.42 SP HISTORY OF MALIGNANT NEOPLASM OF SP 08/27/2017 GARRETT, BOBAN N Ot Z80.8 SP HISTORY OF MALIGNANT NEOPLASM OF SP 08/27/2017 GARRETT, BOBAN N Ot Z85.850 SP HISTORY OF MALIGNANT NEOPLASM O SP 08/27/2017 GARRETT, BOBAN N Ot C50.412 SP NEOPLASM OF UPPER-OUTER QUADRANT O SP 08/27/2017 GARRETT, BOBAN N Ot E89.0 SP HYPOTHYROIDISM SP 08/27/2017 GARRETT, BOBAN N Ot Z17.0 SP RECEPTOR POSITIVE STATUS [ER+] SP 08/27/2017 GARRETT, BOBAN N Ot Z79.899 SP LONGTERM (CURRENT) DRUG THERAPY SP 08/27/2017 GARRETT, BOBAN N Ot Z80.42 SP HISTORY OF MALIGNANT NEOPLASM OF SP 08/27/2017 GARRETT, BOBAN N Ot Z80.8 SP HISTORY OF MALIGNANT NEOPLASM OF SP 08/27/2017 GARRETT, BOBAN N Ot Z85.850 SP HISTORY OF MALIGNANT NEOPLASM O SP 09/10/2017 JOSE TUCKER N Ot C50.412 SP NEOPLASM OF UPPER-OUTER QUADRANT O SP 09/10/2017 JOSE TUCKER N Ot E89.0 SP HYPOTHYROIDISM SP 09/10/2017 JOSE TUCKER N Ot Z17.0 SP RECEPTOR POSITIVE STATUS [ER+] SP 09/10/2017 JOSE TUCKER N Ot Z79.899 SP PHARMACIST TECHNICIAN (CURRENT) DRUG THERAPY SP 09/10/2017 JOSE TUCKER N Ot Z80.42 SP HISTORY OF MALIGNANT NEOPLASM OF SP 09/10/2017 GARRETTJOSE BONDS N Ot Z80.8 SP HISTORY OF MALIGNANT NEOPLASM OF SP 09/10/2017 GARRETTJOSE BONDS N Ot Z85.850 SP HISTORY OF MALIGNANT NEOPLASM O SP 09/23/2017 JOSE TUCKER Ot C50.412 SP NEOPLASM OF UPPER-OUTER QUADRANT O SP 09/23/2017 JOSE TUCKER N Ot E89.0 SP HYPOTHYROIDISM SP 09/23/2017 JOSE TUCKER N Ot Z17.0 SP RECEPTOR POSITIVE STATUS [ER+] SP 09/23/2017 JOSE TUCKER N Ot Z51.11 SP FOR ANTINEOPLASTIC CHEMOTHERAP SP 09/23/2017 JOSE TUCKER N Ot Z79.899 SP LONGTERM (CURRENT) DRUG THERAPY SP 09/23/2017 JOSE TUCKER N Ot Z80.42 SP HISTORY OF MALIGNANT NEOPLASM OF SP 09/23/2017 JOSE TUCKER N Ot Z80.8 SP HISTORY OF MALIGNANT NEOPLASM OF SP 09/23/2017 JOSE TUCKER N Ot Z85.850 SP HISTORY OF MALIGNANT NEOPLASM O SP 09/25/2017 NEELAM LOPEZ MD Ot C50.412 SP NEOPLASM OF UPPER-OUTER QUADRANT O SP 09/25/2017 NEELAM LOPEZ MD Ot E89.0 SP HYPOTHYROIDISM SP 09/25/2017 NEELAM LOPEZ MD Ot Z17.0 SP RECEPTOR POSITIVE STATUS [ER+] SP 09/25/2017 NEELAM LOPEZ MD Ot Z79.899 SP LONGTERM (CURRENT) DRUG THERAPY SP 09/25/2017 NEELAM LOPEZ MD Ot Z80.42 SP HISTORY OF MALIGNANT NEOPLASM OF SP 09/25/2017 NEELAM LOPEZ MD Ot Z80.8 SP HISTORY OF MALIGNANT NEOPLASM OF SP 09/25/2017 NEELAM LOPEZ MD Ot Z85.850 SP HISTORY OF MALIGNANT NEOPLASM O SP 10/08/2017 NEELAM LOPEZ MD Ot C50.412 SP NEOPLASM OF UPPER-OUTER QUADRANT O SP 10/08/2017 NEELAM LOPEZ MD Ot E89.0 SP HYPOTHYROIDISM SP 10/08/2017 NEELAM LOPEZ MD Ot Z17.0 SP RECEPTOR POSITIVE STATUS [ER+] SP 10/08/2017 NEELAM LOPEZ MD Ot Z79.899 SP PHARMACIST TECHNICIAN (CURRENT) DRUG THERAPY SP 10/08/2017 NEELAM LOPEZ MD Ot Z80.42 SP HISTORY OF MALIGNANT NEOPLASM OF SP 10/08/2017 NEELAM LOPEZ MD Ot Z80.8 SP HISTORY OF MALIGNANT NEOPLASM OF SP 10/08/2017 NEELAM LOPEZ MD Ot Z85.850 SP HISTORY OF MALIGNANT NEOPLASM O SP 10/19/2017 NEELAM LOPEZ MD Ot C50.412 SP NEOPLASM OF UPPER-OUTER QUADRANT O SP 10/19/2017 NEELAM LOPEZ MD Ot E89.0 SP HYPOTHYROIDISM SP 10/19/2017 NEELAM LOPEZ MD Ot Z17.0 SP RECEPTOR POSITIVE STATUS [ER+] SP 10/19/2017 NEELAM LOPEZ MD Ot Z51.11 SP FOR ANTINEOPLASTIC CHEMOTHERAP SP 10/19/2017 NEELAM LOPEZ MD Ot Z79.899 SP LONGTERM (CURRENT) DRUG THERAPY SP 10/19/2017 NEELAM LOPEZ MD Ot Z80.42 SP HISTORY OF MALIGNANT NEOPLASM OF SP 10/19/2017 NEELAM LOPEZ MD Ot Z80.8 SP HISTORY OF MALIGNANT NEOPLASM OF SP 10/19/2017 NEELAM LOPEZ MD Ot Z85.850 SP HISTORY OF MALIGNANT NEOPLASM O SP 10/22/2017 JOSE TUCKER Ot C50.412 SP NEOPLASM OF UPPER-OUTER QUADRANT O SP 10/22/2017 JOSE TUCKER Ot E89.0 SP HYPOTHYROIDISM SP 10/22/2017 JOSE TUCKER N Ot Z17.0 SP RECEPTOR POSITIVE STATUS [ER+] SP 10/22/2017 JOSE TUCKER N Ot Z79.899 SP LONGTERM (CURRENT) DRUG THERAPY SP 10/22/2017 JOSE TUCKER N Ot Z80.42 SP HISTORY OF MALIGNANT NEOPLASM OF SP 10/22/2017 JOSE TUCKER Ot Z80.8 SP HISTORY OF MALIGNANT NEOPLASM OF SP 10/22/2017 JOSE TUCKER Ot Z85.850 SP HISTORY OF MALIGNANT NEOPLASM O SP 10/22/2017 LEBRON BAZZI, VELASQUEZ A Ot R00.2 SP PALPITATIONS SP 11/06/2017 GARRETT, BOBAN N Ot C50.412 SP NEOPLASM OF UPPER-OUTER QUADRANT O SP 11/06/2017 GARRETT, BOBAN N Ot E89.0 SP HYPOTHYROIDISM SP 11/06/2017 GARRETT, BOBAN N Ot Z17.0 SP RECEPTOR POSITIVE STATUS [ER+] SP 11/06/2017 GARRETT, BOBAN N Ot Z79.899 SP PHARMACIST TECHNICIAN (CURRENT) DRUG THERAPY SP 11/06/2017 GARRETT, BOBAN N Ot Z80.42 SP HISTORY OF MALIGNANT NEOPLASM OF SP 11/06/2017 GARRETT, BOBAN N Ot Z80.8 SP HISTORY OF MALIGNANT NEOPLASM OF SP 11/06/2017 GARRETT, BOBAN N Ot Z85.850 SP HISTORY OF MALIGNANT NEOPLASM O SP 11/06/2017 ELSA DEE COMPLIANCE MANAGER Ot C50.412 SP MALIG NEOPLASM OF UPPER-OUTER QUADRANT O SP 12/03/2017 GARRETT, BOBAN N Ot C50.412 SP NEOPLASM OF UPPER-OUTER QUADRANT O SP 12/03/2017 GARRETT, BOBAN N Ot E89.0 SP HYPOTHYROIDISM SP 12/03/2017 GARRETT, BOBAN N Ot Z17.0 SP RECEPTOR POSITIVE STATUS [ER+] SP 12/03/2017 GARRETT, BOBAN N Ot Z79.899 SP PHARMACIST TECHNICIAN (CURRENT) DRUG THERAPY SP 12/03/2017 GARRETT, BOBAN N Ot Z80.42 SP HISTORY OF MALIGNANT NEOPLASM OF SP 12/03/2017 GARRETT, BOBAN N Ot Z80.8 SP HISTORY OF MALIGNANT NEOPLASM OF SP 12/03/2017 GARRETT, BOBAN N Ot Z85.850 SP HISTORY OF MALIGNANT NEOPLASM O SP 12/24/2017 GARRETT, BOBAN N Ot C50.412 SP NEOPLASM OF UPPER-OUTER QUADRANT O SP 12/24/2017 GARRETT, BOBAN N Ot E89.0 SP HYPOTHYROIDISM SP 12/24/2017 GARRETT, BOBAN N Ot Z17.0 SP RECEPTOR POSITIVE STATUS [ER+] SP 12/24/2017 GARRETT, BOBAN N Ot Z79.899 SP PHARMACIST TECHNICIAN (CURRENT) DRUG THERAPY SP 12/24/2017 GARRETT, BOBAN N Ot Z80.42 SP HISTORY OF MALIGNANT NEOPLASM OF SP 12/24/2017 GARRETTJOSE BONDS William Ot Z80.8 SP HISTORY OF MALIGNANT NEOPLASM OF SP 12/24/2017 GARRETTJOSE BONDS William Ot Z85.850 SP HISTORY OF MALIGNANT NEOPLASM O SP 12/24/2017 NEELAM LOPEZ MD Ot C50.412 SP NEOPLASM OF UPPER-OUTER QUADRANT O SP 12/24/2017 NEELAM LOPEZ MD Ot E89.0 SP HYPOTHYROIDISM SP 12/24/2017 NEELAM LOPEZ MD Ot Z17.0 SP RECEPTOR POSITIVE STATUS [ER+] SP 12/24/2017 NEELAM LOPEZ MD Ot Z79.899 SP PHARMACIST TECHNICIAN (CURRENT) DRUG THERAPY SP 12/24/2017 NEELAM LOPEZ MD Ot Z80.42 SP HISTORY OF MALIGNANT NEOPLASM OF SP 12/24/2017 NEELAM LOPEZ MD Ot Z80.8 SP HISTORY OF MALIGNANT NEOPLASM OF SP 12/24/2017 NEELAM LOPEZ MD Ot Z85.850 SP HISTORY OF MALIGNANT NEOPLASM O SP 12/25/2017 NEELAM LOPEZ MD Ot C50.412 SP NEOPLASM OF UPPER-OUTER QUADRANT O SP 12/25/2017 NEELAM LOPEZ MD Ot E89.0 SP HYPOTHYROIDISM SP 12/25/2017 NEELAM LOPEZ MD Ot Z17.0 SP RECEPTOR POSITIVE STATUS [ER+] SP 12/25/2017 NEELAM LOPEZ MD Ot Z79.899 SP PHARMACIST TECHNICIAN (CURRENT) DRUG THERAPY SP 12/25/2017 NEELAM LOPEZ MD Ot Z80.42 SP HISTORY OF MALIGNANT NEOPLASM OF SP 12/25/2017 NEELAM LOPEZ MD Ot Z80.8 SP HISTORY OF MALIGNANT NEOPLASM OF SP 12/25/2017 NEELAM LOPEZ MD Ot Z85.850 SP HISTORY OF MALIGNANT NEOPLASM O SP 01/12/2018 NEELAM LOPEZ MD Ot C50.412 SP NEOPLASM OF UPPER-OUTER QUADRANT O SP 01/12/2018 ENELAM LOPEZ MD Ot E89.0 SP HYPOTHYROIDISM SP 01/12/2018 NEELAM LOPEZ MD Ot Z17.0 SP RECEPTOR POSITIVE STATUS [ER+] SP 01/12/2018 NEELAM LOPEZ MD Ot Z51.11 SP FOR ANTINEOPLASTIC CHEMOTHERAP SP 01/12/2018 NEELAM LOPEZ MD Ot Z79.899 SP PHARMACIST TECHNICIAN (CURRENT) DRUG THERAPY SP 01/12/2018 NEELAM LOPEZ MD Ot Z80.42 SP HISTORY OF MALIGNANT NEOPLASM OF SP 01/12/2018 NEELAM LOPEZ MD Ot Z80.8 SP HISTORY OF MALIGNANT NEOPLASM OF SP 01/12/2018 NEELAM LOPEZ MD Ot Z85.850 SP HISTORY OF MALIGNANT NEOPLASM O SP 01/12/2018 GARRETT, BOBAN N Ot C50.412 SP NEOPLASM OF UPPER-OUTER QUADRANT O SP 01/12/2018 GARRETT, BOBAN N Ot E89.0 SP HYPOTHYROIDISM SP 01/12/2018 GARRETT, BOBAN N Ot Z17.0 SP RECEPTOR POSITIVE STATUS [ER+] SP 01/12/2018 GARRETT, BOBAN N Ot Z51.11 SP FOR ANTINEOPLASTIC CHEMOTHERAP SP 01/12/2018 GARRETT, BOBAN N Ot Z79.899 SP PHARMACIST TECHNICIAN (CURRENT) DRUG THERAPY SP 01/12/2018 GARRETT, BOBAN N Ot Z80.42 SP HISTORY OF MALIGNANT NEOPLASM OF SP 01/12/2018 GARRETT, BOBAN N Ot Z80.8 SP HISTORY OF MALIGNANT NEOPLASM OF SP 01/12/2018 GARRETT, BOBAN N Ot Z85.850 SP HISTORY OF MALIGNANT NEOPLASM O SP 01/26/2018 GARRETT, BOBAN N Ot C50.412 SP NEOPLASM OF UPPER-OUTER QUADRANT O SP 01/26/2018 GARRETT, BOBAN N Ot E89.0 SP HYPOTHYROIDISM SP 01/26/2018 GARRETT, BOBAN N Ot Z17.0 SP RECEPTOR POSITIVE STATUS [ER+] SP 01/26/2018 GARRETT, BOBAN N Ot Z51.11 SP FOR ANTINEOPLASTIC CHEMOTHERAP SP 01/26/2018 GARRETT, BOBAN N Ot Z79.899 SP PHARMACIST TECHNICIAN (CURRENT) DRUG THERAPY SP 01/26/2018 GARRETT, BOBAN N Ot Z80.42 SP HISTORY OF MALIGNANT NEOPLASM OF SP 01/26/2018 GARRETT, BOBAN N Ot Z80.8 SP HISTORY OF MALIGNANT NEOPLASM OF SP 01/26/2018 GARRETT, BOBAN N Ot Z85.850 SP HISTORY OF MALIGNANT NEOPLASM O SP 02/05/2018 GARRETT, BOBAN N Ot C50.412 SP NEOPLASM OF UPPER-OUTER QUADRANT O SP 02/05/2018 GARRETT, BOBAN N Ot E89.0 SP HYPOTHYROIDISM SP 02/05/2018 GARRETT, BOBAN N Ot Z17.0 SP RECEPTOR POSITIVE STATUS [ER+] SP 02/05/2018 GARRETT, BOBAN N Ot Z79.899 SP PHARMACIST TECHNICIAN (CURRENT) DRUG THERAPY SP 02/05/2018 GARRETT, BOBAN N Ot Z80.42 SP HISTORY OF MALIGNANT NEOPLASM OF SP 02/05/2018 GARRETTJOSE BONDS N Ot Z80.8 SP HISTORY OF MALIGNANT NEOPLASM OF SP 02/05/2018 GARRETT, BRENDANAN N Ot Z85.850 SP HISTORY OF MALIGNANT NEOPLASM O SP 02/16/2018 GARRETTBRENDAN BONDSAN N Ot C50.412 SP NEOPLASM OF UPPER-OUTER QUADRANT O SP 02/16/2018 GARRETT, BOBAN N Ot E89.0 SP HYPOTHYROIDISM SP 02/16/2018 GARRETT, BRENDANAN N Ot Z17.0 SP RECEPTOR POSITIVE STATUS [ER+] SP 02/16/2018 GARRETT, BOBAN N Ot Z79.899 SP LONGTERM (CURRENT) DRUG THERAPY SP 02/16/2018 GARRETT, BOBAN N Ot Z80.42 SP HISTORY OF MALIGNANT NEOPLASM OF SP 02/16/2018 GARRETT, JOSE N Ot Z80.8 SP HISTORY OF MALIGNANT NEOPLASM OF SP 02/16/2018 GARRETTJOSE BONDS N Ot Z85.850 SP HISTORY OF MALIGNANT NEOPLASM O SP 04/14/2018 GARRETT BOBAN N Ot C50.412 SP NEOPLASM OF UPPER-OUTER QUADRANT O SP 04/14/2018 GARRETT, JOSE N Ot E89.0 SP HYPOTHYROIDISM SP 04/14/2018 GARRETT, JOSE N Ot Z17.0 SP RECEPTOR POSITIVE STATUS [ER+] SP 04/14/2018 GARRETT, BOBAN N Ot Z79.899 SP PHARMACIST TECHNICIAN (CURRENT) DRUG THERAPY SP 04/14/2018 GARRETTBRENDANAN N Ot Z80.42 SP HISTORY OF MALIGNANT NEOPLASM OF SP 04/14/2018 GARRETT, BRENDANAN N Ot Z80.8 SP HISTORY OF MALIGNANT NEOPLASM OF SP 04/14/2018 GARRETT, BOBAN N Ot Z85.850 SP HISTORY OF MALIGNANT NEOPLASM O SP 04/15/2018 GARRETT, BOBAN N Ot C50.412 SP NEOPLASM OF UPPER-OUTER QUADRANT O SP 04/15/2018 GARRETT, BOBAN N Ot E89.0 SP HYPOTHYROIDISM SP 04/15/2018 GARRETT, BOBAN N Ot Z17.0 SP RECEPTOR POSITIVE STATUS [ER+] SP 04/15/2018 GARRETT, BOBAN N Ot Z79.899 SP LONGTERM (CURRENT) DRUG THERAPY SP 04/15/2018 GARRETTJOSE BONDS N Ot Z80.42 SP HISTORY OF MALIGNANT NEOPLASM OF SP 04/15/2018 GARRETTJOSE BONDS N Ot Z80.8 SP HISTORY OF MALIGNANT NEOPLASM OF SP 04/15/2018 GARRETT, BOBAN N Ot Z85.850 SP HISTORY OF MALIGNANT NEOPLASM O SP 04/15/2018 GARRETT, BOBAN N Ot C50.412 SP NEOPLASM OF UPPER-OUTER QUADRANT O SP 04/15/2018 GARRETT BOBAN N Ot E89.0 SP HYPOTHYROIDISM SP 04/15/2018 GARRETT, BOBAN N Ot Z17.0 SP RECEPTOR POSITIVE STATUS [ER+] SP 04/15/2018 GARRETTBRENDANAN N Ot Z51.0 SP FOR ANTINEOPLASTIC RADIATION T SP 04/15/2018 GARRETTBRENDAN BONDSAN N Ot Z79.899 SP PHARMACIST TECHNICIAN (CURRENT) DRUG THERAPY SP 04/15/2018 GARRETT, BOBAN N Ot Z80.42 SP HISTORY OF MALIGNANT NEOPLASM OF SP 04/15/2018 GARRETT, BOBAN N Ot Z80.8 SP HISTORY OF MALIGNANT NEOPLASM OF SP 04/15/2018 GARRETT, BRENDANAN N Ot Z85.850 SP HISTORY OF MALIGNANT NEOPLASM O SP 05/05/2018 GARRETT, BOBAN N Ot C50.412 SP NEOPLASM OF UPPER-OUTER QUADRANT O SP 05/05/2018 GARRETT BOBAN N Ot E89.0 SP HYPOTHYROIDISM SP 05/05/2018 GARRETT, BOBAN N Ot Z17.0 SP RECEPTOR POSITIVE STATUS [ER+] SP 05/05/2018 GARRETTBRENDANAN N Ot Z79.899 SP LONGTERM (CURRENT) DRUG THERAPY SP 05/05/2018 GARRETT, BRENDANAN N Ot Z80.42 SP HISTORY OF MALIGNANT NEOPLASM OF SP 05/05/2018 GARRETT, BOBAN N Ot Z80.8 SP HISTORY OF MALIGNANT NEOPLASM OF SP 05/05/2018 GARRETT, BOBAN N Ot Z85.850 SP HISTORY OF MALIGNANT NEOPLASM O SP 06/03/2018 GARRETT, BOBAN N Ot C50.412 SP NEOPLASM OF UPPER-OUTER QUADRANT O SP 06/03/2018 GARRETT, BOBAN N Ot E89.0 SP HYPOTHYROIDISM SP 06/03/2018 GARRETT, BOBAN N Ot Z17.0 SP RECEPTOR POSITIVE STATUS [ER+] SP 06/03/2018 GARRETT, BOBAN N Ot Z51.0 SP FOR ANTINEOPLASTIC RADIATION T SP 06/03/2018 JOSE TUCKER N Ot Z79.899 SP LONGTERM (CURRENT) DRUG THERAPY SP 06/03/2018 JOSE TUCKER N Ot Z80.42 SP HISTORY OF MALIGNANT NEOPLASM OF SP 06/03/2018 JOSE TUCKER N Ot Z80.8 SP HISTORY OF MALIGNANT NEOPLASM OF SP 06/03/2018 JOSE TUCKER N Ot Z85.850 SP HISTORY OF MALIGNANT NEOPLASM O SP 06/16/2018 ELSA DEE COMPLIANCE MANAGER Ot C50.412 SP MALIG NEOPLASM OF UPPER-OUTER QUADRANT O SP 06/16/2018 ELSA DEE COMPLIANCE MANAGER Ot M85.88 SP OTH DISRD OF BONE DENSITY AND STRUCTURE, SP 06/16/2018 ELSA DEE COMPLIANCE MANAGER Ot Z13.820 SP ENCOUNTER FOR SCREENING FOR OSTEOPOROSIS SP 06/21/2018 JOSE TUCKER Ot C50.412 SP NEOPLASM OF UPPER-OUTER QUADRANT O SP 06/21/2018 GARRETTJOSE BONDS N Ot E89.0 SP HYPOTHYROIDISM SP 06/21/2018 JOSE TUCKER N Ot Z17.0 SP RECEPTOR POSITIVE STATUS [ER+] SP 06/21/2018 GARRETTJOSE BONDS N Ot Z51.0 SP FOR ANTINEOPLASTIC RADIATION T SP 06/21/2018 JOSE TUCKER N Ot Z79.899 SP LONGTERM (CURRENT) DRUG THERAPY SP 06/21/2018 JOSE TUCKER N Ot Z80.42 SP HISTORY OF MALIGNANT NEOPLASM OF SP 06/21/2018 JOSE TUCKER N Ot Z80.8 SP HISTORY OF MALIGNANT NEOPLASM OF SP 06/21/2018 JOSE TUCKER N Ot Z85.850 SP HISTORY OF MALIGNANT NEOPLASM O SP 07/14/2018 GARRETT, JOSE N Ot C50.412 SP NEOPLASM OF UPPER-OUTER QUADRANT O SP 07/14/2018 GARRETTJOSE N Ot E89.0 SP HYPOTHYROIDISM SP 07/14/2018 GARRETT BOBMINDY N Ot Z17.0 SP RECEPTOR POSITIVE STATUS [ER+] SP 07/14/2018 GARRETTJOSE BONDS N Ot Z51.0 SP FOR ANTINEOPLASTIC RADIATION T SP 07/14/2018 GARRETT, JOSE N Ot Z79.899 SP PHARMACIST TECHNICIAN (CURRENT) DRUG THERAPY SP 07/14/2018 JOSE TUCKER William Ot Z80.42 SP HISTORY OF MALIGNANT NEOPLASM OF SP 07/14/2018 JOSE TUCKER N Ot Z80.8 SP HISTORY OF MALIGNANT NEOPLASM OF SP 07/14/2018 JOSE TUCKER N Ot Z85.850 SP HISTORY OF MALIGNANT NEOPLASM O SP 07/15/2018 JOSE TUCKER William Ot C50.412 SP NEOPLASM OF UPPER-OUTER QUADRANT O SP 07/15/2018 JOSE TUCKER William Ot E89.0 SP HYPOTHYROIDISM SP 07/15/2018 JOSE TUCKER William Ot Z17.0 SP RECEPTOR POSITIVE STATUS [ER+] SP 07/15/2018 JOSE TUCKER N Ot Z51.0 SP FOR ANTINEOPLASTIC RADIATION T SP 07/15/2018 JOSE TUCKER William Ot Z79.899 SP PHARMACIST TECHNICIAN (CURRENT) DRUG THERAPY SP 07/15/2018 JOSE TUCKER William Ot Z80.42 SP HISTORY OF MALIGNANT NEOPLASM OF SP 07/15/2018 JOSE TUCKER William Ot Z80.8 SP HISTORY OF MALIGNANT NEOPLASM OF SP 07/15/2018 JOSE TUCKER William Ot Z85.850 SP HISTORY OF MALIGNANT NEOPLASM O SP 07/29/2018 JOSE TUCKER William Ot J98.4 SP DISORDERS OF LUNG SP 07/29/2018 GARRETTBRENDANMINDY N Ot Z85.3 SP HISTORY OF MALIGNANT NEOPLASM O SP 08/11/2018 SCOTT CURRAN COMPLIANCE MANAGER Ot J18.1 SP LOBAR PNEUMONIA, UNSPECIFIED ORGANISM SP 08/11/2018 SCOTT CURRAN COMPLIANCE MANAGER Ot J98.4 SP OTHER DISORDERS OF LUNG SP 08/11/2018 SCOTT CURRAN COMPLIANCE MANAGER Ot K76.89 SP OTHER SPECIFIED DISEASES OF LIVER SP 08/11/2018 SCOTT CURRAN COMPLIANCE MANAGER Ot Z90.13 SP ACQUIRED ABSENCE OF BILATERAL BREASTS AN SP 08/11/2018 SCOTT CURRAN COMPLIANCE MANAGER Ot Z98.890 SP OTHER SPECIFIED POSTPROCEDURAL STATES SP 08/12/2018 JOSE TUCKER N Ot J98.4 SP DISORDERS OF LUNG SP 08/12/2018 GARRETTJOSE N Ot Z85.3 SP HISTORY OF MALIGNANT NEOPLASM O SP 08/22/2018 JOSE TUCKER Ot C50.412 SP NEOPLASM OF UPPER-OUTER QUADRANT O SP 08/22/2018 JOSE TUCKER N Ot E89.0 SP HYPOTHYROIDISM SP 08/22/2018 GARRETTJOSE BONDS N Ot Z17.0 SP RECEPTOR POSITIVE STATUS [ER+] SP 08/22/2018 GARRETTJOSE BONDS N Ot Z51.0 SP FOR ANTINEOPLASTIC RADIATION T SP 08/22/2018 JOSE TUCKER N Ot Z79.899 SP PHARMACIST TECHNICIAN (CURRENT) DRUG THERAPY SP 08/22/2018 GARRETTJOSE BONDS N Ot Z80.42 SP HISTORY OF MALIGNANT NEOPLASM OF SP 08/22/2018 JOSE TUCKER N Ot Z80.8 SP HISTORY OF MALIGNANT NEOPLASM OF SP 08/22/2018 JOSE TUCKER N Ot Z85.850 SP HISTORY OF MALIGNANT NEOPLASM O SP 08/24/2018 JOSE TUCKER N Ot C50.412 SP NEOPLASM OF UPPER-OUTER QUADRANT O SP 08/24/2018 GARRETTJOSE BONDS N Ot E89.0 SP HYPOTHYROIDISM SP 08/24/2018 GARRETTJOSE BONDS N Ot Z17.0 SP RECEPTOR POSITIVE STATUS [ER+] SP 08/24/2018 JOSE TUCKER N Ot Z79.899 SP PHARMACIST TECHNICIAN (CURRENT) DRUG THERAPY SP 08/24/2018 JOSE TUCKER N Ot Z80.42 SP HISTORY OF MALIGNANT NEOPLASM OF SP 08/24/2018 JOSE TUCKER N Ot Z80.8 SP HISTORY OF MALIGNANT NEOPLASM OF SP 08/24/2018 JOSE TUCKER N Ot Z85.850 SP HISTORY OF MALIGNANT NEOPLASM O SP 08/25/2018 SCOTT CURRAN COMPLIANCE MANAGER Ot J18.1 SP LOBAR PNEUMONIA, UNSPECIFIED ORGANISM SP 08/25/2018 SCOTT CURRAN COMPLIANCE MANAGER Ot J98.4 SP OTHER DISORDERS OF LUNG SP 08/25/2018 SCOTT CURRAN COMPLIANCE MANAGER Ot K76.89 SP OTHER SPECIFIED DISEASES OF LIVER SP 08/25/2018 SCOTT CURRAN COMPLIANCE MANAGER Ot Z90.13 SP ACQUIRED ABSENCE OF BILATERAL BREASTS AN SP 08/25/2018 SCOTT CURRAN COMPLIANCE MANAGER Ot Z98.890 SP OTHER SPECIFIED POSTPROCEDURAL STATES SP 12/09/2018 GARRETTBRENDANAN N Ot C50.412 SP NEOPLASM OF UPPER-OUTER QUADRANT O SP 12/09/2018 GARRETT, BOBMINDY N Ot E89.0 SP HYPOTHYROIDISM SP 12/09/2018 JOSE TUCKER William Ot Z17.0 SP RECEPTOR POSITIVE STATUS [ER+] SP 12/09/2018 JOSE TUCKER William Ot Z79.899 SP PHARMACIST TECHNICIAN (CURRENT) DRUG THERAPY SP 12/09/2018 JOSE TUCKER N Ot Z80.42 SP HISTORY OF MALIGNANT NEOPLASM OF SP 12/09/2018 JOSE TUCKER William Ot Z80.8 SP HISTORY OF MALIGNANT NEOPLASM OF SP 12/09/2018 GARRETT BRENDANMINDY William Ot Z85.850 SP HISTORY OF MALIGNANT NEOPLASM O SP 01/31/2019 GARRETT JOSE Thomas Ot C50.412 SP NEOPLASM OF UPPER-OUTER QUADRANT O SP 01/31/2019 GARRETT BRENDANMINDY William Ot E89.0 SP HYPOTHYROIDISM SP 01/31/2019 GARRETT JOSE Thomas Ot K76.9 SP DISEASE, UNSPECIFIED SP 01/31/2019 GARRETT BRENDANMINDY William Ot M85.88 OTH SPDISRD OF BONE DENSITY AND STRUCTURE, SP 01/31/2019 JOSE TUCKER William Ot R91.8 SP NONSPECIFIC ABNORMAL FINDING OF KAREN SP 01/31/2019 JOSE TUCKER William Ot Z17.0 SP RECEPTOR POSITIVE STATUS [ER+] SP 01/31/2019 JOSE TUCKER William Ot Z79.811 SP TERM (CURRENT) USE OF AROMATASE INH SP 01/31/2019 JOES TUCKER William Ot Z79.899 SP LONGTERM (CURRENT) DRUG THERAPY SP 01/31/2019 JOSE TUCKER William Ot Z80.42 SP HISTORY OF MALIGNANT NEOPLASM OF SP 01/31/2019 JOSE TUCKER William Ot Z80.8 SP HISTORY OF MALIGNANT NEOPLASM OF SP 01/31/2019 JOSE TUCKER William Ot Z85.850 SP HISTORY OF MALIGNANT NEOPLASM O SP 01/31/2019 GARRETT BRENDANMINDY William Ot Z92.21 SP HISTORY OF ANTINEOPLASTIC CHEMO SP 01/31/2019 GARRETTJOSE Ot Z92.3 SP HISTORY OF IRRADIATION SP 02/02/2019 GARRETT JOSE Thomas Ot C50.412 SP NEOPLASM OF UPPER-OUTER QUADRANT O SP 02/02/2019 GARRETT BRENDANMINDY William Ot E89.0 SP HYPOTHYROIDISM SP 02/02/2019 GARRETT, JOSE Thomas Ot K76.9 SP DISEASE, UNSPECIFIED SP 02/02/2019 JOSE TUCKER Ot M85.88 OTH SPDISRD OF BONE DENSITY AND STRUCTURE, SP 02/02/2019 JOSE TUCKER Ot R91.8 SP NONSPECIFIC ABNORMAL FINDING OF KAREN SP 02/02/2019 JOSE TUCKER Ot Z17.0 SP RECEPTOR POSITIVE STATUS [ER+] SP 02/02/2019 JOSE TUCKER William Ot Z79.811 SP TERM (CURRENT) USE OF AROMATASE INH SP 02/02/2019 JOSE TUCKER William Ot Z79.899 SP PHARMACIST TECHNICIAN (CURRENT) DRUG THERAPY SP 02/02/2019 JOSE TUCKER William Ot Z85.850 SP HISTORY OF MALIGNANT NEOPLASM O SP 02/02/2019 JOSE TUCKER William Ot Z92.21 SP HISTORY OF ANTINEOPLASTIC CHEMO SP 02/02/2019 JOSE TUCKER N Ot Z92.3 SP HISTORY OF IRRADIATION SP 02/03/2019 JOSE TUCKER William Ot C50.412 SP NEOPLASM OF UPPER-OUTER QUADRANT O SP 02/03/2019 JOSE TUCKER William Ot K76.9 SP DISEASE, UNSPECIFIED SP 02/03/2019 JOSE TUCKER N Ot R91.8 SP NONSPECIFIC ABNORMAL FINDING OF KAREN SP 02/03/2019 JOSE TUCKER William Ot Z85.850 SP HISTORY OF MALIGNANT NEOPLASM O SP 02/03/2019 JOSE TUCKER William Ot Z90.13 SP ABSENCE OF BILATERAL BREASTS AN SP 02/09/2019 JOSE TUCKER William Ot C50.412 SP NEOPLASM OF UPPER-OUTER QUADRANT O SP 02/09/2019 JOSE TUCKER William Ot K76.9 SP DISEASE, UNSPECIFIED SP 02/09/2019 JOSE TUCKER William Ot R91.8 SP NONSPECIFIC ABNORMAL FINDING OF KAREN SP 02/09/2019 JOSE TUCKER William Ot Z85.850 SP HISTORY OF MALIGNANT NEOPLASM O SP 02/09/2019 JOSE TUCKER N Ot Z90.13 SP ABSENCE OF BILATERAL BREASTS AN SP 05/03/2019 JOSE TUCKER William Ot C50.412 SP NEOPLASM OF UPPER-OUTER QUADRANT O SP 05/03/2019 JOSE TUCKER William Ot J70.0 SP PULMONARY MANIFESTATIONS DUE TO RA SP 05/03/2019 GARRETT, BRENDANMINDY William Ot K76.9 SP DISEASE, UNSPECIFIED SP 05/03/2019 JOSE TUCKER William Ot M89.8X9 SP SPECIFIED DISORDERS OF BONE, UNSPE SP 05/03/2019 GARRETT JOSE Thomas Ot R93.89 SP FINDINGS ON DX IMAGING OF OTH B SP 05/12/2019 GARRETT JOSE Thomas Ot C50.412 SP NEOPLASM OF UPPER-OUTER QUADRANT O SP 05/12/2019 GARRETTJOSE Ot J70.0 SP PULMONARY MANIFESTATIONS DUE TO RA SP 05/12/2019 JOSE TUCKER Ot K76.9 SP DISEASE, UNSPECIFIED SP 05/12/2019 GARRETT JOSE Thomas Ot M89.8X9 SP SPECIFIED DISORDERS OF BONE, UNSPE SP 05/12/2019 GARRETTJOSE Ot R93.89 SP FINDINGS ON DX IMAGING OF OTH B SP 07/26/2019 GARRETTJOSE Ot C50.412 SP NEOPLASM OF UPPER-OUTER QUADRANT O SP 07/26/2019 JOSE TUCKER Ot E89.0 SP HYPOTHYROIDISM SP 07/26/2019 JOSE TUCKER Ot K76.9 SP DISEASE, UNSPECIFIED SP 07/26/2019 GARRETTJOSE Ot M85.88 OT SPDISRD OF BONE DENSITY AND STRUCTURE, SP 07/26/2019 JOSE TUCKER Ot R91.8 SP NONSPECIFIC ABNORMAL FINDING OF KAREN SP 07/26/2019 JOSE TUCKER Ot Z17.0 SP RECEPTOR POSITIVE STATUS [ER+] SP 07/26/2019 JOSE TUCKER Ot Z79.811 SP TERM (CURRENT) USE OF AROMATASE INH SP 07/26/2019 JOSE TUCKER Ot Z79.899 SP PHARMACIST TECHNICIAN (CURRENT) DRUG THERAPY SP 07/26/2019 JOSE TUCKER Ot Z80.42 SP HISTORY OF MALIGNANT NEOPLASM OF SP 07/26/2019 JOSE TUCKER Ot Z85.850 SP HISTORY OF MALIGNANT NEOPLASM O SP 07/26/2019 JOSE TUCKER Ot Z92.21 SP HISTORY OF ANTINEOPLASTIC CHEMO SP 07/26/2019 JOSE TUCKER Ot Z92.3 SP HISTORY OF IRRADIATION SP 08/02/2019 JOSE TUCKER Ot C50.412 SP NEOPLASM OF UPPER-OUTER QUADRANT O SP 08/02/2019 JOSE TUCKER Ot E89.0 SP HYPOTHYROIDISM SP 08/02/2019 JOSE TUCKER N Ot K76.9 SP DISEASE, UNSPECIFIED SP 08/02/2019 JOSE TUCKER N Ot M85.88 OTH SPDISRD OF BONE DENSITY AND STRUCTURE, SP 08/02/2019 JOSE TUCKER N Ot R91.8 SP NONSPECIFIC ABNORMAL FINDING OF KAREN SP 08/02/2019 GARRETTJOSE BONDS N Ot Z17.0 SP RECEPTOR POSITIVE STATUS [ER+] SP 08/02/2019 GARRETTJOSE N Ot Z79.811 SP TERM (CURRENT) USE OF AROMATASE INH SP 08/02/2019 GARRETTJOSE N Ot Z79.899 SP LONGTERM (CURRENT) DRUG THERAPY SP 08/02/2019 GARRETTJOSE N Ot Z80.42 SP HISTORY OF MALIGNANT NEOPLASM OF SP 08/02/2019 GRARETTJOSE BONDS N Ot Z85.850 SP HISTORY OF MALIGNANT NEOPLASM O SP 08/02/2019 JOSE TUCKER N Ot Z92.21 SP HISTORY OF ANTINEOPLASTIC CHEMO SP 08/02/2019 GARRETTJOSE BONDS N Ot Z92.3 SP HISTORY OF IRRADIATION SP 08/31/2019 JOSE TUCKER N Ot C50.412 SP NEOPLASM OF UPPER-OUTER QUADRANT O SP 08/31/2019 JOSE TUCKER N Ot E89.0 SP HYPOTHYROIDISM SP 08/31/2019 JOSE TUCKER N Ot K76.9 SP DISEASE, UNSPECIFIED SP 08/31/2019 JOSE TUCKER N Ot M85.88 OTH SPDISRD OF BONE DENSITY AND STRUCTURE, SP 08/31/2019 JOSE TUCKER N Ot R91.8 SP NONSPECIFIC ABNORMAL FINDING OF KAREN SP 08/31/2019 GARRETTJOSE N Ot Z17.0 SP RECEPTOR POSITIVE STATUS [ER+] SP 08/31/2019 GARRETTJOSE N Ot Z79.811 SP TERM (CURRENT) USE OF AROMATASE INH SP 08/31/2019 GARRETTJOSE N Ot Z79.899 SP LONGTERM (CURRENT) DRUG THERAPY SP 08/31/2019 JOSE TUCKER N Ot Z80.42 SP HISTORY OF MALIGNANT NEOPLASM OF SP 08/31/2019 JOSE TUCKER N Ot Z85.850 SP HISTORY OF MALIGNANT NEOPLASM O SP 08/31/2019 GARRETTJOSE N Ot Z92.21 SP HISTORY OF ANTINEOPLASTIC CHEMO SP 08/31/2019 JOSE TUCKER N Ot Z92.3 SP HISTORY OF IRRADIATION SP 09/06/2019 LEBRON BAZZI, VELASQUEZ Taylor Ot R00.2 SP PALPITATIONS SP 09/07/2019 JOSE TUCKER Ot C50.412 SP NEOPLASM OF UPPER-OUTER QUADRANT O SP 09/07/2019 JOSE TUCKER N Ot E89.0 SP HYPOTHYROIDISM SP 09/07/2019 JOSE TUCKER N Ot K76.9 SP DISEASE, UNSPECIFIED SP 09/07/2019 JOSE TUCKER N Ot M85.88 OTH SPDISRD OF BONE DENSITY AND STRUCTURE, SP 09/07/2019 JOSE TUCKER Ot R91.8 SP NONSPECIFIC ABNORMAL FINDING OF KAREN SP 09/07/2019 JOSE TUCKER N Ot Z17.0 SP RECEPTOR POSITIVE STATUS [ER+] SP 09/07/2019 JOSE TUCKER N Ot Z79.811 SP TERM (CURRENT) USE OF AROMATASE INH SP 09/07/2019 JOSE TUCKER N Ot Z79.899 SP LONGTERM (CURRENT) DRUG THERAPY SP 09/07/2019 JOSE TUCKER N Ot Z80.42 SP HISTORY OF MALIGNANT NEOPLASM OF SP 09/07/2019 JOSE TUCKER N Ot Z85.850 SP HISTORY OF MALIGNANT NEOPLASM O SP 09/07/2019 JOSE TUCKER N Ot Z92.21 SP HISTORY OF ANTINEOPLASTIC CHEMO SP 09/07/2019 JOSE TUCKER N Ot Z92.3 SP HISTORY OF IRRADIATION SP 09/09/2019 JORDON VELAZQUEZ MD Ot E03 .9 SP UNSPECIFIED SP 09/09/2019 JORDON VELAZQUEZ MD Ot 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, LEFT EYE SP 09/09/2019 JORDON VELAZQUEZ MD Ot M19.90 SP UNSPECIFIED OSTEOARTHRITIS, UNSPECIFIED SP 09/09/2019 JORDON VELAZQUEZ MD Ot Z79.899 SP OTHER LONGTERM (CURRENT) DRUG THERAPY SP 09/09/2019 JORDON VELAZQUEZ MD Ot Z80 .0 SP HISTORY OF MALIGNANT NEOPLASM OF SP 09/09/2019 JORDON VELAZQUEZ MD Ot Z80 .1 SP HISTORY OF MALIG NEOPLASM OF TRAC SP 09/09/2019 JORDON VELAZQUEZ MD Ot Z80.42 SP FAMILY HISTORY OF MALIGNANT NEOPLASM OF SP 09/09/2019 JORDON VELAZQUEZ MD Ot Z80 .6 SP HISTORY OF LEUKEMIA SP 09/09/2019 JORDON VELAZQUEZ MD Ot Z83 .3 SP HISTORY OF DIABETES MELLITUS SP 09/09/2019 JORDON VELAZQUEZ MD Ot Z83.518 SP FAMILY HISTORY OF OTHER SPECIFIED EYE DI SP 09/09/2019 JORDON VELAZQUEZ MD Ot Z83.79 SP FAMILY HISTORY OF OTHER DISEASES OF THE SP 09/09/2019 JORDON VELAZQUEZ MD Ot Z85.79 SP 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, LEFT EYE SP 09/14/2019 JORDON VELAZQUEZ MD Ot M19.90 SP UNSPECIFIED OSTEOARTHRITIS, UNSPECIFIED SP 09/14/2019 JORDON VELAZQUEZ MD Ot Z79.899 SP OTHER PHARMACIST TECHNICIAN (CURRENT) DRUG THERAPY SP 09/14/2019 JORDON VELAZQUEZ MD Ot Z80 .0 SP HISTORY OF MALIGNANT NEOPLASM OF SP 09/14/2019 JORDON VELAZQUEZ MD Ot Z80 .1 SP HISTORY OF MALIG NEOPLASM OF TRAC SP 09/14/2019 JORDON VELAZQUEZ MD Ot Z80.42 SP FAMILY HISTORY OF MALIGNANT NEOPLASM OF SP 09/14/2019 JORDON VELAZQUEZ MD Ot Z80 .6 SP HISTORY OF LEUKEMIA SP 09/14/2019 JORDON VELAZQUEZ MD Ot Z83 .3 SP HISTORY OF DIABETES MELLITUS SP 09/14/2019 JORDON VELAZQUEZ MD Ot Z83.518 SP FAMILY HISTORY OF OTHER SPECIFIED EYE DI SP 09/14/2019 JORDON VELAZQUEZ MD Ot Z83.79 SP FAMILY HISTORY OF OTHER DISEASES OF THE SP 09/14/2019 JORDON VELZAQUEZ MD Ot Z85.79 SP 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, HE SP 09/14/2019 JORDON VELAZQUEZ MD Ot Z85.840 SP PERSONAL HISTORY OF MALIGNANT NEOPLASM O SP 09/14/2019 JORDON VELAZQUEZ MD Ot Z85.850 SP PERSONAL HISTORY OF MALIGNANT NEOPLASM O SP 09/14/2019 JORDON VELAZQUEZ MD Ot Z88 .8 SP STATUS TO [facility] DRUG/MEDS/BIOL SUB SP 09/14/2019 JORDON VELAZQUEZ MD Ot Z90.710 SP ACQUIRED ABSENCE OF BOTH CERVIX AND UTER SP 09/21/2019 JORDON VELAZQUEZ MD Ot Z01.818 SP ENCOUNTER FOR OTHER PREPROCEDURAL EXAMIN SP 09/21/2019 JORDON VELAZQUEZ MD Ot Z01.818 SP ENCOUNTER FOR OTHER PREPROCEDURAL EXAMIN SP 09/21/2019 JORDON VELAZQUEZ MD Ot Z01.818 SP ENCOUNTER FOR OTHER PREPROCEDURAL EXAMIN SP 09/23/2019 JORDON VELZAQUEZ MD Ot H25.11 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, RIGHT EYE SP 09/23/2019 JORDON VELAZQUEZ MD Ot Z79.899 SP OTHER LONGTERM (CURRENT) DRUG THERAPY SP 09/23/2019 JORDON VELAZQUEZ MD Ot Z80 .8 SP HISTORY OF MALIGNANT NEOPLASM OF SP 09/23/2019 JORDON VELAZQUEZ MD Ot Z83 .3 SP HISTORY OF DIABETES MELLITUS SP 09/23/2019 JORDON VELAZQUEZ MD Ot Z83.518 SP FAMILY HISTORY OF OTHER SPECIFIED EYE DI SP 09/23/2019 JORDON VELAZQUEZ MD Ot Z88 .2 SP STATUS TO SULFONAMIDES STATUS SP 09/23/2019 JORDON VELAZQUEZ MD Ot Z90.12 SP ACQUIRED ABSENCE OF LEFT BREAST AND NIPP SP 09/23/2019 JORDON VELAZQUEZ MD Ot Z90.710 SP ACQUIRED ABSENCE OF BOTH CERVIX AND UTER SP 09/23/2019 JORDON VELAZQUEZ MD Ot Z90.89 SP ACQUIRED ABSENCE OF OTHER ORGANS SP 09/27/2019 JORDON VELAZQUEZ MD Ot H25.11 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, RIGHT EYE SP 09/27/2019 JORDON VELAZQUEZ MD Ot Z79.899 SP OTHER PHARMACIST TECHNICIAN (CURRENT) DRUG THERAPY SP 09/27/2019 JORDON VELAZQUEZ MD Ot Z80 .8 SP HISTORY OF MALIGNANT NEOPLASM OF SP 09/27/2019 JORDON VELAZQUEZ MD Ot Z83 .3 SP HISTORY OF DIABETES MELLITUS SP 09/27/2019 JORDON VELAZQUEZ MD Ot Z83.518 SP FAMILY HISTORY OF OTHER SPECIFIED EYE DI SP 09/27/2019 JORDON VELAZQUEZ MD Ot Z88 .2 SP STATUS TO SULFONAMIDES STATUS SP 09/27/2019 JORDON VELAZQUEZ MD Ot Z90.12 SP ACQUIRED ABSENCE OF LEFT BREAST AND NIPP SP 09/27/2019 JORDON VELAZQUEZ MD Ot Z90.710 SP ACQUIRED ABSENCE OF BOTH CERVIX AND UTER SP 09/27/2019 JORDON VELAZQUEZ MD Ot Z90.89 SP ACQUIRED ABSENCE OF OTHER ORGANS SP Procedures There is no data. Results Test Result Range POS Methicillin resistant Staphylococcus aur eus (MRSA) screening culture - 08/19/17 POS Methicillin resistant Staphylococcus aureus (MRSA) scr eening culture POS NRG SP Complete blood count (CBC) with automate d white blood cell (WBC) differential - POS 14:00 Blood leukocytes automated count (number/volume) 5.0 10*3/uL POS 4.3-11.0 SP Blood erythrocytes automated count (number/volume) 3.67 10*6/uL SP 4.35-5.85 SP Venous blood hemoglobin measurement (mass/volume) 11.5 g/dL SP16.0 Blood hematocrit (volume fraction) 34 % 35-52 SP Automated erythrocyte mean corpuscular volume 93 [ foz_us] SP99 Automated erythrocyte mean corpuscular h emoglobin (mass per erythrocyte) SP 31 pg 25-34 SP Automated erythrocyte mean corpuscular h emoglobin concentration measurement SP 34 g/dL 32-36 SP Automated erythrocyte distribution width ratio 12. 8 % 10.0- SP Automated blood platelet count (count/volume) 176 10*3/uL SP400 Automated blood platelet mean volume measurement 10.0 [foz_us] SP 7.4-10.4 SP Automated blood neutrophils/100 leukocytes 72 % 42-75 SP Automated blood lymphocytes/100 leukocytes 21 % 12-44 SP Blood monocytes/100 leukocytes 6 % 0-12 SP Automated blood eosinophils/100 leukocytes 0 % 0-10 SP Automated blood basophils/100 leukocytes 1 % 0-10 SP Blood neutrophils automated count (number/volume) 3.6 10*3 SP7.8 Blood lymphocytes automated count (number/volume) 1.1 10*3 SP4.0 Blood monocytes automated count (number/volume) 0. 3 10*3 SP1.0 Automated eosinophil count 0.0 10*3/uL 0 .0-0.3 SP Automated blood basophil count (count/volume) 0.0 10*3/uL SP0.1 Whole blood basic metabolic panel - 08/09 14:00 POS Serum or plasma sodium measurement (moles/volume) 138 mmol/L SP 135-145 SP Serum or plasma potassium measurement (moles/volume) 4.7 mmol/L SP 3.6-5.0 SP Serum or plasma chloride measurement (moles/volume) 103 mmol/L SP 98-107 SP Carbon dioxide 27 mmol/L 21-32 SP Serum or plasma anion gap determination (moles/volume) 8 mmol/L SP 5-14 SP Serum or plasma urea nitrogen measurement (mass/volume ) 13 mg/dL SP 7-18 SP Serum or plasma creatinine measurement (mass/volume) 0.68 mg/dL SP 0.60-1.30 SP Serum or plasma urea nitrogen/creatinine mass ratio 19 NRG SP Serum or plasma creatinine measurement w ith calculation of estimated glomerular SP rate > NRG SP Serum or plasma glucose measurement (mass/volume) 92 mg/dL SP105 Serum or plasma calcium measurement (mass/volume) 9.3 mg/dL SP10.1 Complete blood count (CBC) with automate d white blood cell (WBC) differential - POS 14:30 Blood leukocytes automated count (number/volume) 5.4 10*3/uL POS 4.3-11.0 SP Blood erythrocytes automated count (number/volume) 3.48 10*6/uL SP 4.35-5.85 SP Venous blood hemoglobin measurement (mass/volume) 11.3 g/dL SP16.0 Blood hematocrit (volume fraction) 34 % 35-52 SP Automated erythrocyte mean corpuscular volume 97 [ foz_us] SP99 Automated erythrocyte mean corpuscular h emoglobin (mass per erythrocyte) SP 33 pg 25-34 SP Automated erythrocyte mean corpuscular h emoglobin concentration measurement SP 33 g/dL 32-36 SP Automated erythrocyte distribution width ratio 14. 6 % 10.0- SP Automated blood platelet count (count/volume) 247 10*3/uL SP400 Automated blood platelet mean volume measurement 9.5 [foz_us] SP 7.4-10.4 SP Automated blood neutrophils/100 leukocytes 67 % 42-75 SP Automated blood lymphocytes/100 leukocytes 15 % 12-44 SP Blood monocytes/100 leukocytes 13 % 0-12 SP Automated blood eosinophils/100 leukocytes 5 % 0-10 SP Automated blood basophils/100 leukocytes 1 % 0-10 SP Blood neutrophils automated count (number/volume) 3.6 10*3 SP7.8 Blood lymphocytes automated count (number/volume) 0.8 10*3 SP4.0 Blood monocytes automated count (number/volume) 0. 7 10*3 SP1.0 Automated eosinophil count 0.3 10*3/uL 0 .0-0.3 SP Automated blood basophil count (count/volume) 0.0 10*3/uL SP0.1 Whole blood basic metabolic panel - 10/24 07/09 14:30 POS Serum or plasma sodium measurement (moles/volume) 140 mmol/L SP 135-145 SP Serum or plasma potassium measurement (moles/volume) 3.7 mmol/L SP 3.6-5.0 SP Serum or plasma chloride measurement (moles/volume) 109 mmol/L SP 98-107 SP Carbon dioxide 25 mmol/L 21-32 SP Serum or plasma anion gap determination (moles/volume) 6 mmol/L SP 5-14 SP Serum or plasma urea nitrogen measurement (mass/volume ) 13 mg/dL SP 7-18 SP Serum or plasma creatinine measurement (mass/volume) 0.70 mg/dL SP 0.60-1.30 SP Serum or plasma urea nitrogen/creatinine mass ratio 19 NRG SP Serum or plasma creatinine measurement w ith calculation of estimated glomerular SP rate > NRG SP Serum or plasma glucose measurement (mass/volume) 134 mg/dL SP105 Serum or plasma calcium measurement (mass/volume) 8.8 mg/dL SP10.1 Complete blood count (CBC) with automate d white blood cell (WBC) differential - POS 14:38 Blood leukocytes automated count (number/volume) 4.2 10*3/uL POS 4.3-11.0 SP Blood erythrocytes automated count (number/volume) 3.69 10*6/uL SP 4.35-5.85 SP Venous blood hemoglobin measurement (mass/volume) 12.1 g/dL SP16.0 Blood hematocrit (volume fraction) 35 % 35-52 SP Automated erythrocyte mean corpuscular volume 94 [ foz_us] SP99 Automated erythrocyte mean corpuscular h emoglobin (mass per erythrocyte) SP 33 pg 25-34 SP Automated erythrocyte mean corpuscular h emoglobin concentration measurement SP 35 g/dL 32-36 SP Automated erythrocyte distribution width ratio 11. 8 % 10.0- SP Automated blood platelet count (count/volume) 230 10*3/uL SP400 Automated blood platelet mean volume measurement 9.9 [foz_us] SP 7.4-10.4 SP Automated blood neutrophils/100 leukocytes 66 % 42-75 SP Automated blood lymphocytes/100 leukocytes 22 % 12-44 SP Blood monocytes/100 leukocytes 11 % 0-12 SP Automated blood eosinophils/100 leukocytes 1 % 0-10 SP Automated blood basophils/100 leukocytes 1 % 0-10 SP Blood neutrophils automated count (number/volume) 2.8 10*3 SP7.8 Blood lymphocytes automated count (number/volume) 0.9 10*3 SP4.0 Blood monocytes automated count (number/volume) 0. 4 10*3 SP1.0 Automated eosinophil count 0.1 10*3/uL 0 .0-0.3 SP Automated blood basophil count (count/volume) 0.0 10*3/uL SP0.1 Whole blood basic metabolic panel - 12/24 04/09 14:38 POS Serum or plasma sodium measurement (moles/volume) 140 mmol/L SP 135-145 SP Serum or plasma potassium measurement (moles/volume) 4.1 mmol/L SP 3.6-5.0 SP Serum or plasma chloride measurement (moles/volume) 106 mmol/L SP 98-107 SP Carbon dioxide 23 mmol/L 21-32 SP Serum or plasma anion gap determination (moles/volume) 11 mmol/L SP 5-14 SP Serum or plasma urea nitrogen measurement (mass/volume ) 11 mg/dL SP 7-18 SP Serum or plasma creatinine measurement (mass/volume) 0.70 mg/dL SP 0.60-1.30 SP Serum or plasma urea nitrogen/creatinine mass ratio 16 NRG SP Serum or plasma creatinine measurement w ith calculation of estimated glomerular SP rate > NRG SP Serum or plasma glucose measurement (mass/volume) 117 mg/dL SP105 Serum or plasma calcium measurement (mass/volume) 8.8 mg/dL SP10.1 [id number] - 08/10/18 14:21 POS Serum or plasma urea nitrogen measurement (mass/volume ) 11 mg/dL SP 7-18 SP Serum or plasma creatinine measurement (mass/volume) 0.75 mg/dL SP 0.60-1.30 SP Serum or plasma urea nitrogen/creatinine mass ratio 15 NRG SP Serum or plasma creatinine measurement w ith calculation of estimated glomerular SP rate > NRG SP Complete blood count (CBC) with automate d white blood cell (WBC) differential - POS 13:02 Blood leukocytes automated count (number/volume) 4.9 10*3/uL POS 4.3-11.0 SP Blood erythrocytes automated count (number/volume) 4.21 10*6/uL SP 4.35-5.85 SP Venous blood hemoglobin measurement (mass/volume) 13.1 g/dL SP16.0 Blood hematocrit (volume fraction) 40 % 35-52 SP Automated erythrocyte mean corpuscular volume 94 [ foz_us] SP99 Automated erythrocyte mean corpuscular h emoglobin (mass per erythrocyte) SP 31 pg 25-34 SP Automated erythrocyte mean corpuscular h emoglobin concentration measurement SP 33 g/dL 32-36 SP Automated erythrocyte distribution width ratio 12. 3 % 10.0- SP Automated blood platelet count (count/volume) 222 10*3/uL SP400 Automated blood platelet mean volume measurement 10.0 [foz_us] SP 7.4-10.4 SP Automated blood neutrophils/100 leukocytes 67 % 42-75 SP Automated blood lymphocytes/100 leukocytes 23 % 12-44 SP Blood monocytes/100 leukocytes 9 % 0-12 SP Automated blood eosinophils/100 leukocytes 2 % 0-10 SP Automated blood basophils/100 leukocytes 0 % 0-10 SP Blood neutrophils automated count (number/volume) 3.3 10*3 SP7.8 Blood lymphocytes automated count (number/volume) 1.1 10*3 SP4.0 Blood monocytes automated count (number/volume) 0. 4 10*3 SP1.0 Automated eosinophil count 0.1 10*3/uL 0 .0-0.3 SP Automated blood basophil count (count/volume) 0.0 10*3/uL SP0.1 Comprehensive metabolic panel - 08/02/19 13:02 POS Serum or plasma sodium measurement (moles/volume) 138 mmol/L SP 135-145 SP Serum or plasma potassium measurement (moles/volume) 4.2 mmol/L SP 3.6-5.0 SP Serum or plasma chloride measurement (moles/volume) 103 mmol/L SP 98-107 SP Carbon dioxide 27 mmol/L 21-32 SP Serum or plasma anion gap determination (moles/volume) 8 mmol/L SP 5-14 SP Serum or plasma urea nitrogen measurement (mass/volume ) 16 mg/dL SP 7-18 SP Serum or plasma creatinine measurement (mass/volume) 0.85 mg/dL SP 0.60-1.30 SP Serum or plasma urea nitrogen/creatinine mass ratio 19 NRG SP Serum or plasma creatinine measurement w ith calculation of estimated glomerular SP rate > NRG SP Serum or plasma glucose measurement (mass/volume) 96 mg/dL SP105 Serum or plasma calcium measurement (mass/volume) 9.3 mg/dL SP10.1 Serum or plasma total bilirubin measurement (mass/volu me) 0.5 mg/dL SP 0.1-1.0 SP Serum or plasma alkaline phosphatase marycarmen surement (enzymatic activity/volume) SP 76 U/L 40-136 SP Serum or plasma aspartate aminotransfera se measurement (enzymatic SP 24 U/L 5-34 SP Serum or plasma alanine aminotransferase measurement (enzymatic activity/volume) SP 33 U/L 0-55 SP Serum or plasma protein measurement (mass/volume) 7.0 g/dL SP8.2 Serum or plasma albumin measurement (mass/volume) 4.4 g/dL SP4.5 CALCIUM CORRECTED 9.0 mg/dL 8.5-10.1 SP THYROID STIMULATING HORMONE - 08/02/19 1 3:02 POS THYROID STIMULATING HORMONE 3.92 u[iU]/mL 0.35-4.94 SP Encounters ACCT No. Visit Date/Time Discharge Status POS Pt. Type Provider Facility Loc./Un it POS Complaint POS [id number] 09/23/2019 06:00:00 07:30:00 SP DIS Outpatient JORDON VELAZQUEZ MD Via [facility] CATARACT RIGHT EYE SP [id number] 09/21/2019 05:52:00 10:24:00 SP DIS Outpatient JORDON VELAZQUEZ MD Via [facility] PREOP CATARACT RIGHT EYE SP [id number] 09/09/2019 06:00:00 07:40:00 SP DIS Outpatient JORDON VELAZQUEZ MD [facility] CATARACT LEFT EYE SP [id number] 09/06/2019 05:40:00 12:52:00 SP DIS Outpatient JORDON VELAZQUEZ MD Via [facility] PREOP CATARACT LEFT EYE SP [id number] 08/02/2019 12:46:00 23:59:59 SP CLS Outpatient JOSE TUCKER [facility] ONC SP [id number] 04/27/2019 09:23:00 00:01:00 SP DIS Outpatient JOSE TUCKER [facility] ONC SP [id number] 04/28/2019 10:35:00 23:59:59 SP CLS Outpatient JOSE TUCKER [facility] CARD BREAST CA SP [id number] 01/21/2019 09:32:00 00:01:00 SP DIS Outpatient JOSE TUCKER [facility] ONC SP [id number] 01/27/2019 13:31:00 23:59:59 SP CLS Outpatient JOSE TUCKER [facility] RAD CA OF FEMALE BREAST,LIVER LE SHIRAZ SP [id number] 08/02/2018 14:58:00 018 00:01:00 SP DIS Outpatient JOSE TUCKER [facility] ONC SP [id number] 08/10/2018 14:07:00 018 23:59:59 SP CLS Outpatient BINASCOTT Evan COMPLIANCE MANAGER [facility] RAD PERSISTENT COUGH SP [id number] 07/28/2018 14:40:00 018 23:59:59 SP CLS Outpatient JOSE TUCKER [facility] RAD R05 SP [id number] 07/13/2018 15:31:00 018 23:59:59 SP CLS Outpatient JOSE TUCKER [facility] ONC SP [id number] 06/22/2018 10:40:00 018 23:59:59 SP CLS Outpatient ELSA DEE COMPLIANCE MANAGER [facility] CARD EXERTIONAL SP OF FEMALE BREAST [id number] 06/03/2018 09:01:00 018 23:59:59 SP CLS Outpatient ELSA DEE COMPLIANCE MANAGER [facility] RAD OSTEOPENIA OF SPINE SP [id number] 04/14/2018 08:25:00 018 00:01:00 SP DIS Outpatient JOSE TUCKER [facility] ONC SP [id number] 01/07/2018 14:24:00 018 12:48:00 SP DIS Outpatient NEELAM LOPEZ MD [facility] ONC SP [id number] 12/17/2017 14:56:00 018 09:48:00 SP DIS Outpatient JOSE TUCKER [facility] ONC SP [id number] 10/22/2017 13:41:00 017 23:59:59 SP CLS Outpatient ELSA DEE COMPLIANCE MANAGER [facility] RAD C50.412 CANCER OF FE MALE BREAST SP [id number] 10/14/2017 10:16:00 017 10:18:00 SP DIS Outpatient NEELAM LOPEZ MD [facility] ONC SP [id number] 09/17/2017 15:39:00 017 13:42:00 SP DIS Outpatient JOSE TUCKER V ia [facility] ONC SP [id number] 08/25/2017 14:49:00 017 23:59:59 SP CLS Outpatient GARRETTJOSE V ahmet [facility] RAD C50.412 SP [id number] 08/18/2017 15:07:00 017 00:01:00 SP DIS Outpatient JOSE TUCKER V ahmet [facility] ONC SP [id number] 08/19/2017 11:50:00 017 16:35:00 SP DIS Outpatient CATALINA CALLE MD [facility] SDC LEFT BREAST CANCER SP [id number] 08/18/2017 11:02:00 017 14:29:00 SP DIS Outpatient LUC BAZZI, CATALINA Gordon [facility] PREOP PORT PLACEMENT SP [id number] 08/14/2017 08:14:00 017 23:59:59 SP CLS Outpatient JOSE TUCKER V ahmet [facility] RAD C50.412 SP [id number] 08/13/2017 09:45:00 017 23:59:59 SP CLS Outpatient VELASQUEZ DIANA MD [facility] CARD LT BREAST CA SP [id number] 08/11/2017 07:48:00 017 23:59:59 SP CLS Outpatient VELASQUEZ DIANA MD [facility] RAD LT BREAST CA SP [id number] 08/05/2017 10:41:00 017 23:59:59 SP CLS Outpatient SCOTT CURRANP [facility] RAD ABNORMAL MAMMO,CALCI FICATION RT SP [id number] 08/04/2017 13:35:00 017 23:59:59 SP CLS Outpatient SCOTT CURRAN COMPLIANCE MANAGER [facility] RAD ABNORMAL MAMMO, LESI ON LT OUTER SP [id number] 07/30/2017 08:05:00 017 23:59:59 SP CLS Outpatient SCOTT CURRAN COMPLIANCE MANAGER [facility] RAD L BREAST LUMP SP [id number] 07/21/2017 10:15:00 23:59:59 SP CLS Preadmit LEBRON BAZZI, VELASQUEZ Taylor [facility] CARD PALPITATIONS SP [id number] 04/21/2017 09:51:00 00:01:00 SP DIS Outpatient LEBRON BAZZI, VELASQUEZ Taylor [facility] CARD PALPITATIONS SP [id number] 04/28/2016 09:28:00 016 13:39:00 SP DIS Outpatient LUC BAZZI, CATALINA Gordon [facility] SDC SCREENING SP [id number] 04/24/2016 07:13:00 016 14:48:00 SP DIS Outpatient LUC BAZZI, CATALINA Gordon [facility] PREOP SCREENING SP [id number] 11/09/2013 06:00:00 013 10:30:00 SP DIS Outpatient LUC BAZZI, CATALINA Gordon [facility] SDC MULTINODULES SP [id number] 11/08/2013 08:04:00 013 23:59:59 SP CLS Outpatient LUC BAZZI, CATALINA Gordon [facility] PREOP MULTINODULES SP [id number] 11/04/2013 08:58:00 23:59:59 SP CLS Outpatient SCOTT CURRAN COMPLIANCE MANAGER [facility] RAD SCREENING SP [id number] 10/31/2013 09:57:00 23:59:59 SP CLS Outpatient LUC BAZZI, CATALINA Gordon [facility] RAD THYROID NODULE SP [id number] 10/04/2013 11:02:00 013 23:59:59 SP CLS Outpatient LEBRON ABZZI, VELASQUEZ Taylor [facility] RAD GOITER, THROAT FULLN ESS,LT HIP SP KNEE PAIN [id number] 08/02/2019 16:03:00 SP Registration SP
== END 2019-09-23 07:30 | disposition home or self-care (01) ==
LOC: SDC 06:00
PROVIDERS: ATTEND Specialist
DX: H25.11 Age-related nuclear cataract, right eye (principal); Z88.2 Allergy status to sulfonamides; Z79.899 Other long term (current) drug therapy; Z90.710 Acquired absence of both cervix and uterus; Z90.89 Acquired absence of other organs; Z90.12 Acquired absence of left breast and nipple; Z83.518 Family history of other specified eye disorder; Z83.3 Family history of diabetes mellitus; Z80.8 Family history of malignant neoplasm of other organs or systems

== ENCOUNTER → 2019-11-07 | Outpatient (CLI) | payer BC ==
[~2019-11-07] MED LIST changes: +CATHETER FLUSH 10 ML SYR IV PRN; +HOLD METFORMIN - RECEIVED CONTRAST 20 ML VIAL IV SCH; +IOHEXOL 350 MG/ML 100 ML (OMNIPAQUE 350) VIAL IV ONE; +NS 100 ML (IVPB) BAG IV ONE
--- NOTE | 2019-11-07 14:26 | Diagnostic Imaging Report ---
EXAMINATION: CT Chest and Abdomen with intravenous contrast. TECHNIQUE: Multiple contiguous axial images were obtained through the chest and abdomen after the uneventful administration of intravenous contrast. All CT scans use one or more of the following dose optimizing techniques: automated exposure control, MA and/or KvP adjustment based on a patient size and exam type, or iterative reconstruction. HISTORY: Breast cancer. COMPARISON: 04/28/2019 FINDINGS: There is anterior fibrosis in the left lung likely representing prior breast radiation. No edema or pneumonia. No pleural effusion or pneumothorax. No suspicious nodules. Heart size is normal. No pericardial effusion. Aorta is normal in caliber. There is no axillary or supraclavicular lymphadenopathy. There is no mediastinal lymphadenopathy. There are bilateral breast reconstructions. There has been likely a left axillary lymph node dissection. There are three hemangiomas identified in the liver which appear unchanged from prior exam. No new liver lesions are seen. There is no biliary ductal dilation. Gallbladder is normal. Pancreas is normal. Spleen is normal. Adrenal glands are normal. The kidneys are normal. There is no hydronephrosis. Visualized bowel is normal in caliber without obstruction or inflammation. No free fluid or air. No abdominal lymphadenopathy. Aorta is normal in caliber without aneurysm. There are no suspicious osseus lesions. IMPRESSION: 1. No metastatic disease in the chest or abdomen. 2. Stable hepatic hemangiomas. Dictated by: Dictated on workstation # [id number]
== END ==
LOC: RAD 11:30
PROVIDERS: ATTEND Nurse Practitioner Adult Health
DX: Z01.89 Encounter for other specified special examinations (principal); C50.412 Malignant neoplasm of upper-outer quadrant of left female breast; R93.89 Abnormal findings on diagnostic imaging of other specified body structures; D18.03 Hemangioma of intra-abdominal structures
CPT/HCPCS: 36415; 71260; 74160; 82306

== ENCOUNTER 2019-11-08 14:02 | Outpatient (RCR) | payer BC ==
[2019-11-07 12:06] LABS: BASOPHILS % (AUTO) 0 % (0-10); EOSINOPHILS # (AUTO) 0.1 10^3/uL (0.0-0.3); EOSINOPHILS % (AUTO) 2 % (0-10); HEMATOCRIT 40 % (35-52); HEMOGLOBIN 13.8 G/DL (11.5-16.0); LYMPHOCYTES # (AUTO) 1.2 X 10^3 (1.0-4.0); LYMPHOCYTES % (AUTO) 24 % (12-44); MEAN CORPUSCULAR HEMOGLOBIN 32 PG (25-34); MEAN CORPUSCULAR HGB CONC 34 G/DL (32-36); MEAN CORPUSCULAR VOLUME 93 FL (80-99); MEAN PLATELET VOLUME 10.1 FL (7.4-10.4); MONOCYTES # (AUTO) 0.4 X 10^3 (0.0-1.0); MONOCYTES % (AUTO) 8 % (0-12); NEUTROPHILS # (AUTO) 3.3 X 10^3 (1.8-7.8); NEUTROPHILS % (AUTO) 65 % (42-75); PLATELET COUNT 222 10^3/uL (130-400); RED CELL DISTRIBUTION WIDTH 12.1 % (10.0-14.5); WHITE BLOOD COUNT 5.1 10^3/uL (4.3-11.0)
[2019-11-07 12:37] LABS: ALANINE AMINOTRANSFERASE 27 U/L (0-55); ALBUMIN 4.7 GM/DL (3.2-4.5); ALKALINE PHOSPHATASE 72 U/L (40-136); BILIRUBIN,TOTAL 0.6 MG/DL (0.1-1.0); BUN/CREATININE RATIO 15; CALCIUM 9.5 MG/DL (8.5-10.1); CARBON DIOXIDE 23 MMOL/L (21-32); CHLORIDE 106 MMOL/L (98-107); GFR ESTIMATED > 60; GLUCOSE 94 MG/DL (70-105); POTASSIUM 4.1 MMOL/L (3.6-5.0); SODIUM 140 MMOL/L (135-145); TOTAL PROTEIN 7.4 GM/DL (6.4-8.2)
[~2019-11-08 14:02] MED LIST changes: +ACHYD1T PO; -CATHETER FLUSH 10 ML SYR IV PRN; -HOLD METFORMIN - RECEIVED CONTRAST 20 ML VIAL IV SCH; -HYDR-3820 PO; -IOHEXOL 350 MG/ML 100 ML (OMNIPAQUE 350) VIAL IV ONE; -NS 100 ML (IVPB) BAG IV ONE
== END 2020-02-05 | disposition home or self-care (01) ==
LOC: ONC 14:02
PROVIDERS: ATTEND Internal Medicine Hematology & Oncology
DX: C50.412 Malignant neoplasm of upper-outer quadrant of left female breast (principal); Z85.850 Personal history of malignant neoplasm of thyroid; E89.0 Postprocedural hypothyroidism; M85.88 Other specified disorders of bone density and structure, other site; R91.8 Other nonspecific abnormal finding of lung field; K76.9 Liver disease, unspecified; Z17.0 Estrogen receptor positive status [ER+]; Z79.811 Long term (current) use of aromatase inhibitors; Z79.899 Other long term (current) drug therapy; Z92.21 Personal history of antineoplastic chemotherapy; Z92.3 Personal history of irradiation; Z80.42 Family history of malignant neoplasm of prostate
CPT/HCPCS: 80053; 84443; 85025; 99213

== ENCOUNTER → 2020-01-18 | Outpatient (CLI) | payer BC ==
[~2020-01-18] MED LIST changes: -ACHYD1T PO; +HYDR-3820 PO
--- NOTE | 2020-01-18 13:30 | Diagnostic Imaging Report ---
INDICATION: Cough. TECHNIQUE: Two view chest 1:09 PM CORRELATION STUDY: 07/28/2018 FINDINGS: The heart size, mediastinal configuration and pulmonary vasculature are within normal limits. Lung bases are somewhat obscured by overlying breast implants. Scattered surgical clips are present. Lung ordoñez appear to be clear without infiltrate. No effusion or pneumothorax. Lung ordoñez are somewhat hyperinflated. Slight accentuated thoracic kyphosis degenerative changes thoracic spine. IMPRESSION: 1. Mildly hyperinflated lung ordoñez. Negative for acute cardiopulmonary abnormality. Dictated by: Dictated on workstation # [id number]
== END ==
LOC: RAD 12:53
PROVIDERS: ATTEND Internal Medicine Hematology & Oncology
DX: J98.4 Other disorders of lung (principal)
CPT/HCPCS: 71046

== ENCOUNTER 2020-02-07 14:47 | Outpatient (RCR) | payer BC ==
[~2020-02-07 14:47] MED LIST changes: +ACHYD1T PO; -HYDR-3820 PO
[2020-02-07 14:58] LABS: BASOPHILS % (AUTO) 0 % (0-10); EOSINOPHILS % (AUTO) 0 % (0-10); HEMATOCRIT 39 % (35-52); HEMOGLOBIN 13.1 G/DL (11.5-16.0); LYMPHOCYTES # (AUTO) 0.7 X 10^3 (1.0-4.0); LYMPHOCYTES % (AUTO) 5 % (12-44); MEAN CORPUSCULAR HEMOGLOBIN 31 PG (25-34); MEAN CORPUSCULAR HGB CONC 34 G/DL (32-36); MEAN CORPUSCULAR VOLUME 92 FL (80-99); MEAN PLATELET VOLUME 8.7 FL (7.4-10.4); MONOCYTES # (AUTO) 0.2 X 10^3 (0.0-1.0); MONOCYTES % (AUTO) 1 % (0-12); NEUTROPHILS # (AUTO) 12.3 X 10^3 (1.8-7.8); NEUTROPHILS % (AUTO) 94 % (42-75); PLATELET COUNT 458 10^3/uL (130-400); RED CELL DISTRIBUTION WIDTH 12.1 % (10.0-14.5); WHITE BLOOD COUNT 13.2 10^3/uL (4.3-11.0)
[2020-02-07 15:17] LABS: ALANINE AMINOTRANSFERASE 32 U/L (0-55); ALBUMIN 4.1 GM/DL (3.2-4.5); ALKALINE PHOSPHATASE 110 U/L (40-136); BILIRUBIN,TOTAL 0.3 MG/DL (0.1-1.0); BUN/CREATININE RATIO 16; CARBON DIOXIDE 23 MMOL/L (21-32); CHLORIDE 103 MMOL/L (98-107); CREATININE SERUM 0.76 MG/DL (0.60-1.30); GFR ESTIMATED > 60; GLUCOSE 127 MG/DL (70-105); SODIUM 136 MMOL/L (135-145); TOTAL PROTEIN 7.1 GM/DL (6.4-8.2)
== END 2020-05-07 | disposition home or self-care (01) ==
LOC: ONC 14:47
PROVIDERS: ATTEND Internal Medicine Hematology & Oncology
DX: C50.412 Malignant neoplasm of upper-outer quadrant of left female breast (principal); Z85.850 Personal history of malignant neoplasm of thyroid; E89.0 Postprocedural hypothyroidism; M85.88 Other specified disorders of bone density and structure, other site; R91.8 Other nonspecific abnormal finding of lung field; K76.9 Liver disease, unspecified; Z17.0 Estrogen receptor positive status [ER+]; Z79.811 Long term (current) use of aromatase inhibitors; Z79.899 Other long term (current) drug therapy; Z92.21 Personal history of antineoplastic chemotherapy; Z92.3 Personal history of irradiation; Z80.42 Family history of malignant neoplasm of prostate
CPT/HCPCS: 80053; 83615; 84443; 85025; G0463; 99213

== ENCOUNTER 2020-05-08 08:48 | Outpatient (RCR) | payer BC ==
[2020-05-08 09:08] LABS: BASOPHILS % (AUTO) 1 % (0-10); EOSINOPHILS # (AUTO) 0.1 10^3/uL (0.0-0.3); EOSINOPHILS % (AUTO) 1 % (0-10); HEMATOCRIT 39 % (35-52); HEMOGLOBIN 12.9 G/DL (11.5-16.0); LYMPHOCYTES # (AUTO) 1.1 X 10^3 (1.0-4.0); LYMPHOCYTES % (AUTO) 26 % (12-44); MEAN CORPUSCULAR HEMOGLOBIN 32 PG (25-34); MEAN CORPUSCULAR HGB CONC 33 G/DL (32-36); MEAN CORPUSCULAR VOLUME 97 FL (80-99); MEAN PLATELET VOLUME 10.1 FL (7.4-10.4); MONOCYTES # (AUTO) 0.5 X 10^3 (0.0-1.0); MONOCYTES % (AUTO) 11 % (0-12); NEUTROPHILS # (AUTO) 2.6 X 10^3 (1.8-7.8); NEUTROPHILS % (AUTO) 62 % (42-75); PLATELET COUNT 188 10^3/uL (130-400); WHITE BLOOD COUNT 4.2 10^3/uL (4.3-11.0)
[2020-05-08 09:33] LABS: ALANINE AMINOTRANSFERASE 21 U/L (0-55); ALBUMIN 4.1 GM/DL (3.2-4.5); ALKALINE PHOSPHATASE 50 U/L (40-136); BILIRUBIN,TOTAL 0.5 MG/DL (0.1-1.0); BUN/CREATININE RATIO 10; CALCIUM 8.8 MG/DL (8.5-10.1); CARBON DIOXIDE 24 MMOL/L (21-32); CHLORIDE 107 MMOL/L (98-107); CREATININE SERUM 0.81 MG/DL (0.60-1.30); GFR ESTIMATED > 60; GLUCOSE 88 MG/DL (70-105); POTASSIUM 3.9 MMOL/L (3.6-5.0); SODIUM 141 MMOL/L (135-145); TOTAL PROTEIN 6.8 GM/DL (6.4-8.2)
== END 2020-08-06 | disposition home or self-care (01) ==
LOC: ONC 08:48
PROVIDERS: ATTEND Internal Medicine Hematology & Oncology
DX: C50.412 Malignant neoplasm of upper-outer quadrant of left female breast (principal); E89.0 Postprocedural hypothyroidism; M85.88 Other specified disorders of bone density and structure, other site; R91.8 Other nonspecific abnormal finding of lung field; K76.9 Liver disease, unspecified; Z85.850 Personal history of malignant neoplasm of thyroid; Z17.0 Estrogen receptor positive status [ER+]; Z79.811 Long term (current) use of aromatase inhibitors; Z79.899 Other long term (current) drug therapy; Z92.21 Personal history of antineoplastic chemotherapy; Z92.3 Personal history of irradiation; Z80.42 Family history of malignant neoplasm of prostate
CPT/HCPCS: 80053; 82306; 84443; 85025; G0463; 99213

== ENCOUNTER 2020-10-04 13:24 | Outpatient (RCR) | payer BC ==
[2020-10-04 10:16] LABS: BASOPHILS % (AUTO) 0 % (0-10); EOSINOPHILS # (AUTO) 0.1 10^3/uL (0.0-0.3); EOSINOPHILS % (AUTO) 2 % (0-10); HEMATOCRIT 37 % (35-52); HEMOGLOBIN 11.9 g/dL (11.5-16.0); LYMPHOCYTES % (AUTO) 22 % (12-44); MEAN CORPUSCULAR HEMOGLOBIN 31 pg (25-34); MEAN CORPUSCULAR HGB CONC 33 g/dL (32-36); MEAN CORPUSCULAR VOLUME 96 fL (80-99); MEAN PLATELET VOLUME 10.1 fL (9.0-12.2); MONOCYTES # (AUTO) 0.4 10^3/uL (0.0-1.0); MONOCYTES % (AUTO) 10 % (0-12); NEUTROPHILS # (AUTO) 2.9 10^3/uL (1.8-7.8); NEUTROPHILS % (AUTO) 66 % (42-75); PLATELET COUNT 190 10^3/uL (130-400); WHITE BLOOD COUNT 4.4 10^3/uL (4.3-11.0)
[2020-10-04 10:43] LABS: ALANINE AMINOTRANSFERASE 25 U/L (0-55); ALBUMIN 4.1 GM/DL (3.2-4.5); ALKALINE PHOSPHATASE 42 U/L (40-136); BILIRUBIN,TOTAL 0.3 MG/DL (0.1-1.0); BUN/CREATININE RATIO 15; CALCIUM 8.9 MG/DL (8.5-10.1); CARBON DIOXIDE 22 MMOL/L (21-32); CHLORIDE 108 MMOL/L (98-107); CREATININE SERUM 0.84 MG/DL (0.60-1.30); GFR ESTIMATED > 60; GLUCOSE 107 MG/DL (70-105); POTASSIUM 4.9 MMOL/L (3.6-5.0); SODIUM 140 MMOL/L (135-145); TOTAL PROTEIN 6.8 GM/DL (6.4-8.2)
== END 2020-11-30 09:55 | disposition home or self-care (01) ==
LOC: ONC 13:24
PROVIDERS: ATTEND Internal Medicine Hematology & Oncology
DX: C50.412 Malignant neoplasm of upper-outer quadrant of left female breast (principal); E89.0 Postprocedural hypothyroidism; M85.88 Other specified disorders of bone density and structure, other site; R91.8 Other nonspecific abnormal finding of lung field; K76.9 Liver disease, unspecified; Z85.850 Personal history of malignant neoplasm of thyroid; Z17.0 Estrogen receptor positive status [ER+]; Z79.811 Long term (current) use of aromatase inhibitors; Z79.899 Other long term (current) drug therapy; Z92.21 Personal history of antineoplastic chemotherapy; Z92.3 Personal history of irradiation; Z80.42 Family history of malignant neoplasm of prostate
CPT/HCPCS: 80053; 82306; 84443; 85025

== ENCOUNTER 2020-12-13 14:59 | Outpatient (RCR) | payer BC ==
[2020-12-13 15:07] LABS: BASOPHILS % (AUTO) 1 % (0-10); EOSINOPHILS # (AUTO) 0.1 10^3/uL (0.0-0.3); EOSINOPHILS % (AUTO) 1 % (0-10); HEMATOCRIT 38 % (35-52); HEMOGLOBIN 12.5 g/dL (11.5-16.0); LYMPHOCYTES # (AUTO) 1.3 X 10^3 (1.0-4.0); LYMPHOCYTES % (AUTO) 23 % (12-44); MEAN CORPUSCULAR HEMOGLOBIN 31 pg (25-34); MEAN CORPUSCULAR HGB CONC 33 g/dL (32-36); MEAN CORPUSCULAR VOLUME 95 fL (80-99); MEAN PLATELET VOLUME 10.3 fL (9.0-12.2); MONOCYTES # (AUTO) 0.4 X 10^3 (0.0-1.0); MONOCYTES % (AUTO) 7 % (0-12); NEUTROPHILS # (AUTO) 3.9 X 10^3 (1.8-7.8); NEUTROPHILS % (AUTO) 69 % (42-75); PLATELET COUNT 211 10^3/uL (130-400); WHITE BLOOD COUNT 5.7 10^3/uL (4.3-11.0)
[2020-12-13 15:21] LABS: ALANINE AMINOTRANSFERASE 16 U/L (0-55); ALBUMIN 4.2 GM/DL (3.2-4.5); ALKALINE PHOSPHATASE 47 U/L (40-136); BILIRUBIN,TOTAL 0.3 MG/DL (0.1-1.0); BUN/CREATININE RATIO 19; CALCIUM 8.8 MG/DL (8.5-10.1); CARBON DIOXIDE 23 MMOL/L (21-32); CHLORIDE 107 MMOL/L (98-107); CREATININE SERUM 0.77 MG/DL (0.60-1.30); GFR ESTIMATED > 60; GLUCOSE 151 MG/DL (70-105); POTASSIUM 3.6 MMOL/L (3.6-5.0); SODIUM 140 MMOL/L (135-145)
== END 2021-03-13 | disposition home or self-care (01) ==
LOC: ONC 14:59
PROVIDERS: ATTEND Internal Medicine Hematology & Oncology
DX: C50.412 Malignant neoplasm of upper-outer quadrant of left female breast (principal); E55.9 Vitamin D deficiency, unspecified; M85.80 Other specified disorders of bone density and structure, unspecified site; E03.9 Hypothyroidism, unspecified; Z85.850 Personal history of malignant neoplasm of thyroid; Z17.0 Estrogen receptor positive status [ER+]; Z79.811 Long term (current) use of aromatase inhibitors; Z79.899 Other long term (current) drug therapy; Z92.21 Personal history of antineoplastic chemotherapy; Z92.3 Personal history of irradiation; Z78.0 Asymptomatic menopausal state; Z90.13 Acquired absence of bilateral breasts and nipples; Z90.89 Acquired absence of other organs
CPT/HCPCS: 80053; 82306; 84443; 85025; G0463; 99213

== ENCOUNTER → 2021-03-12 | Outpatient (CLI) | payer BC ==
--- NOTE | 2021-03-12 14:31 | Diagnostic Imaging Report ---
INDICATION: Postmenopausal female. COMPARISON: 06/03/2018. FINDINGS: AP Spine L1-L4: [BMD (g/cm2): 0.933] [T-Score: -2.2] [Z-Score: -1.2] [BMD Previous: .967] [BMD % Change: -3.5] LT Hip Neck: [BMD (g/cm2): 0.999] [T-Score: -0.3] [Z-Score: 0.9] LT Hip Total: [BMD (g/cm2):1.040] [T-Score:0.3] [Z-Score: 1.1] [BMD Previous: 1.045] [BMD % Change: -0.5] RT Hip Neck: [BMD (g/cm2):0.940] [T-Score:-0.7] [Z-Score:0.4] RT Hip Total: [BMD (g/cm2):1.020] [T-score:0.1] [Z-Score:0.9] [BMD Previous:1.039] [BMD % Change:-1.8] *Indicates significant change from prior examination based on 95% confidence level. World Health Organization criteria for BMD interpretation classify patients as Normal (T-score at or above -1.0), Osteopenic (T-score between -1.0 and -2.5) or Osteoporotic (T-score at or below -2.5). LIMITATIONS AND MODIFICATION: None. FRACTURE RISK (FRAX SCORE): The ten year probability of (%): Major Osteoporotic Fracture: [7.3] Hip Fracture: [0.3] IMPRESSION: 1. Osteopenia (Low bone mass). 2. No statistically significant change in bone mineral density since prior examination. 3. See below National Osteoporosis Foundation guidelines on when to potentially initiate pharmacologic therapy. Based on the National Osteoporosis Foundation Guidelines, pharmacologic treatment should be initiated in any of the following, unless clinical conditions suggest otherwise: * Any patient with prior fragility fracture of the hip or vertebrae. A spine fracture indicates 5X risk for subsequent spine fracture and 2X risk for subsequent hip fracture. * Osteoporosis (T-score <-2.5). * Postmenopausal women and men age 50 and older with low bone mass/osteopenia (T-score between -1.0 and -2.5) by DXA and 10-year major osteoporotic fracture greater than 20% or a 10-year probability of hip fracture greater than 3%. These fracture risks are supplied above in the FRAX score, if applicable. * Clinician judgement and/or patient preferences may indicate treatment for people with 10-year fracture probabilities above or below these levels. Dictated by: Dictated on workstation # [id number]
== END ==
LOC: RAD 13:00
PROVIDERS: ATTEND Internal Medicine Hematology & Oncology
DX: C50.412 Malignant neoplasm of upper-outer quadrant of left female breast (principal); M85.80 Other specified disorders of bone density and structure, unspecified site; Z78.0 Asymptomatic menopausal state
CPT/HCPCS: 77080

== ENCOUNTER 2021-03-19 15:25 | Outpatient (RCR) | payer BC ==
[2021-03-19 15:42] LABS: BASOPHILS % (AUTO) 1 % (0-10); EOSINOPHILS # (AUTO) 0.1 10^3/uL (0.0-0.3); EOSINOPHILS % (AUTO) 1 % (0-10); HEMATOCRIT 38 % (35-52); HEMOGLOBIN 12.2 g/dL (11.5-16.0); LYMPHOCYTES # (AUTO) 1.6 10^3/uL (1.0-4.0); LYMPHOCYTES % (AUTO) 28 % (12-44); MEAN CORPUSCULAR HEMOGLOBIN 31 pg (25-34); MEAN CORPUSCULAR HGB CONC 32 g/dL (32-36); MEAN CORPUSCULAR VOLUME 99 fL (80-99); MEAN PLATELET VOLUME 10.5 fL (9.0-12.2); MONOCYTES # (AUTO) 0.4 10^3/uL (0.0-1.0); MONOCYTES % (AUTO) 7 % (0-12); NEUTROPHILS # (AUTO) 3.6 10^3/uL (1.8-7.8); NEUTROPHILS % (AUTO) 62 % (42-75); PLATELET COUNT 202 10^3/uL (130-400); WHITE BLOOD COUNT 5.8 10^3/uL (4.3-11.0)
[2021-03-19 16:02] LABS: ALANINE AMINOTRANSFERASE 24 U/L (0-55); ALBUMIN 4.1 GM/DL (3.2-4.5); ALKALINE PHOSPHATASE 45 U/L (40-136); BILIRUBIN,TOTAL 0.2 MG/DL (0.1-1.0); BUN/CREATININE RATIO 15; CALCIUM 8.6 MG/DL (8.5-10.1); CARBON DIOXIDE 26 MMOL/L (21-32); CHLORIDE 108 MMOL/L (98-107); CREATININE SERUM 0.87 MG/DL (0.60-1.30); GFR ESTIMATED > 60; GLUCOSE 132 MG/DL (70-105); POTASSIUM 3.4 MMOL/L (3.6-5.0); SODIUM 142 MMOL/L (135-145); TOTAL PROTEIN 6.9 GM/DL (6.4-8.2)
== END 2021-06-17 | disposition home or self-care (01) ==
LOC: ONC 15:25
PROVIDERS: ATTEND Internal Medicine Hematology & Oncology
DX: C50.412 Malignant neoplasm of upper-outer quadrant of left female breast (principal); E55.9 Vitamin D deficiency, unspecified; M85.80 Other specified disorders of bone density and structure, unspecified site; E03.9 Hypothyroidism, unspecified; Z85.850 Personal history of malignant neoplasm of thyroid; Z17.0 Estrogen receptor positive status [ER+]; Z79.899 Other long term (current) drug therapy; Z92.21 Personal history of antineoplastic chemotherapy; Z92.3 Personal history of irradiation; Z78.0 Asymptomatic menopausal state; Z90.13 Acquired absence of bilateral breasts and nipples; Z90.89 Acquired absence of other organs; Z79.890 Hormone replacement therapy
CPT/HCPCS: 80053; 82306; 84443; 85025; G0463; 99213

== ENCOUNTER → 2021-09-23 | Outpatient (CLI) | payer BC ==
[2021-09-23 13:07] LABS: BASOPHILS % (AUTO) 0 % (0-10); EOSINOPHILS % (AUTO) 1 % (0-10); HEMATOCRIT 39 % (35-52); HEMOGLOBIN 12.9 g/dL (11.5-16.0); LYMPHOCYTES # (AUTO) 1.3 10^3/uL (1.0-4.0); LYMPHOCYTES % (AUTO) 19 % (12-44); MEAN CORPUSCULAR HEMOGLOBIN 31 pg (25-34); MEAN CORPUSCULAR HGB CONC 33 g/dL (32-36); MEAN CORPUSCULAR VOLUME 94 fL (80-99); MONOCYTES # (AUTO) 0.7 10^3/uL (0.0-1.0); MONOCYTES % (AUTO) 10 % (0-12); NEUTROPHILS # (AUTO) 4.8 10^3/uL (1.8-7.8); NEUTROPHILS % (AUTO) 70 % (42-75); PLATELET COUNT 208 10^3/uL (130-400); WHITE BLOOD COUNT 6.9 10^3/uL (4.3-11.0)
[2021-09-23 13:24] LABS: ALBUMIN 4.1 GM/DL (3.2-4.5); BILIRUBIN,TOTAL 0.4 MG/DL (0.1-1.0); CALCIUM 8.8 MG/DL (8.5-10.1); CREATININE SERUM 0.74 MG/DL (0.60-1.30); POTASSIUM 3.7 MMOL/L (3.6-5.0); TOTAL PROTEIN 7.2 GM/DL (6.4-8.2)
== END ==
LOC: EDSTATUS 06-18 10:14 → ONC 12:48
PROVIDERS: ATTEND Internal Medicine Hematology & Oncology
DX: C50.412 Malignant neoplasm of upper-outer quadrant of left female breast (principal); E55.9 Vitamin D deficiency, unspecified; L03.313 Cellulitis of chest wall; Z92.21 Personal history of antineoplastic chemotherapy; Z90.13 Acquired absence of bilateral breasts and nipples; Z98.890 Other specified postprocedural states; Z92.3 Personal history of irradiation; Z85.850 Personal history of malignant neoplasm of thyroid; Z90.89 Acquired absence of other organs; Z78.0 Asymptomatic menopausal state; Z79.811 Long term (current) use of aromatase inhibitors
CPT/HCPCS: 80053; 82306; 84443; 85025; G0463; 99213

== ENCOUNTER → 2021-10-09 | Outpatient (CLI) | payer BC ==
--- NOTE | 2021-10-09 16:51 | Diagnostic Imaging Report ---
INDICATION: Swelling to the right breast. EXAMINATION: Sonographic interrogation of the right breast was performed. FINDINGS: There is a right breast implant. There is a smoothly marginated area of hypoechogenicity along the implant shell measuring 5.2 x 0.7 cm. This has the appearance of complex fluid/debris, 9:00 location. No internal vascularity is present. The axilla are unremarkable. No other abnormalities are detected. IMPRESSION: There is a complex fluid collection along the implant shell, 9:00 location, measuring approximate 7 mm in thickness and extending 5 cm. This could represent blood or pus. No other significant abnormality is detected. Follow-up after a course of therapy is recommended to confirm clearing. BI-RADS Category 3 Dictated by: Dictated on workstation # [id number]
== END ==
LOC: RAD 16:08
PROVIDERS: ATTEND Family Medicine
DX: N63.15 Unspecified lump in the right breast, overlapping quadrants (principal); Z98.82 Breast implant status
CPT/HCPCS: 76641

== ENCOUNTER → 2023-03-17 | Outpatient (CLI) | payer BC ==
--- NOTE | 2023-03-17 11:57 | Diagnostic Imaging Report ---
INDICATION: Postmenopausal state. COMPARISON: 03/12/2021 FINDINGS: AP Spine L1-L4: [BMD (g/cm2): 0.970] [T-Score: -1.9] [Z-Score: -0.6] [BMD Previous: 0.933] [BMD % Change: 4.0]* LT Hip Neck: [BMD (g/cm2): 0.970] [T-Score: -0.5] [Z-Score: 0.8] LT Hip Total: [BMD (g/cm2):1.032] [T-Score:0.2] [Z-Score: 1.2] [BMD Previous: 1.040] [BMD % Change: -0.8] RT Hip Neck: [BMD (g/cm2):0.911] [T-Score:-0.9] [Z-Score:0.4] RT Hip Total: [BMD (g/cm2):0.992] [T-score:-0.1] [Z-Score:0.9] [BMD Previous:1.020] [BMD % Change:-2.7] *Indicates significant change from prior examination based on 95% confidence level. World Health Organization criteria for BMD interpretation classify patients as Normal (T-score at or above -1.0), Osteopenic (T-score between -1.0 and -2.5) or Osteoporotic (T-score at or below -2.5). LIMITATIONS AND MODIFICATION: None. FRACTURE RISK (FRAX SCORE): The ten year probability of (%): Major Osteoporotic Fracture: [9.1] Hip Fracture: [1.3] IMPRESSION: 1. Osteopenia (Low bone mass). 2. Bone mineral density within the lumbar spine has significantly increased since the prior examination. Bone mineral density within the bilateral hips has not significantly changed. 3. See below National Osteoporosis Foundation guidelines on when to potentially initiate pharmacologic therapy. Based on the National Osteoporosis Foundation Guidelines, pharmacologic treatment should be initiated in any of the following, unless clinical conditions suggest otherwise: * Any patient with prior fragility fracture of the hip or vertebrae. A spine fracture indicates 5X risk for subsequent spine fracture and 2X risk for subsequent hip fracture. * Osteoporosis (T-score <-2.5). * Postmenopausal women and men age 50 and older with low bone mass/osteopenia (T-score between -1.0 and -2.5) by DXA and 10-year major osteoporotic fracture greater than 20% or a 10-year probability of hip fracture greater than 3%. These fracture risks are supplied above in the FRAX score, if applicable. * Clinician judgement and/or patient preferences may indicate treatment for people with 10-year fracture probabilities above or below these levels. Dictated by: Dictated on workstation # [id number]
== END ==
LOC: RAD 09:43
PROVIDERS: ATTEND Nurse Practitioner
DX: C50.412 Malignant neoplasm of upper-outer quadrant of left female breast (principal); M85.88 Other specified disorders of bone density and structure, other site; R06.2 Wheezing; R05.3 Chronic cough; Z85.850 Personal history of malignant neoplasm of thyroid; E55.9 Vitamin D deficiency, unspecified; M85.80 Other specified disorders of bone density and structure, unspecified site; Z92.3 Personal history of irradiation; Z79.811 Long term (current) use of aromatase inhibitors
CPT/HCPCS: 77080